=== PATIENT | male | born 1950 | race Two or more races ===

== ENCOUNTER 2017-08-16 20:11 | Inpatient (IN) | payer MEDICARE, MEDICAID ==
[~2017-08-16] VITALS: Ht 177.8 cm; Wt 77.1 kg
[~2017-08-16 20:11] MED LIST: ASPIRIN325 MG ORAL; ATORVASTATIN CA20 MG ORAL; DEPAKOTE SPRIN125 MG PO; DOCUSATE SODIU250 MG ORAL; KEPPRA LIQ100 MG/1 M ORAL; KEPPRA500 MG ORAL; LACTULOSE20 GM/301 ORAL; MULTI-VITAMIN1 EACH PO; POLYVINYL ALCOH15 ML OP
[2017-08-16] MEDS ORDERED: Lidocaine 1% Plain 30 ml INJ ONE ×2 (21:14→23:45)
[2017-08-16 21:50] VITALS: BP 207/87
[2017-08-16 21:53] LABS: BASOPHILS % (AUTO) 0.6 % (0.0-2.0); EOSINOPHILS % (AUTO) 0.7 % (0.0-3.0); HEMATOCRIT 49.2 % (42.0-52.0); LYMPHOCYTES % (AUTO) 17.9 % (20.0-45.0); MEAN CORPUSCULAR VOLUME 91 FL (80-99); MONOCYTES % (AUTO) 7.8 % (1.0-10.0); PLATELET COUNT 129 K/UL (150-450); RED CELL DISTRIBUTION WIDTH 14.2 % (11.6-14.8); WHITE BLOOD COUNT 7.3 K/UL (4.8-10.8)
[2017-08-16 21:55] LABS: ANION GAP 5 mmol/L (5-15); BLOOD UREA NITROGEN 11 mg/dL (7-18); CALCIUM 8.8 MG/DL (8.5-10.1); CARBON DIOXIDE 34 MMOL/L (21-32); CHLORIDE 108 MMOL/L (98-107); CREATININE 0.7 MG/DL (0.55-1.30); POTASSIUM 3.2 MMOL/L (3.5-5.1); SODIUM 147 MMOL/L (136-145)
[2017-08-16 22:01] LABS: ALANINE AMINOTRANSFERASE 9 U/L (12-78); ALBUMIN 3.2 G/DL (3.4-5.0); ALBUMIN/GLOBULIN RATIO 0.7 (1.0-2.7); ALKALINE PHOSPHATASE 115 U/L (46-116); ASPARTATE AMINO TRANSFERASE 18 U/L (15-37); BILIRUBIN,TOTAL 0.4 MG/DL (0.2-1.0)
[2017-08-16] MEDS ORDERED: Lidocaine 2% MPF 5ml Vial INJ ONE ×2 (22:03→23:45)
--- NOTE | 2017-08-16 22:22 | Emergency Room Report ---
History of Present Illness General Chief Complaint: Seizure Source: Patient, Medical Record Present Illness HPI Patient was a 66-year-old male who presented after witnessed seizure. [facility]. Patient prior history of seizure disorder. He was noted to have been taking the Depakote as well as other seizure medications. He was given Versed by EMS. Patient was noted to have prior baseline mental status changes due to prior CVA Allergies: Coded Allergies: No Known Allergies (Unverified , 01/11/16) Patient History Past Medical History: see triage record Reviewed Nursing Documentation: PMH: Agreed; PSxH: Agreed Nursing Documentation-PMH Past Medical History: No History, Except For Hx Cardiac Problems: Yes - athscl heart disease, anemia, hyperlipdemia Hx Hypertension: Yes Hx Asthma: Yes Hx Cancer: No Hx Gastrointestinal Problems: No History Of Psychiatric Problem: Yes - paranoid schizophrenia, depression Hx Seizures: Yes Review of Systems All Other Systems: limited - by mental status Physical Exam Vital Signs Date Time Temp Pulse Resp B/P (MAP) Pulse Ox O2 Delivery O2 Flow Rate FiO2 08/16/17 20:05 98.3 112 20 164/95 96 Non-Rebreather 15.0 98.2 General Appearance: moderate distress, Chronically Ill Neck: limited range of motion Respiratory: chest non-tender, lungs clear, normal breath sounds, no rhonchi Cardiovascular #1: normal peripheral pulses, no edema Gastrointestinal: normal inspection, soft Musculoskeletal: calf tenderness Neurologic: aphasia, motor weakness Psychiatric: depressed affect Skin: normal inspection Procedures Additional Procedure Procedure Narrative Right tibial interosseous line was placed after attempting right IJ and right subclavian central venous catheter emergently due to lack of IV access.patient was sterilely prepped with Betadine. Medical Decision Making Diagnostic Impression: Primary Impression: Uncontrolled seizures Additional Impression: Acute encephalopathy ER Course Patient presented for seizure. Differential diagnosis included cysticercosis, electrolyte abnormality, mass lesion, or cranial hemorrhage.Because of complexity of patient's case laboratory testing and imaging studies were ordered. Laboratory studies were unremarkable. The patient was noted to be somewhat somnolent after getting Versed by EMS. The patient appears to be protecting his airway.Dr. Banuelos was contacted for inpatient management due to complexity of medical condition. Labs Test 08/16/17 20:50 White Blood Count 7.3 K/UL (4.8-10.8) Red Blood Count 5.40 M/UL (4.70-6.10) Hemoglobin 16.0 G/DL (14.2-18.0) Hematocrit 49.2 % (42.0-52.0) Mean Corpuscular Volume 91 FL (80-99) Mean Corpuscular Hemoglobin 29.7 PG (27.0-31.0) Mean Corpuscular Hemoglobin Concent 32.6 G/DL (32.0-36.0) Red Cell Distribution Width 14.2 % (11.6-14.8) Platelet Count 129 K/UL (150-450) Mean Platelet Volume 8.7 FL (6.5-10.1) Neutrophils (%) (Auto) 73.0 % (45.0-75.0) Lymphocytes (%) (Auto) 17.9 % (20.0-45.0) Monocytes (%) (Auto) 7.8 % (1.0-10.0) Eosinophils (%) (Auto) 0.7 % (0.0-3.0) Basophils (%) (Auto) 0.6 % (0.0-2.0) Sodium Level 147 MMOL/L (136-145) Potassium Level 3.2 MMOL/L (3.5-5.1) Chloride Level 108 MMOL/L (98-107) Carbon Dioxide Level 34 MMOL/L (21-32) Anion Gap 5 mmol/L (5-15) Blood Urea Nitrogen 11 mg/dL (7-18) Creatinine 0.7 MG/DL (0.55-1.30) Estimat Glomerular Filtration Rate > 60 mL/min (>60) Glucose Level 131 MG/DL (74-106) Calcium Level 8.8 MG/DL (8.5-10.1) Total Bilirubin 0.4 MG/DL (0.2-1.0) Aspartate Amino Transf (AST/SGOT) 18 U/L (15-37) Alanine Aminotransferase (ALT/SGPT) 9 U/L (12-78) Alkaline Phosphatase 115 U/L (46-116) Total Protein 7.5 G/DL (6.4-8.2) Albumin 3.2 G/DL (3.4-5.0) Globulin 4.3 g/dL Albumin/Globulin Ratio 0.7 (1.0-2.7) Valproic Acid (Depakene) Level 100 MCG/ML (50-100) EKG Diagnostic Results Rate: normal Rhythm: NSR ST Segments: no acute changes Rhythm Strip Diag. Results EP Interpretation: yes Rhythm: NSR, no PVC's, no ectopy Last Vital Signs Date Time Temp Pulse Resp B/P (MAP) Pulse Ox O2 Delivery O2 Flow Rate FiO2 08/16/17 21:50 98.2 112 18 207/87 93 Nasal Cannula 6.0 98.2 Status: unchanged Disposition: ADMITTED INPATIENT Condition: Serious Moris Dowell Aug 16, 2017 22:22
[2017-08-16] MEDS ORDERED: POTASSIUM CHLO20 ME2 ORAL (23:04)
[2017-08-16] MEDS ORDERED: VITAMIN B-12100 MC1 PO (23:04)
[2017-08-16] MEDS ORDERED: KEPPRA LIQ100 MG/1 M ORAL (23:04)
[2017-08-16] MEDS ORDERED: LIPITOR20 MG ORAL (23:04)
[2017-08-16] MEDS ORDERED: LORazepam Inj 2mg/ml 1ml IV PRN (23:30)
[2017-08-16] MEDS ORDERED: Morphine Sulfate 2mg/ml Inj IVP PRN (23:30)
[2017-08-16] MEDS ORDERED: Mylanta II UD 30ml ORAL PRN (23:30)
[2017-08-16] MEDS ORDERED: Zolpidem 5mg tab ORAL PRN (23:30)
[2017-08-16] MEDS ORDERED: Miralax 17gm pkt ORAL PRN (23:30)
[2017-08-16 23:47] VITALS: BP 168/80
[2017-08-17] VITALS (7 sets, daily range): BP systolic 109–167; BP diastolic 59–71
[2017-08-17] MEDS: Depakote 125mg Sprinkles ORAL SCH ×2 (09:12→17:34)
[2017-08-17] MEDS: Heparin 5000 units/ml inj SUBQ SCH ×2 (09:13→21:00)
[2017-08-17] MEDS: levETIRAcetam 500mg/5ml Liquid ORAL SCH (09:13)
[2017-08-17] MEDS ORDERED: Lidocaine 1% Plain 30 ml INJ PRN (10:45)
[2017-08-17] MEDS ORDERED: Heparin 2000 units/Ns 1000ml INJ PRN (10:45)
--- NOTE | 2017-08-17 11:16 | History and Physical ---
History of Present Illness General Date patient seen: Aug 17, 2017 Reason for Hospitalization: Seizure Present Illness HPI 66-year-old male with hx of CVA, seizures, DNR, [facility] resident presented to ER by paramedics with CC of witnessed seizure. He was noted to have been taking the Depakote as well as other seizure medications. He was given Versed by EMS. Pt was at [facility] in 2016 for the same reason. He looks somnolent now. In no acute distress. Allergies: Coded Allergies: No Known Allergies (Unverified , 01/11/16) Medication History Scheduled Aspirin* (Aspirin*), 325 MG ORAL DAILY, (Reported) Atorvastatin Calcium* (Atorvastatin Calcium*), 20 MG ORAL BEDTIME, (Reported) Atorvastatin Calcium* (Lipitor*), 20 MG ORAL BEDTIME, (Reported) Divalproex Sodium (Depakote Sprinkle), 500 MG PO BID, (Reported) Docusate Sodium* (Docusate Sodium*), 250 MG ORAL DAILY, (Reported) Levetiracetam (Keppra), 10 ML ORAL DAILY, (Reported) Levetiracetam (Keppra), 15 ML ORAL QHS, (Reported) Levetiracetam (Keppra), 1,500 MG ORAL EVERY 12 HOURS Levetiracetam (Keppra), 10 ML ORAL DAILY, (Reported) Polyvinyl Alcohol (Polyvinyl Alcohol), 15 ML OP QID, (Reported) Potassium Chloride (Potassium Chloride), 20 MEQ ORAL DAILY, (Reported) Scheduled PRN Lactulose (Lactulose*), 30 ML ORAL DAILY PRN for Constipation, (Reported) Miscellaneous Medications Cyanocobalamin (Vitamin B-12) (Vitamin B-12), 100 MCG PO, (Reported) Multivitamin (Multi-Vitamin Daily), 1 EACH PO, (Reported) Patient History Healthcare decision maker Resuscitation status Full Code Advanced Directive on File No Past Medical/Surgical History Past Medical/Surgical History: (1) longterm resident (2) Limited mobility (3) DNR (do not resuscitate) (4) Comfort measures only status (5) Status post CVA (6) old R [employer] stroke Review of Systems All Other Systems: negative except mentioned in HPI Physical Exam General Appearance: WD/WN Lines, tubes and drains: peripheral HEENT: normocephalic, atraumatic Neck: non-tender, normal alignment Respiratory/Chest: chest wall non-tender, lungs clear, normal breath sounds Cardiovascular/Chest: normal peripheral pulses, normal rate Abdomen: normal bowel sounds Genitourinary/Rectal: normal genital exam Extremities: normal range of motion Skin Exam: normal pigmentation Neurologic: unresponsiveness, aphasia Last 24 Hour Vital Signs Date Time Temp Pulse Resp B/P (MAP) Pulse Ox O2 Delivery O2 Flow Rate FiO2 08/17/17 08:00 105 08/17/17 08:00 99.2 107 17 167/60 95 Venturi Mask 10.0 45 99.2 08/17/17 04:00 98.7 111 16 151/71 94 Venturi Mask 10.0 98.7 08/17/17 01:00 158/68 08/17/17 00:58 108 08/17/17 00:44 99.7 113 16 166/68 99 Non-Rebreather 15.0 99.7 08/17/17 00:30 99.7 114 16 168/80 100 Non-Rebreather 15.0 99.7 08/16/17 23:47 99.7 114 16 168/80 100 Non-Rebreather 15.0 99.7 08/16/17 21:50 98.2 112 18 207/87 93 Nasal Cannula 6.0 98.2 08/16/17 20:11 112 20 Non-Rebreather 15.0 08/16/17 20:05 98.3 112 20 164/95 96 Non-Rebreather 15.0 98.2 Laboratory Tests Test 08/16/17 20:50 White Blood Count 7.3 K/UL (4.8-10.8) Red Blood Count 5.40 M/UL (4.70-6.10) Hemoglobin 16.0 G/DL (14.2-18.0) Hematocrit 49.2 % (42.0-52.0) Mean Corpuscular Volume 91 FL (80-99) Mean Corpuscular Hemoglobin 29.7 PG (27.0-31.0) Mean Corpuscular Hemoglobin Concent 32.6 G/DL (32.0-36.0) Red Cell Distribution Width 14.2 % (11.6-14.8) Platelet Count 129 K/UL (150-450) L Mean Platelet Volume 8.7 FL (6.5-10.1) Neutrophils (%) (Auto) 73.0 % (45.0-75.0) Lymphocytes (%) (Auto) 17.9 % (20.0-45.0) L Monocytes (%) (Auto) 7.8 % (1.0-10.0) Eosinophils (%) (Auto) 0.7 % (0.0-3.0) Basophils (%) (Auto) 0.6 % (0.0-2.0) Sodium Level 147 MMOL/L (136-145) H Potassium Level 3.2 MMOL/L (3.5-5.1) L Chloride Level 108 MMOL/L (98-107) H Carbon Dioxide Level 34 MMOL/L (21-32) H Anion Gap 5 mmol/L (5-15) Blood Urea Nitrogen 11 mg/dL (7-18) Creatinine 0.7 MG/DL (0.55-1.30) Estimat Glomerular Filtration Rate > 60 mL/min (>60) Glucose Level 131 MG/DL (74-106) H Calcium Level 8.8 MG/DL (8.5-10.1) Total Bilirubin 0.4 MG/DL (0.2-1.0) Aspartate Amino Transf (AST/SGOT) 18 U/L (15-37) Alanine Aminotransferase (ALT/SGPT) 9 U/L (12-78) L Alkaline Phosphatase 115 U/L (46-116) Total Protein 7.5 G/DL (6.4-8.2) Albumin 3.2 G/DL (3.4-5.0) L Globulin 4.3 g/dL Albumin/Globulin Ratio 0.7 (1.0-2.7) L Valproic Acid (Depakene) Level 100 MCG/ML (50-100) Height (Feet): 5 Height (Inches): 10.00 Weight (Pounds): 170 Medications Current Medications Medications (Trade) Dose Ordered Sig/Andra Route PRN Reason Start Time Stop Time Status Last Admin Dose Admin Acetaminophen (Tylenol) 650 mg Q4H PRN ORAL fever 08/16/17 23:30 09/15/17 23:29 Al Hydroxide/Mg Hydroxide (Mylanta II) 30 ml Q6H PRN ORAL dyspepsia 08/16/17 23:30 09/15/17 23:29 Aspirin (ASA) 325 mg DAILY ORAL 08/17/17 09:00 09/16/17 08:59 08/17/17 09:12 Atorvastatin Calcium (Lipitor) 20 mg BEDTIME ORAL 08/17/17 21:00 09/16/17 20:59 Chlorhexidine Gluconate ([place]ia-Hex 2%) 1 applic DAILY@2000 TOPIC 08/17/17 20:00 09/16/17 19:59 UNV Clonidine HCl (Catapres Tab) 0.1 mg EVERY 6 HOURS PRN ORAL For High Blood Pressure 08/17/17 07:15 09/16/17 07:14 Dextrose (Dextrose 50%) STAT PRN IV Hypoglycemia 08/16/17 23:30 09/15/17 23:29 Divalproex Sodium (Depakote Sprinkles) 500 mg BID ORAL 08/17/17 09:00 09/16/17 08:59 08/17/17 09:12 Heparin Sodium (Porcine) (Heparin 5000 units/ml) 5,000 units EVERY 12 HOURS SUBQ 08/17/17 09:00 09/16/17 08:59 08/17/17 09:13 Heparin Sodium/ Sodium Chloride (Heparin 2000 units/Ns 1000ml premix) 2,000 unit ONCE ONCE INJ 08/17/17 10:45 08/17/17 10:46 UNV Levetiracetam (Keppra) 1,000 mg DAILY ORAL 08/17/17 09:00 09/16/17 08:59 08/17/17 09:13 Lidocaine HCl (Xylocaine 1% 30ml) 30 ml ONCE ONCE INJ 08/17/17 10:45 08/17/17 10:46 UNV Lorazepam (Ativan 2mg/ml 1ml) 2 mg EVERY HOUR PRN IV seizures 08/16/17 23:30 08/23/17 23:29 Morphine Sulfate (Morphine Sulfate) 1 mg EVERY 4 HOURS PRN IVP For Pain 08/16/17 23:30 08/23/17 23:29 Ondansetron HCl (Zofran) 4 mg Q6H PRN IVP Nausea & Vomiting 08/16/17 23:30 09/15/17 23:29 Polyethylene Glycol (Miralax) 17 gm HSPRN PRN ORAL Constipation 08/16/17 23:30 09/15/17 23:29 Zolpidem Tartrate (Ambien) 5 mg HSPRN PRN ORAL Insomnia 08/16/17 23:30 08/23/17 23:29 Assessment/Plan Problem List: (1) Acute encephalopathy ICD Codes: G93.40 - Encephalopathy, unspecified SNOMED: 2295848 (2) chronic seizure disorder, exacerbation (3) DNR (do not resuscitate) ICD Codes: Z66 - Do not resuscitate SNOMED: 215707690 (4) Status post CVA ICD Codes: Z86.73 - Personal history of transient ischemic attack (TIA), and cerebral infarction without residual deficits SNOMED: 469637767 Assessment/Plan npo iv fluids aspiration precaution neuro evaluation continue seizure meds Milly Banuelos MD Aug 17, 2017 11:16
--- NOTE | 2017-08-17 11:39 | Diagnostic Imaging Report ---
Indication: Altered mental status Technique: One view of the chest Comparison: 01/11/2016 Findings: Patient is rotated to the right. Lungs pleural spaces are clear. The heart size is normal. There is evidence of prior CABG. Previously demonstrated basilar parenchymal opacities are no longer evident. Old healed right rib fracture deformities and slight underlying pleural thickening again noted Impression: No acute process
[2017-08-17 11:55] LABS: BASOPHILS % (AUTO) 0.5 % (0.0-2.0); HEMATOCRIT 52.6 % (42.0-52.0); HEMOGLOBIN 17.3 G/DL (14.2-18.0); LYMPHOCYTES % (AUTO) 10.2 % (20.0-45.0); MEAN CORPUSCULAR VOLUME 92 FL (80-99); MONOCYTES % (AUTO) 9.1 % (1.0-10.0); NEUTROPHILS % (AUTO) 80.2 % (45.0-75.0); PLATELET COUNT 136 K/UL (150-450); RED BLOOD COUNT 5.73 M/UL (4.70-6.10); RED CELL DISTRIBUTION WIDTH 14.2 % (11.6-14.8); WHITE BLOOD COUNT 15.7 K/UL (4.8-10.8)
[2017-08-17 12:11] LABS: ALANINE AMINOTRANSFERASE 20 U/L (12-78); ALBUMIN 3.3 G/DL (3.4-5.0); ALBUMIN/GLOBULIN RATIO 0.7 (1.0-2.7); ALKALINE PHOSPHATASE 103 U/L (46-116); ANION GAP 9 mmol/L (5-15); ASPARTATE AMINO TRANSFERASE 25 U/L (15-37); BILIRUBIN,TOTAL 0.9 MG/DL (0.2-1.0); BLOOD UREA NITROGEN 12 mg/dL (7-18); CALCIUM 9.4 MG/DL (8.5-10.1); CARBON DIOXIDE 34 MMOL/L (21-32); CHLORIDE 103 MMOL/L (98-107); CREATININE 0.7 MG/DL (0.55-1.30); SODIUM 145 MMOL/L (136-145)
[2017-08-17] MEDS: D5W w/KCl 20mEq 1,000 ML IV SCH (13:15)
--- NOTE | 2017-08-17 14:53 | Consultation ---
Consult Note Consult Note NEUROLOGY CONSULTATION: Full note dictated #[id number] 66 y/o, ?H, HM who has a PH of a large right MCA stroke and seizure disorder. He had a recurrent seizure at his NH and was thus brought to the [facility] ER by paramedics. He has since been seizure-free. ON EXAM: Only responds to deep pain on right but not left with minimal withdrawal. Left >Right decline in corneal reflex. Globally absent DTRs with mute plantars. IMPRESSION: Breakthrough seizure in patient with prior H/O seizures. 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 REC: Continue present Rx. Continue Keppra 1 G q 12 H Continue Depakene sprinkles 500 mg q 12 H Observe. Siomara Black M.D., M.S.P.H. SIOMARA BLACK Aug 17, 2017 14:53
[2017-08-17] MEDS: Dyna-Hex 2% Top Sol 2oz TOPIC SCH (21:35)
[2017-08-17] MEDS: Atorvastatin 20mg tab ORAL SCH (21:35)
--- NOTE | 2017-08-17 22:15 | Consultation ---
DATE OF CONSULTATION: 08/17/2017 NEUROLOGY CONSULTATION CONSULTING PHYSICIAN: Kendell Black M.D. REQUESTING PHYSICIAN: Milly Banuelos M.D. HISTORY: Mr. William Garay is a 66-year-old, gentleman, of unknown handedness, who does have a past history of a large right middle cerebral artery territory stroke and a seizure disorder. He was functioning relatively well at his senior living until 08/16/2017 when he had a seizure in his senior living. He apparently had a generalized tonic-clonic seizure. When the paramedics got to him they gave him Versed for reasons unknown. He was then brought into the [facility] emergency room and has been poorly responsive since then. He however has not had any further seizures. At this point in time, he continues to be poorly responsive, but seizure free. This consultation was requested to evaluate and manage the patient's seizure disorder. At this point in time, the patient cannot give me any history. PAST MEDICAL HISTORY: Significant for cerebrovascular disease with a large right-sided stroke and poststroke seizure disorder. FAMILY HISTORY: Unavailable PERSONAL HISTORY: Home: He lives in a senior living. Work: He is unemployed. Habits: Unknown. PRESENT MEDICATIONS: Include atorvastatin, heparin for DVT prophylaxis, aspirin, Depakote sprinkles 500 mg twice a day, Keppra 1000 mg twice a day, clonidine p.r.n., Ambien p.r.n., Ativan p.r.n., Zofran p.r.n., morphine p.r.n., Tylenol p.r.n., and MiraLAX. PHYSICAL EXAMINATION: GENERAL: This is a well-developed, well-nourished gentleman, lying in bed, in no acute distress. VITAL SIGNS: Pulse 93 per minute, blood pressure 109/62 mmHg, respirations 16 per minute, and temperature 98.6 degrees Fahrenheit. HEAD: Normocephalic and atraumatic. EENT: Examination benign. NECK: No neck rigidity was observed. NEUROLOGICAL EXAMINATION: MENTAL STATUS EXAMINATION: He was only responsive to deep pain with minimal eye opening and right-sided withdrawal, but no left-sided withdrawal. Further mental status testing was impossible. SPEECH: Could not be tested. LANGUAGE: Could not be tested. CRANIAL NERVE EXAMINATION: II: He did not blink to threat. III, IV & : The external ocular movements were present on oculocephalic maneuvers. The pupils were 3 mm in diameter, equal, round, regular, and reactive sluggishly to light. V & VII: The corneal reflex was diminished on the left side compared to the right side. VIII: He did not respond to sounds and had no nystagmus. IX & X: The gag reflex was diminished. XI: The sternocleidomastoids and trapezii did not function. XII: Could not be tested adequately. MOTOR SYSTEM: The tone was normal in all four extremities. Examination of muscle mass revealed generalized muscle wasting involving the lower extremities more than the upper extremities. Examination of power was impossible to perform on individual muscle groups. When deep painful stimuli were applied, there was minimal withdrawal of the right upper and lower extremities, but not in the left upper and lower extremities. SENSORY EXAMINATION: He responded only to deep pain on the right side, but not the left. REFLEXES: 0 at the biceps, triceps, brachioradialis, knees, and ankles. The plantar responses were mute bilaterally. COORDINATION, STANCE & GAIT: Could not be tested. DIAGNOSTIC IMPRESSION: 1. Mr. 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 He was hospitalized for a single breakthrough seizure in his senior living. He however was given Versed following the event and has since been poorly responsive. 2. On neurological examination, at this time, he only responds to deep pain on right-sided stimuli, but not left-sided stimuli. He has a diminished corneal reflex on the left side, globally absent deep tendon reflexes with mute plantar responses. 3. Laboratory data thus far have revealed that he has a significant leukocytosis with a WBC count of 15,700. He is dehydrated with a hemoglobin of 17.3 and sodium elevated to 147 with a chloride of 108. His glucose is minimally elevated and his albumin is low. 4. The patient's history and neurological examination are most compatible with a breakthrough seizure most probably related to an acute infectious process in this patient who does have prior intracranial pathology and a seizure disorder. RECOMMENDATIONS: 1. Agree with management thus far. 2. Would try to determine location of the patient's infectious process and treat it appropriately. 3. Would try to hydrate the patient better. 4. Would continue the patient on the present therapeutic regimen of Keppra 1 G q 12 hours and Depakote 500 mg q12 hours. 5. Depending on how the patient fares over the next day or so further recommendations will be made. Thank you for entrusting me with the care of Mr. Garay. I shall follow him with you. Kendell Black M.D., M.S.P.H. DR: BIJAN JOB#: [id number] [email or web address]
[2017-08-18] VITALS: BP 148/68
[2017-08-18] MEDS: LORazepam Inj 2mg/ml 1ml IV PRN ×2 (02:31→14:12)
[2017-08-18 04:00] VITALS: BP 110/56
--- NOTE | 2017-08-18 07:37 | Pulmonology Progress Note ---
Assessment/Plan Assessment/Plan ASSESSMENT Acute toxic metabolic encephalopathy 2 to seizure Breakthrough seizure with hx of chronic seizure disorder hx of large R MCA CVA hypokalemia hematuria dementia with behavioral disturbances PLAN OF CARE HARI initially NPO gentle IVF Seizure precautions Keppra and Depakote Ativan prn for breakthrough seizures Neuro eval appreciated DVT prophylaxis when more awake started on diet swallow eval Home meds resumed, including ASA and statin K replacement, check K and Mg in am stop heparin venous Duplex BLE and if negative SCD check UA monitor HH, stable for now get UA monitor urinary output psych eval DNR/DNI status case discussed and evaluated by supervising physician Subjective Allergies: Coded Allergies: No Known Allergies (Unverified , 01/11/16) Subjective in HARI on VM hematuria K-3.3 agitated Objective Last 24 Hour Vital Signs Date Time Temp Pulse Resp B/P (MAP) Pulse Ox O2 Delivery O2 Flow Rate FiO2 08/18/17 04:00 97.7 70 20 110/56 96 Venturi Mask 10.0 45 97.7 08/18/17 03:50 75 08/18/17 00:00 98.1 90 20 148/68 100 Venturi Mask 10.0 45 98.1 08/17/17 23:51 82 08/17/17 20:00 98.1 85 20 150/66 100 Venturi Mask 10.0 45 98.1 08/17/17 19:32 76 08/17/17 19:12 Venturi Mask 10.0 45 08/17/17 19:12 99 Venturi Mask 10.0 45 08/17/17 16:00 98.5 87 21 118/59 99 Venturi Mask 10.0 45 98.5 08/17/17 16:00 85 08/17/17 12:00 98.6 93 16 109/62 91 Venturi Mask 10.0 45 98.6 08/17/17 12:00 93 08/17/17 08:00 105 08/17/17 08:00 99.2 107 17 167/60 95 Venturi Mask 10.0 45 99.2 Intake and Output 08/17/17 08/18/17 19:00 07:00 Intake Total 287.5 ml 600 ml Output Total 200 ml Balance 287.5 ml 400 ml Intake IV Total 287.5 ml 600 ml Output Urine Total 200 ml # Voids 3 1 # Bowel Movements 1 Objective General Appearance: no acute distress HEENT: normocephalic, atraumatic, anicteric, other - VM 45% Respiratory/Chest: no respiratory distress, no accessory muscle use Cardiovascular: normal rate - SR on tele , regular rhythm Abdomen: normal bowel sounds, soft, non tender, non distended Neurologic/Psychiatric: abnormal gait, alert, restless Laboratory Tests 08/17/17 11:15: White Blood Count 15.7#H, Red Blood Count 5.73, Hemoglobin 17.3, Hematocrit 52.6H, Mean Corpuscular Volume 92, Mean Corpuscular Hemoglobin 30.2, Mean Corpuscular Hemoglobin Concent 32.9, Red Cell Distribution Width 14.2, Platelet Count 136L, Mean Platelet Volume 8.4, Neutrophils (%) (Auto) 80.2H, Lymphocytes (%) (Auto) 10.2L, Monocytes (%) (Auto) 9.1, Eosinophils (%) (Auto) 0.0, Basophils (%) (Auto) 0.5, Sodium Level 145, Potassium Level 3.0L, Chloride Level 103, Carbon Dioxide Level 34H, Anion Gap 9, Blood Urea Nitrogen 12, Creatinine 0.7, Estimat Glomerular Filtration Rate > 60, Glucose Level 132H, Calcium Level 9.4, Total Bilirubin 0.9, Aspartate Amino Transf (AST/SGOT) 25, Alanine Aminotransferase (ALT/SGPT) 20, Alkaline Phosphatase 103, Total Protein 7.9, Albumin 3.3L, Globulin 4.6, Albumin/Globulin Ratio 0.7L Current Medications Medications (Trade) Dose Ordered Sig/Andra Route PRN Reason Start Time Stop Time Status Last Admin Dose Admin Acetaminophen (Tylenol) 650 mg Q4H PRN ORAL fever 08/16/17 23:30 09/15/17 23:29 Al Hydroxide/Mg Hydroxide (Mylanta II) 30 ml Q6H PRN ORAL dyspepsia 08/16/17 23:30 09/15/17 23:29 Aspirin (ASA) 325 mg DAILY ORAL 08/17/17 09:00 09/16/17 08:59 08/17/17 09:12 Atorvastatin Calcium (Lipitor) 20 mg BEDTIME ORAL 08/17/17 21:00 09/16/17 20:59 08/17/17 21:35 Chlorhexidine Gluconate ([place]-Hex 2%) 1 applic DAILY@2000 TOPIC 08/17/17 20:00 09/16/17 19:59 08/17/17 21:35 Clonidine HCl (Catapres Tab) 0.1 mg EVERY 6 HOURS PRN ORAL For High Blood Pressure 08/17/17 07:15 09/16/17 07:14 Dextrose (Dextrose 50%) STAT PRN IV Hypoglycemia 08/16/17 23:30 09/15/17 23:29 Dextrose/ Electrolytes 1,000 ml @ 50 mls/hr Q20H IV 08/17/17 12:00 09/16/17 11:59 08/17/17 13:15 Divalproex Sodium (Depakote Sprinkles) 500 mg BID ORAL 08/17/17 09:00 09/16/17 08:59 08/17/17 09:12 Heparin Sodium (Porcine) (Heparin 5000 units/ml) 5,000 units EVERY 12 HOURS SUBQ 08/17/17 09:00 09/16/17 08:59 08/17/17 09:13 Heparin Sodium/ Sodium Chloride (Heparin 2000 units/Ns 1000ml premix) 2,000 unit ONCE PRN INJ PICC LINE PLACEMENT 08/17/17 10:45 08/18/17 23:59 Levetiracetam (Keppra) 1,000 mg DAILY ORAL 08/17/17 09:00 09/16/17 08:59 08/17/17 09:13 Lidocaine HCl (Xylocaine 1% 30ml) 30 ml ONCE PRN INJ PICC LINE PLACEMENT 08/17/17 10:45 08/18/17 23:59 Lorazepam (Ativan 2mg/ml 1ml) 1 mg Q4H PRN IV For agitation 08/18/17 02:15 08/25/17 02:14 08/18/17 02:31 Lorazepam (Ativan 2mg/ml 1ml) 2 mg EVERY HOUR PRN IV seizures 08/16/17 23:30 08/23/17 23:29 Morphine Sulfate (Morphine Sulfate) 1 mg EVERY 4 HOURS PRN IVP For Pain 08/16/17 23:30 08/23/17 23:29 08/17/17 23:51 Ondansetron HCl (Zofran) 4 mg Q6H PRN IVP Nausea & Vomiting 08/16/17 23:30 09/15/17 23:29 Polyethylene Glycol (Miralax) 17 gm HSPRN PRN ORAL Constipation 08/16/17 23:30 09/15/17 23:29 Zolpidem Tartrate (Ambien) 5 mg HSPRN PRN ORAL Insomnia 08/16/17 23:30 08/23/17 23:29 08/17/17 23:50 Shiva ([facility])Liliana NP Aug 18, 2017 07:37
[2017-08-18 08:00] VITALS: BP 134/71
[2017-08-18] MEDS: Heparin 5000 units/ml inj SUBQ SCH (09:00)
[2017-08-18 09:02] LABS: ANION GAP 2 mmol/L (5-15); BLOOD UREA NITROGEN 17 mg/dL (7-18); CALCIUM 9.3 MG/DL (8.5-10.1); CARBON DIOXIDE 38 MMOL/L (21-32); CHLORIDE 105 MMOL/L (98-107); CREATININE 0.8 MG/DL (0.55-1.30); POTASSIUM 3.3 MMOL/L (3.5-5.1); SODIUM 145 MMOL/L (136-145)
[2017-08-18 09:12] LABS: HEMATOCRIT 46.9 % (42.0-52.0); HEMOGLOBIN 15.5 G/DL (14.2-18.0); MEAN CORPUSCULAR VOLUME 92 FL (80-99); PLATELET COUNT 97 K/UL (150-450); RED BLOOD COUNT 5.12 M/UL (4.70-6.10); RED CELL DISTRIBUTION WIDTH 14.3 % (11.6-14.8); WHITE BLOOD COUNT 8.4 K/UL (4.8-10.8)
[2017-08-18] MEDS: D5W w/KCl 20mEq 1,000 ML IV SCH (09:20)
[2017-08-18] MEDS: levETIRAcetam 500mg/5ml Liquid ORAL SCH (09:21)
[2017-08-18] MEDS: Depakote 125mg Sprinkles ORAL SCH ×2 (09:22→18:41)
[2017-08-18 12:00] VITALS: BP 114/100
--- NOTE | 2017-08-18 15:23 | Neurology Progress Note ---
Interim History Interim History Interim History Mr. Garay has woken up. He was apparently agitated and combative and was given IV Ativan. He at this time is sedated and only responds to deep pain with eye opening and minimal arousal. He has been seizure-free. Review of Systems Neuro Review of Systems Unable to obtain. Objective Physical Exam Last Vital Signs Date Time Temp Pulse Resp B/P (MAP) Pulse Ox O2 Delivery O2 Flow Rate FiO2 08/18/17 12:00 97.9 83 18 114/100 92 Venturi Mask 10.0 45 97.9 Laboratory Tests Test 08/18/17 08:30 White Blood Count 8.4 K/UL (4.8-10.8) Red Blood Count 5.12 M/UL (4.70-6.10) Hemoglobin 15.5 G/DL (14.2-18.0) Hematocrit 46.9 % (42.0-52.0) Mean Corpuscular Volume 92 FL (80-99) Mean Corpuscular Hemoglobin 30.3 PG (27.0-31.0) Mean Corpuscular Hemoglobin Concent 33.1 G/DL (32.0-36.0) Red Cell Distribution Width 14.3 % (11.6-14.8) Platelet Count 97 K/UL (150-450) L Mean Platelet Volume 8.5 FL (6.5-10.1) Neutrophils (%) (Auto) % (45.0-75.0) Lymphocytes (%) (Auto) % (20.0-45.0) Monocytes (%) (Auto) % (1.0-10.0) Eosinophils (%) (Auto) % (0.0-3.0) Basophils (%) (Auto) % (0.0-2.0) Differential Total Cells Counted 100 Neutrophils % (Manual) 67 % (45-75) Lymphocytes % (Manual) 23 % (20-45) Monocytes % (Manual) 10 % (1-10) Eosinophils % (Manual) 0 % (0-3) Basophils % (Manual) 0 % (0-2) Band Neutrophils 0 % (0-8) Platelet Estimate Decreased L Platelet Morphology Normal Red Blood Cell Morphology Normal Sodium Level 145 MMOL/L (136-145) Potassium Level 3.3 MMOL/L (3.5-5.1) L Chloride Level 105 MMOL/L (98-107) Carbon Dioxide Level 38 MMOL/L (21-32) H Anion Gap 2 mmol/L (5-15) L Blood Urea Nitrogen 17 mg/dL (7-18) Creatinine 0.8 MG/DL (0.55-1.30) Estimat Glomerular Filtration Rate > 60 mL/min (>60) Glucose Level 95 MG/DL (74-106) Calcium Level 9.3 MG/DL (8.5-10.1) Neurologic Exam Objective PHYSICAL EXAMINATION: GENERAL: This is a well-developed, well-nourished gentleman, lying in bed, in no acute distress. HEAD: Normocephalic and atraumatic. EENT: Examination benign. NECK: No neck rigidity was observed. NEUROLOGICAL EXAMINATION: MENTAL STATUS EXAMINATION: He was only responsive to deep pain with minimal eye opening and right-sided withdrawal, but no left-sided withdrawal. Further mental status testing was impossible. SPEECH: Could not be tested. LANGUAGE: Could not be tested. CRANIAL NERVE EXAMINATION: II: He did blink to threat when aroused. III, IV & : The external ocular movements were present on oculocephalic maneuvers. The pupils were 3 mm in diameter, equal, round, regular, and reactive sluggishly to light. V & VII: The corneal reflex was diminished on the left side compared to the right side. VIII: He did respond to sounds and had no nystagmus. IX & X: The gag reflex was diminished. XI: The sternocleidomastoids and trapezii did function. XII: The tongue was in the midline. MOTOR SYSTEM: The tone was normal in all four extremities. Examination of muscle mass revealed generalized muscle wasting involving the lower extremities more than the upper extremities. Examination of power was impossible to perform on individual muscle groups. When deep painful stimuli were applied, there was robust withdrawal of the right upper and lower extremities, and minimal withdrawal of the left upper and lower extremities. SENSORY EXAMINATION: He responded only to deep pain on the right side more than the left. REFLEXES: 0 at the biceps, triceps, brachioradialis, knees, and ankles. The plantar responses were mute bilaterally. COORDINATION, STANCE & GAIT: Could not be tested. Impression/Recommendations Diagnostic Impression 1. Mr. 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 He was hospitalized for a single breakthrough seizure in his senior care. He however was given Versed following the event and following that was poorly responsive. 2. He has woken up. He was apparently agitated and combative and was given IV Ativan. He at this time is sedated and only responds to deep pain with eye opening and minimal arousal. He has been seizure-free. 3. On neurological examination, at this time, he only responds to deep pain with eye opening, exhibits nonsensical verbalization, has a diminished corneal reflex on the left side, robust withdrawal of the right upper and lower extremities, and minimal withdrawal of the left upper and lower extremities to deep pain. Globally absent deep tendon reflexes with mute plantar responses. 4. Laboratory data thus far have revealed that he has a significant leukocytosis with a WBC count of 15,700. He is dehydrated with a hemoglobin of 17.3 and sodium elevated to 147 with a chloride of 108. His glucose is minimally elevated and his albumin is low. 5. The patient's history and neurological examination are most compatible with a breakthrough seizure most probably related to an acute infectious process in this patient who does have prior intracranial pathology and a seizure disorder. Recommendations 1. Continue present management. 2. Treatment of patient's infectious process. 3. Correction of fluid and electrolyte status. 4. Continue Keppra 1 G q 12 hours and Depakote 500 mg q12 hours. 5. Refrain from use of mind altering drugs. 6. Preferable to use physical rather than chemical restraints. Siomara Black M.D., M.S.P.SIOMARA CONNELL Aug 18, 2017 15:23
[2017-08-18 16:00] VITALS: BP 138/103
[2017-08-18 20:00] VITALS: BP 186/139
[2017-08-18] MEDS: Dyna-Hex 2% Top Sol 2oz TOPIC SCH (20:00)
[2017-08-18] MEDS: Atorvastatin 20mg tab ORAL SCH (20:29)
[2017-08-19] VITALS: BP 125/66
[2017-08-19] MEDS: D5W w/KCl 20mEq 1,000 ML IV SCH (03:59)
[2017-08-19 04:00] VITALS: BP 140/71
[2017-08-19 08:00] VITALS: BP 175/78
--- NOTE | 2017-08-19 08:08 | Pulmonology Progress Note ---
Assessment/Plan Assessment/Plan ASSESSMENT Acute toxic metabolic encephalopathy 2 to seizure Breakthrough seizure with hx of chronic seizure disorder hx of large R MCA CVA hypokalemia hematuria dementia with behavioral disturbances PLAN OF CARE tele initially NPO gentle IVF Seizure precautions Keppra and Depakote Ativan prn for breakthrough seizures Neuro eval appreciated DVT prophylaxis when more awake started on diet swallow eval Home meds resumed, including ASA and statin s/p K replacement, check K and Mg stop heparin venous Duplex BLE and if negative SCD check UA monitor HH, stable for now get UA monitor urinary output psych eval DNR/DNI status case discussed and evaluated by supervising physician Subjective Allergies: Coded Allergies: No Known Allergies (Unverified , 01/11/16) Subjective transferred to tele still on labs pending for this am Objective Last 24 Hour Vital Signs Date Time Temp Pulse Resp B/P (MAP) Pulse Ox O2 Delivery O2 Flow Rate FiO2 08/19/17 04:00 97.0 76 18 140/71 96 Venturi Mask 10.0 45 97.0 08/19/17 04:00 75 08/19/17 00:00 98.9 76 18 125/66 98 Venturi Mask 10.0 45 98.9 08/19/17 00:00 76 08/18/17 20:29 186/139 08/18/17 20:00 115 08/18/17 20:00 97.7 114 18 186/139 94 Venturi Mask 10.0 45 97.7 08/18/17 19:30 97 Venturi Mask 10.0 45 08/18/17 19:30 Venturi Mask 10.0 45 08/18/17 16:00 87 08/18/17 16:00 98.2 104 18 138/103 96 Venturi Mask 10.0 45 98.2 08/18/17 12:00 97.9 83 18 114/100 92 Venturi Mask 10.0 45 97.9 08/18/17 11:47 84 08/18/17 09:31 Venturi Mask 10.0 45 08/18/17 09:31 97 Venturi Mask 10.0 45 Intake and Output 08/18/17 08/19/17 19:00 07:00 Output Total 200 ml 200 ml Balance -200 ml -200 ml Output Urine Total 200 ml 200 ml Microbiology Date/Time Source Procedure Growth Status 08/17/17 00:00 Nasal Nares MRSA Culture - Final NO METHICILLIN RESISTANT STAPH AUREUS... Complete Laboratory Tests 08/18/17 08:30: White Blood Count 8.4, Red Blood Count 5.12, Hemoglobin 15.5, Hematocrit 46.9, Mean Corpuscular Volume 92, Mean Corpuscular Hemoglobin 30.3, Mean Corpuscular Hemoglobin Concent 33.1, Red Cell Distribution Width 14.3, Platelet Count 97L, Mean Platelet Volume 8.5, Neutrophils (%) (Auto) , Lymphocytes (%) (Auto) , Monocytes (%) (Auto) , Eosinophils (%) (Auto) , Basophils (%) (Auto) , Differential Total Cells Counted 100, Neutrophils % (Manual) 67, Lymphocytes % ( Manual) 23, Monocytes % (Manual) 10, Eosinophils % (Manual) 0, Basophils % ( Manual) 0, Band Neutrophils 0, Platelet Estimate DecreasedL, Platelet Morphology Normal, Red Blood Cell Morphology Normal, Sodium Level 145, Potassium Level 3.3L, Chloride Level 105, Carbon Dioxide Level 38H, Anion Gap 2L , Blood Urea Nitrogen 17, Creatinine 0.8, Estimat Glomerular Filtration Rate > 60, Glucose Level 95, Calcium Level 9.3 Current Medications Medications (Trade) Dose Ordered Sig/Andra Route PRN Reason Start Time Stop Time Status Last Admin Dose Admin Acetaminophen (Tylenol) 650 mg Q4H PRN ORAL fever 08/16/17 23:30 09/15/17 23:29 Al Hydroxide/Mg Hydroxide (Mylanta II) 30 ml Q6H PRN ORAL dyspepsia 08/16/17 23:30 09/15/17 23:29 Aspirin (ASA) 325 mg DAILY ORAL 08/17/17 09:00 09/16/17 08:59 08/18/17 09:21 Atorvastatin Calcium (Lipitor) 20 mg BEDTIME ORAL 08/17/17 21:00 09/16/17 20:59 08/18/17 20:29 Chlorhexidine Gluconate ([place]-Hex 2%) 1 applic DAILY@1999 TOPIC 08/17/17 20:00 09/16/17 19:59 08/17/17 21:35 Clonidine HCl (Catapres Tab) 0.1 mg EVERY 6 HOURS PRN ORAL For High Blood Pressure 08/17/17 07:15 09/16/17 07:14 08/18/17 20:29 Dextrose (Dextrose 50%) STAT PRN IV Hypoglycemia 08/16/17 23:30 09/15/17 23:29 Dextrose/ Electrolytes 1,000 ml @ 50 mls/hr Q20H IV 08/17/17 12:00 09/16/17 11:59 08/19/17 03:59 Divalproex Sodium (Depakote Sprinkles) 500 mg BID ORAL 08/17/17 09:00 09/16/17 08:59 08/18/17 18:41 Levetiracetam (Keppra) 1,000 mg DAILY ORAL 08/17/17 09:00 09/16/17 08:59 08/18/17 09:21 Lorazepam (Ativan 2mg/ml 1ml) 1 mg Q4H PRN IV For agitation 08/18/17 02:15 08/25/17 02:14 08/18/17 14:12 Lorazepam (Ativan 2mg/ml 1ml) 2 mg EVERY HOUR PRN IV seizures 08/16/17 23:30 08/23/17 23:29 Morphine Sulfate (Morphine Sulfate) 1 mg EVERY 4 HOURS PRN IVP For Pain 08/16/17 23:30 08/23/17 23:29 08/17/17 23:51 Ondansetron HCl (Zofran) 4 mg Q6H PRN IVP Nausea & Vomiting 08/16/17 23:30 09/15/17 23:29 Polyethylene Glycol (Miralax) 17 gm HSPRN PRN ORAL Constipation 08/16/17 23:30 09/15/17 23:29 Zolpidem Tartrate (Ambien) 5 mg HSPRN PRN ORAL Insomnia 08/16/17 23:30 08/23/17 23:29 08/17/17 23:50 Liliana Shannon NP ([facility]anchte[facility]) Aug 19, 2017 08:08
[2017-08-19 08:24] LABS: BASOPHILS % (AUTO) 0.8 % (0.0-2.0); EOSINOPHILS % (AUTO) 1.4 % (0.0-3.0); HEMATOCRIT 42.3 % (42.0-52.0); HEMOGLOBIN 14.5 G/DL (14.2-18.0); LYMPHOCYTES % (AUTO) 22.4 % (20.0-45.0); MEAN CORPUSCULAR VOLUME 90 FL (80-99); MONOCYTES % (AUTO) 11.7 % (1.0-10.0); NEUTROPHILS % (AUTO) 63.7 % (45.0-75.0); PLATELET COUNT 108 K/UL (150-450); RED BLOOD COUNT 4.68 M/UL (4.70-6.10); WHITE BLOOD COUNT 7.3 K/UL (4.8-10.8)
[2017-08-19 08:58] LABS: ANION GAP 7 mmol/L (5-15); BLOOD UREA NITROGEN 13 mg/dL (7-18); CALCIUM 8.6 MG/DL (8.5-10.1); CARBON DIOXIDE 33 MMOL/L (21-32); CHLORIDE 104 MMOL/L (98-107); CREATININE 0.6 MG/DL (0.55-1.30); SODIUM 144 MMOL/L (136-145)
[2017-08-19] MEDS: Depakote 125mg Sprinkles ORAL SCH ×2 (09:48→17:47)
[2017-08-19] MEDS: levETIRAcetam 500mg/5ml Liquid ORAL SCH (09:48)
[2017-08-19] MEDS ORDERED: Tubing IV Secondary IV ONE (10:52)
[2017-08-19] MEDS ORDERED: NS 275ml ONE (10:52)
--- NOTE | 2017-08-19 11:05 | Pulmonology Progress Note ---
Assessment/Plan Assessment/Plan ASSESSMENT Acute toxic metabolic encephalopathy 2 to seizure Breakthrough seizure with hx of chronic seizure disorder hx of large R MCA CVA hypokalemia hematuria dementia with behavioral disturbances HTN PLAN OF CARE tele initially NPO gentle IVF Seizure precautions Keppra and Depakote Ativan prn for breakthrough seizures Neuro eval appreciated DVT prophylaxis when more awake started on diet swallow eval Home meds resumed, including ASA and statin replace K, Mg-stable off heparin venous Duplex BLE and if negative SCD check UA HH renal parameters stable IVF monitor urinary output psych eval monitor BP, add low dose Norvasc, Clonidine prn , titrate further as needed DNR/DNI status case discussed and evaluated by supervising physician Subjective Allergies: Coded Allergies: No Known Allergies (Unverified , 01/11/16) Subjective transferred to tele still on VM no further seizures K-3.0 urine still dark, BP elevated Objective Last 24 Hour Vital Signs Date Time Temp Pulse Resp B/P (MAP) Pulse Ox O2 Delivery O2 Flow Rate FiO2 08/19/17 08:00 98.2 72 18 175/78 99 Venturi Mask 10.0 45 98.2 08/19/17 04:00 97.0 76 18 140/71 96 Venturi Mask 10.0 45 97.0 08/19/17 04:00 75 08/19/17 00:00 98.9 76 18 125/66 98 Venturi Mask 10.0 45 98.9 08/19/17 00:00 76 08/18/17 20:29 186/139 08/18/17 20:00 115 08/18/17 20:00 97.7 114 18 186/139 94 Venturi Mask 10.0 45 97.7 08/18/17 19:30 97 Venturi Mask 10.0 45 08/18/17 19:30 Venturi Mask 10.0 45 08/18/17 16:00 87 08/18/17 16:00 98.2 104 18 138/103 96 Venturi Mask 10.0 45 98.2 08/18/17 12:00 97.9 83 18 114/100 92 Venturi Mask 10.0 45 97.9 08/18/17 11:47 84 Intake and Output 08/18/17 08/19/17 19:00 07:00 Output Total 200 ml 200 ml Balance -200 ml -200 ml Output Urine Total 200 ml 200 ml General Appearance: no acute distress HEENT: normocephalic, atraumatic, anicteric, other - VM 45% Respiratory/Chest: no respiratory distress, no accessory muscle use Cardiovascular: normal rate - SR on tele , regular rhythm Abdomen: normal bowel sounds, soft, non tender, non distended Neurologic/Psychiatric: abnormal gait, alert - restless Microbiology Date/Time Source Procedure Growth Status 08/17/17 00:00 Nasal Nares MRSA Culture - Final NO METHICILLIN RESISTANT STAPH AUREUS... Complete Laboratory Tests 08/19/17 07:43: White Blood Count 7.3, Red Blood Count 4.68L, Hemoglobin 14.5, Hematocrit 42.3, Mean Corpuscular Volume 90, Mean Corpuscular Hemoglobin 30.9, Mean Corpuscular Hemoglobin Concent 34.2, Red Cell Distribution Width 14.0, Platelet Count 108L, Mean Platelet Volume 8.4, Neutrophils (%) (Auto) 63.7, Lymphocytes (%) (Auto) 22.4, Monocytes (%) (Auto) 11.7H, Eosinophils (%) (Auto) 1.4, Basophils (%) ( Auto) 0.8, Sodium Level 144, Potassium Level 3.0L, Chloride Level 104, Carbon Dioxide Level 33H, Anion Gap 7, Blood Urea Nitrogen 13, Creatinine 0.6, Estimat Glomerular Filtration Rate > 60, Glucose Level 88, Calcium Level 8.6, Magnesium Level 1.8 Current Medications Medications (Trade) Dose Ordered Sig/Andra Route PRN Reason Start Time Stop Time Status Last Admin Dose Admin Acetaminophen (Tylenol) 650 mg Q4H PRN ORAL fever 08/16/17 23:30 09/15/17 23:29 Al Hydroxide/Mg Hydroxide (Mylanta II) 30 ml Q6H PRN ORAL dyspepsia 08/16/17 23:30 09/15/17 23:29 Aspirin (ASA) 325 mg DAILY ORAL 08/17/17 09:00 09/16/17 08:59 08/19/17 09:48 Atorvastatin Calcium (Lipitor) 20 mg BEDTIME ORAL 08/17/17 21:00 09/16/17 20:59 08/18/17 20:29 Chlorhexidine Gluconate ([place]-Hex 2%) 1 applic DAILY@1999 TOPIC 08/17/17 20:00 09/16/17 19:59 08/17/17 21:35 Clonidine HCl (Catapres Tab) 0.1 mg EVERY 6 HOURS PRN ORAL For High Blood Pressure 08/17/17 07:15 09/16/17 07:14 08/18/17 20:29 Dextrose (Dextrose 50%) STAT PRN IV Hypoglycemia 08/16/17 23:30 09/15/17 23:29 Dextrose/ Electrolytes 1,000 ml @ 50 mls/hr Q20H IV 08/17/17 12:00 09/16/17 11:59 08/19/17 03:59 Divalproex Sodium (Depakote Sprinkles) 500 mg BID ORAL 08/17/17 09:00 09/16/17 08:59 08/19/17 09:48 Levetiracetam (Keppra) 1,000 mg DAILY ORAL 08/17/17 09:00 09/16/17 08:59 08/19/17 09:48 Lorazepam (Ativan 2mg/ml 1ml) 1 mg Q4H PRN IV For agitation 08/18/17 02:15 08/25/17 02:14 08/18/17 14:12 Lorazepam (Ativan 2mg/ml 1ml) 2 mg EVERY HOUR PRN IV seizures 08/16/17 23:30 08/23/17 23:29 Morphine Sulfate (Morphine Sulfate) 1 mg EVERY 4 HOURS PRN IVP For Pain 08/16/17 23:30 08/23/17 23:29 08/17/17 23:51 Ondansetron HCl (Zofran) 4 mg Q6H PRN IVP Nausea & Vomiting 08/16/17 23:30 09/15/17 23:29 Polyethylene Glycol (Miralax) 17 gm HSPRN PRN ORAL Constipation 08/16/17 23:30 09/15/17 23:29 Zolpidem Tartrate (Ambien) 5 mg HSPRN PRN ORAL Insomnia 08/16/17 23:30 08/23/17 23:29 08/17/17 23:50 Liliana Shannon NP ([facility]) Aug 19, 2017 11:05
[2017-08-19 12:00] VITALS: BP 162/80
[2017-08-19 13:41] LABS: APPEARANCE,URINE SLIGHTLY CLOUDY; BILIRUBIN, URINE NEGATIVE (NEGATIVE); COLOR,URINE BROWN; GLUCOSE, URINE (UA) NEGATIVE (NEGATIVE); KETONES,URINE NEGATIVE (NEGATIVE); LEUKOCYTE ESTERASE ,URINE 2+ (NEGATIVE); NITRITE,URINE POSITIVE (NEGATIVE); PH,URINE 8 (4.5-8.0); PROTEIN,URINE 3+ (NEGATIVE); UROBILINOGEN,URINE 8 MG/DL (0.0-1.0)
--- NOTE | 2017-08-19 14:14 | Neurology Progress Note ---
Interim History Interim History Interim History Mr. Garay continues to be arousable. As per his nurse he has been less agitated. He continues to be sleepy and only responds to deep pain with eye opening and minimal arousal. He has been seizure-free. Review of Systems Neuro Review of Systems Unable to obtain. Objective Physical Exam Last Vital Signs Date Time Temp Pulse Resp B/P (MAP) Pulse Ox O2 Delivery O2 Flow Rate FiO2 08/19/17 12:14 71 175/78 08/19/17 12:00 97.7 20 95 Venturi Mask 10.0 45 97.7 Laboratory Tests Test 08/19/17 07:43 08/19/17 12:45 White Blood Count 7.3 K/UL (4.8-10.8) Red Blood Count 4.68 M/UL (4.70-6.10) L Hemoglobin 14.5 G/DL (14.2-18.0) Hematocrit 42.3 % (42.0-52.0) Mean Corpuscular Volume 90 FL (80-99) Mean Corpuscular Hemoglobin 30.9 PG (27.0-31.0) Mean Corpuscular Hemoglobin Concent 34.2 G/DL (32.0-36.0) Red Cell Distribution Width 14.0 % (11.6-14.8) Platelet Count 108 K/UL (150-450) L Mean Platelet Volume 8.4 FL (6.5-10.1) Neutrophils (%) (Auto) 63.7 % (45.0-75.0) Lymphocytes (%) (Auto) 22.4 % (20.0-45.0) Monocytes (%) (Auto) 11.7 % (1.0-10.0) H Eosinophils (%) (Auto) 1.4 % (0.0-3.0) Basophils (%) (Auto) 0.8 % (0.0-2.0) Sodium Level 144 MMOL/L (136-145) Potassium Level 3.0 MMOL/L (3.5-5.1) L Chloride Level 104 MMOL/L (98-107) Carbon Dioxide Level 33 MMOL/L (21-32) H Anion Gap 7 mmol/L (5-15) Blood Urea Nitrogen 13 mg/dL (7-18) Creatinine 0.6 MG/DL (0.55-1.30) Estimat Glomerular Filtration Rate > 60 mL/min (>60) Glucose Level 88 MG/DL (74-106) Calcium Level 8.6 MG/DL (8.5-10.1) Magnesium Level 1.8 MG/DL (1.8-2.4) Urine Color Brown Urine Appearance Slightly cloudy Urine pH 8 (4.5-8.0) Urine Specific [place] 1.010 (1.005-1.035) Urine Protein 3+ (NEGATIVE) H Urine Glucose (UA) Negative (NEGATIVE) Urine Ketones Negative (NEGATIVE) Urine Occult Blood 5+ (NEGATIVE) H Urine Nitrite Positive (NEGATIVE) H Urine Bilirubin Negative (NEGATIVE) Urine Urobilinogen 8 MG/DL (0.0-1.0) H Urine Leukocyte Esterase 2+ (NEGATIVE) H Urine RBC 15-20 /HPF (0 - 0) H Urine WBC 5-10 /HPF (0 - 0) H Urine Squamous Epithelial Cells Occasional /LPF Urine Triple Phosphate Crystals Few /LPF (NONE) H Urine Bacteria Many /HPF (NONE) H Neurologic Exam Objective PHYSICAL EXAMINATION: GENERAL: This is a well-developed, well-nourished gentleman, lying in bed, in no acute distress. HEAD: Normocephalic and atraumatic. EENT: Examination benign. NECK: No neck rigidity was observed. NEUROLOGICAL EXAMINATION: MENTAL STATUS EXAMINATION: He was only responsive to deep pain with minimal eye opening and right-sided withdrawal, but no left-sided withdrawal. When aroused he said he felt "OK." Further mental status testing was impossible. SPEECH: He only said a single word - "OK". LANGUAGE: Could not be tested. CRANIAL NERVE EXAMINATION: II: He did blink to threat when aroused. III, IV & : The external ocular movements were present on oculocephalic maneuvers. The pupils were 3 mm in diameter, equal, round, regular, and reactive sluggishly to light. V & VII: The corneal reflex was diminished on the left side compared to the right side. VIII: He did respond to sounds and had no nystagmus. IX & X: The gag reflex was diminished. XI: The sternocleidomastoids and trapezii did function. XII: The tongue was in the midline. MOTOR SYSTEM: The tone was increased with spasticity and gegenhalten in all four extremities. Examination of muscle mass revealed generalized muscle wasting involving the lower extremities more than the upper extremities. Examination of power was impossible to perform on individual muscle groups. When deep painful stimuli were applied, there was robust withdrawal of the right upper and lower extremities, and minimal withdrawal of the left upper and lower extremities. SENSORY EXAMINATION: He responded only to deep pain on the right side more than the left. REFLEXES: 0 at the biceps, triceps, brachioradialis, knees, and ankles. The plantar responses were extensor bilaterally. COORDINATION, STANCE & GAIT: Could not be tested. Impression/Recommendations Diagnostic Impression 1. Mr. 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 He was hospitalized for a single breakthrough seizure [facility]. He however was given Versed following the event and following that was poorly responsive. 2. He has woken up. He has been less agitated as per his nurse. He has been seizure-free. 3. On neurological examination, at this time, he only responds to deep pain with eye opening, he only said a single word "OK" when asked how he felt, he has a diminished corneal reflex on the left side, robust withdrawal of the right upper and lower extremities, and minimal withdrawal of the left upper and lower extremities to deep pain. Globally absent deep tendon reflexes with extensor plantar responses. 4. Laboratory data thus far have revealed that he has a significant leukocytosis with a WBC count of 15,700. He is dehydrated with a hemoglobin of 17.3 and sodium elevated to 147 with a chloride of 108. His glucose is minimally elevated and his albumin is low. 5. The patient's history and neurological examination are most compatible with a breakthrough seizure most probably related to an acute infectious process in this patient who does have prior intracranial pathology and a seizure disorder. Recommendations 1. Continue present management. 2. Treatment of patient's infectious process. 3. Correction of fluid and electrolyte status. 4. Continue Keppra 1 G q 12 hours and Depakote 500 mg q12 hours. 5. Refrain from use of mind altering drugs. 6. Preferable to use physical rather than chemical restraints. Siomara Black M.D., M.S.P.H. SIOMARA BLACK Aug 19, 2017 14:14
[2017-08-19 16:00] VITALS: BP 96/55
[2017-08-19 20:00] VITALS: BP 123/72
[2017-08-19] MEDS: Atorvastatin 20mg tab ORAL SCH (22:37)
[2017-08-19] MEDS: Dyna-Hex 2% Top Sol 2oz TOPIC SCH (22:38)
--- NOTE | 2017-08-19 23:41 | Consultation ---
History of Present Illness General Chief Complaint: Seizure Present Illness Allergies: Coded Allergies: No Known Allergies (Unverified , 01/11/16) Medication History Scheduled Aspirin* (Aspirin*), 325 MG ORAL DAILY, (Reported) Atorvastatin Calcium* (Atorvastatin Calcium*), 20 MG ORAL BEDTIME, (Reported) Atorvastatin Calcium* (Lipitor*), 20 MG ORAL BEDTIME, (Reported) Divalproex Sodium (Depakote Sprinkle), 500 MG PO BID, (Reported) Docusate Sodium* (Docusate Sodium*), 250 MG ORAL DAILY, (Reported) Levetiracetam (Keppra), 10 ML ORAL DAILY, (Reported) Levetiracetam (Keppra), 15 ML ORAL QHS, (Reported) Levetiracetam (Keppra), 1,500 MG ORAL EVERY 12 HOURS Levetiracetam (Keppra), 10 ML ORAL DAILY, (Reported) Polyvinyl Alcohol (Polyvinyl Alcohol), 15 ML OP QID, (Reported) Potassium Chloride (Potassium Chloride), 20 MEQ ORAL DAILY, (Reported) Scheduled PRN Lactulose (Lactulose*), 30 ML ORAL DAILY PRN for Constipation, (Reported) Miscellaneous Medications Cyanocobalamin (Vitamin B-12) (Vitamin B-12), 100 MCG PO, (Reported) Multivitamin (Multi-Vitamin Daily), 1 EACH PO, (Reported) Patient History Healthcare decision maker Resuscitation status Full Code Advanced Directive on File No Physical Exam Last 24 Hour Vital Signs Date Time Temp Pulse Resp B/P (MAP) Pulse Ox O2 Delivery O2 Flow Rate FiO2 08/19/17 20:00 Venturi Mask 10.0 45 08/19/17 20:00 97 Venturi Mask 10.0 45 08/19/17 16:00 76 08/19/17 16:00 98.0 74 18 96/55 100 Venturi Mask 10.0 45 98.0 08/19/17 12:14 71 175/78 08/19/17 12:00 97.7 76 20 162/80 95 Venturi Mask 10.0 45 97.7 08/19/17 12:00 74 08/19/17 08:57 Venturi Mask 10.0 45 08/19/17 08:55 96 Venturi Mask 10.0 45 08/19/17 08:00 98.2 72 18 175/78 99 Venturi Mask 10.0 45 98.2 08/19/17 08:00 71 08/19/17 04:00 97.0 76 18 140/71 96 Venturi Mask 10.0 45 97.0 08/19/17 04:00 75 08/19/17 00:00 98.9 76 18 125/66 98 Venturi Mask 10.0 45 98.9 08/19/17 00:00 76 Intake and Output 08/18/17 08/19/17 19:00 07:00 Output Total 200 ml 200 ml Balance -200 ml -200 ml Output Urine Total 200 ml 200 ml Laboratory Tests Test 08/19/17 07:43 08/19/17 12:45 White Blood Count 7.3 K/UL (4.8-10.8) Red Blood Count 4.68 M/UL (4.70-6.10) L Hemoglobin 14.5 G/DL (14.2-18.0) Hematocrit 42.3 % (42.0-52.0) Mean Corpuscular Volume 90 FL (80-99) Mean Corpuscular Hemoglobin 30.9 PG (27.0-31.0) Mean Corpuscular Hemoglobin Concent 34.2 G/DL (32.0-36.0) Red Cell Distribution Width 14.0 % (11.6-14.8) Platelet Count 108 K/UL (150-450) L Mean Platelet Volume 8.4 FL (6.5-10.1) Neutrophils (%) (Auto) 63.7 % (45.0-75.0) Lymphocytes (%) (Auto) 22.4 % (20.0-45.0) Monocytes (%) (Auto) 11.7 % (1.0-10.0) H Eosinophils (%) (Auto) 1.4 % (0.0-3.0) Basophils (%) (Auto) 0.8 % (0.0-2.0) Sodium Level 144 MMOL/L (136-145) Potassium Level 3.0 MMOL/L (3.5-5.1) L Chloride Level 104 MMOL/L (98-107) Carbon Dioxide Level 33 MMOL/L (21-32) H Anion Gap 7 mmol/L (5-15) Blood Urea Nitrogen 13 mg/dL (7-18) Creatinine 0.6 MG/DL (0.55-1.30) Estimat Glomerular Filtration Rate > 60 mL/min (>60) Glucose Level 88 MG/DL (74-106) Calcium Level 8.6 MG/DL (8.5-10.1) Magnesium Level 1.8 MG/DL (1.8-2.4) Urine Color Brown Urine Appearance Slightly cloudy Urine pH 8 (4.5-8.0) Urine Specific [place] 1.010 (1.005-1.035) Urine Protein 3+ (NEGATIVE) H Urine Glucose (UA) Negative (NEGATIVE) Urine Ketones Negative (NEGATIVE) Urine Occult Blood 5+ (NEGATIVE) H Urine Nitrite Positive (NEGATIVE) H Urine Bilirubin Negative (NEGATIVE) Urine Urobilinogen 8 MG/DL (0.0-1.0) H Urine Leukocyte Esterase 2+ (NEGATIVE) H Urine RBC 15-20 /HPF (0 - 0) H Urine WBC 5-10 /HPF (0 - 0) H Urine Squamous Epithelial Cells Occasional /LPF Urine Triple Phosphate Crystals Few /LPF (NONE) H Urine Bacteria Many /HPF (NONE) H Height (Feet): 5 Height (Inches): 10.00 Weight (Pounds): 170 Medications Current Medications Medications (Trade) Dose Ordered Sig/Andra Route PRN Reason Start Time Stop Time Status Last Admin Dose Admin Acetaminophen (Tylenol) 650 mg Q4H PRN ORAL fever 08/16/17 23:30 09/15/17 23:29 Al Hydroxide/Mg Hydroxide (Mylanta II) 30 ml Q6H PRN ORAL dyspepsia 08/16/17 23:30 09/15/17 23:29 Amlodipine Besylate (Norvasc) 2.5 mg DAILY ORAL 08/19/17 11:15 09/18/17 11:14 08/19/17 12:14 Aspirin (ASA) 325 mg DAILY ORAL 08/17/17 09:00 09/16/17 08:59 08/19/17 09:48 Atorvastatin Calcium (Lipitor) 20 mg BEDTIME ORAL 08/17/17 21:00 09/16/17 20:59 08/19/17 22:37 Chlorhexidine Gluconate ([place]-Hex 2%) 1 applic DAILY@1999 TOPIC 08/17/17 20:00 09/16/17 19:59 08/19/17 22:38 Clonidine HCl (Catapres Tab) 0.1 mg EVERY 6 HOURS PRN ORAL For High Blood Pressure 08/17/17 07:15 09/16/17 07:14 08/18/17 20:29 Dextrose (Dextrose 50%) STAT PRN IV Hypoglycemia 08/16/17 23:30 09/15/17 23:29 Dextrose/ Electrolytes 1,000 ml @ 50 mls/hr Q20H IV 08/17/17 12:00 09/16/17 11:59 08/19/17 03:59 Divalproex Sodium (Depakote Sprinkles) 500 mg BID ORAL 08/17/17 09:00 09/16/17 08:59 08/19/17 17:47 Levetiracetam (Keppra) 1,000 mg DAILY ORAL 08/17/17 09:00 09/16/17 08:59 08/19/17 09:48 Lorazepam (Ativan 2mg/ml 1ml) 1 mg Q4H PRN IV For agitation 08/18/17 02:15 08/25/17 02:14 08/18/17 14:12 Lorazepam (Ativan 2mg/ml 1ml) 2 mg EVERY HOUR PRN IV seizures 08/16/17 23:30 08/23/17 23:29 Morphine Sulfate (Morphine Sulfate) 1 mg EVERY 4 HOURS PRN IVP For Pain 08/16/17 23:30 08/23/17 23:29 08/17/17 23:51 Ondansetron HCl (Zofran) 4 mg Q6H PRN IVP Nausea & Vomiting 08/16/17 23:30 09/15/17 23:29 Polyethylene Glycol (Miralax) 17 gm HSPRN PRN ORAL Constipation 08/16/17 23:30 09/15/17 23:29 Zolpidem Tartrate (Ambien) 5 mg HSPRN PRN ORAL Insomnia 08/16/17 23:30 08/23/17 23:29 08/17/17 23:50 Josefina Spencer M.D. Aug 19, 2017 23:41
[2017-08-20] VITALS: BP 144/76
[2017-08-20 04:00] VITALS: BP 126/85
[2017-08-20 08:00] VITALS: BP 157/75
--- NOTE | 2017-08-20 08:15 | Pulmonology Progress Note ---
Assessment/Plan Assessment/Plan ASSESSMENT Acute toxic metabolic encephalopathy 2 to seizure Breakthrough seizure with hx of chronic seizure disorder hx of large R MCA CVA hypokalemia hematuria probable UTI dementia with behavioral disturbances HTN PLAN OF CARE transferred to [facility] pham IVF empiric abx, fup with urine cx Seizure precautions Keppra and Depakote Ativan prn for breakthrough seizures Neuro eval appreciated DVT prophylaxis when more awake was started on diet swallow eval O2 titrate to keep pulse ox above 92% pulm toilet Home meds resumed, including ASA and statin replace lytes as needed renal parameters stable off heparin due to hematuria, but possibly due to UTI venous Duplex BLE and if negative SCD HH stable renal parameters stable psych eval monitor BP, added low dose Norvasc and Clonidine prn , stable for now DNR/DNI status case discussed and evaluated by supervising physician Subjective Allergies: Coded Allergies: No Known Allergies (Unverified , 01/11/16) Subjective still on VM no further seizures urine dark, ' UA + UTI, urine cx pending BP stable pulled out IV last night PICC opending for this am, very difficult stick Objective Last 24 Hour Vital Signs Date Time Temp Pulse Resp B/P (MAP) Pulse Ox O2 Delivery O2 Flow Rate FiO2 08/20/17 04:00 97.5 74 21 126/85 93 Venturi Mask 10.0 45 97.5 08/20/17 04:00 83 08/20/17 00:00 97.1 80 20 144/76 99 Venturi Mask 10.0 45 97.1 08/20/17 00:00 79 08/19/17 20:00 98.0 69 24 123/72 100 Venturi Mask 10.0 45 98.0 08/19/17 20:00 Venturi Mask 10.0 45 08/19/17 20:00 76 08/19/17 20:00 97 Venturi Mask 10.0 45 08/19/17 16:00 76 08/19/17 16:00 98.0 74 18 96/55 100 Venturi Mask 10.0 45 98.0 08/19/17 12:14 71 175/78 08/19/17 12:00 97.7 76 20 162/80 95 Venturi Mask 10.0 45 97.7 08/19/17 12:00 74 08/19/17 08:57 Venturi Mask 10.0 45 08/19/17 08:55 96 Venturi Mask 10.0 45 Intake and Output 08/19/17 08/20/17 19:00 07:00 Intake Total 360 ml 150 ml Output Total 250 ml 500 ml Balance 110 ml -350 ml Intake Oral 360 ml IV Total 150 ml Output Urine Total 250 ml 500 ml Objective General Appearance: no acute distress HEENT: normocephalic, atraumatic, anicteric, VM 45% Respiratory/Chest: no respiratory distress, no accessory muscle use Cardiovascular: normal rate , Abdomen: normal bowel sounds, soft, non tender, non distended Neurologic/Psychiatric: abnormal gait, alert, restless Laboratory Tests 08/19/17 12:45: Urine Color Brown, Urine Appearance Slightly cloudy, Urine pH 8, Urine Specific [place] 1.010, Urine Protein 3+H, Urine Glucose (UA) Negative, Urine Ketones Negative, Urine Occult Blood 5+H, Urine Nitrite PositiveH, Urine Bilirubin Negative, Urine Urobilinogen 8H, Urine Leukocyte Esterase 2+H, Urine RBC 15-20H , Urine WBC 5-10H, Urine Squamous Epithelial Cells Occasional, Urine Triple Phosphate Crystals FewH, Urine Bacteria ManyH Current Medications Medications (Trade) Dose Ordered Sig/Andra Route PRN Reason Start Time Stop Time Status Last Admin Dose Admin Acetaminophen (Tylenol) 650 mg Q4H PRN ORAL fever 08/16/17 23:30 09/15/17 23:29 Al Hydroxide/Mg Hydroxide (Mylanta II) 30 ml Q6H PRN ORAL dyspepsia 08/16/17 23:30 09/15/17 23:29 Amlodipine Besylate (Norvasc) 2.5 mg DAILY ORAL 08/19/17 11:15 09/18/17 11:14 08/19/17 12:14 Aspirin (ASA) 325 mg DAILY ORAL 08/17/17 09:00 09/16/17 08:59 08/19/17 09:48 Atorvastatin Calcium (Lipitor) 20 mg BEDTIME ORAL 08/17/17 21:00 09/16/17 20:59 08/19/17 22:37 Chlorhexidine Gluconate ([place]-Hex 2%) 1 applic DAILY@1999 TOPIC 08/17/17 20:00 09/16/17 19:59 08/19/17 22:38 Clonidine HCl (Catapres Tab) 0.1 mg EVERY 6 HOURS PRN ORAL For High Blood Pressure 08/17/17 07:15 09/16/17 07:14 08/18/17 20:29 Dextrose (Dextrose 50%) STAT PRN IV Hypoglycemia 08/16/17 23:30 09/15/17 23:29 Dextrose/ Electrolytes 1,000 ml @ 50 mls/hr Q20H IV 08/17/17 12:00 09/16/17 11:59 08/19/17 03:59 Divalproex Sodium (Depakote Sprinkles) 500 mg BID ORAL 08/17/17 09:00 09/16/17 08:59 08/19/17 17:47 Levetiracetam (Keppra) 1,000 mg DAILY ORAL 08/17/17 09:00 09/16/17 08:59 08/19/17 09:48 Lorazepam (Ativan 2mg/ml 1ml) 1 mg Q4H PRN IV For agitation 08/18/17 02:15 08/25/17 02:14 08/18/17 14:12 Lorazepam (Ativan 2mg/ml 1ml) 2 mg EVERY HOUR PRN IV seizures 08/16/17 23:30 08/23/17 23:29 Morphine Sulfate (Morphine Sulfate) 1 mg EVERY 4 HOURS PRN IVP For Pain 08/16/17 23:30 08/23/17 23:29 08/17/17 23:51 Ondansetron HCl (Zofran) 4 mg Q6H PRN IVP Nausea & Vomiting 08/16/17 23:30 09/15/17 23:29 Polyethylene Glycol (Miralax) 17 gm HSPRN PRN ORAL Constipation 08/16/17 23:30 09/15/17 23:29 Zolpidem Tartrate (Ambien) 5 mg HSPRN PRN ORAL Insomnia 08/16/17 23:30 08/23/17 23:29 08/17/17 23:50 Liliana Shannon NP ([facility]) Aug 20, 2017 08:15
[2017-08-20] MEDS: levETIRAcetam 500mg/5ml Liquid ORAL SCH (08:19)
[2017-08-20] MEDS: Depakote 125mg Sprinkles ORAL SCH ×2 (08:19→18:20)
[2017-08-20 09:15] LABS: BASOPHILS % (AUTO) 0.6 % (0.0-2.0); EOSINOPHILS % (AUTO) 2.2 % (0.0-3.0); HEMATOCRIT 45.3 % (42.0-52.0); HEMOGLOBIN 15.3 G/DL (14.2-18.0); LYMPHOCYTES % (AUTO) 20.8 % (20.0-45.0); MEAN CORPUSCULAR VOLUME 91 FL (80-99); MONOCYTES % (AUTO) 9.5 % (1.0-10.0); NEUTROPHILS % (AUTO) 66.8 % (45.0-75.0); PLATELET COUNT 117 K/UL (150-450); RED CELL DISTRIBUTION WIDTH 13.8 % (11.6-14.8); WHITE BLOOD COUNT 6.5 K/UL (4.8-10.8)
[2017-08-20] MEDS ORDERED: cefTRIAXone 1 GM in D5W 55 ML IVPB SCH (09:30)
[2017-08-20 09:36] LABS: ANION GAP 6 mmol/L (5-15); BLOOD UREA NITROGEN 13 mg/dL (7-18); CALCIUM 9.2 MG/DL (8.5-10.1); CARBON DIOXIDE 34 MMOL/L (21-32); CHLORIDE 105 MMOL/L (98-107); CREATININE 0.6 MG/DL (0.55-1.30); POTASSIUM 3.2 MMOL/L (3.5-5.1); SODIUM 145 MMOL/L (136-145)
[2017-08-20 12:00] VITALS: BP 149/70
--- NOTE | 2017-08-20 12:23 | Diagnostic Imaging Report ---
Indications: Needs long-term IV access Technique: Ultrasound confirms patent compressible right basilic vein. Total sterile technique, including sterile probe cover and sterile gel, hat, mask,, sterile gown, large sterile drape, and preparation with 2% chlorhexidine utilized. Local anesthesia with 1% lidocaine. Under real-time ultrasound guidance, puncture basilic vein using 21-gauge needle, documented and archived, passage 0.018 guidewire under direct fluoroscopy, which was used to determine appropriate catheter length, exchange for 5 Martiniquais peel-away sheath. 5 [place] Bard dual-lumen power PICC cut to 40 cm. It was inserted through the peel-away sheath. Peel-away sheath and guidewire removed. Catheter fixed to the skin. Both catheter ports aspirated and flushed. Patient tolerated procedure well, without immediate complication. Digital radiograph documents satisfactory catheter tip position, at the cavoatrial junction. Total fluoroscopy time 0.2 minutes. Total dose area product 4.3 dGycm2 Impression: Successful placement of right arm PICC under sonographic and fluoroscopic guidance, as described above.
--- NOTE | 2017-08-20 14:47 | Consultation ---
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 the pt was confused and has been inappropriate with staff and making sexual remarks Allergies: Coded Allergies: No Known Allergies (Unverified , 01/11/16) Medication History Scheduled Aspirin* (Aspirin*), 325 MG ORAL DAILY, (Reported) Atorvastatin Calcium* (Atorvastatin Calcium*), 20 MG ORAL BEDTIME, (Reported) Atorvastatin Calcium* (Lipitor*), 20 MG ORAL BEDTIME, (Reported) Divalproex Sodium (Depakote Sprinkle), 500 MG PO BID, (Reported) Docusate Sodium* (Docusate Sodium*), 250 MG ORAL DAILY, (Reported) Levetiracetam (Keppra), 10 ML ORAL DAILY, (Reported) Levetiracetam (Keppra), 15 ML ORAL QHS, (Reported) Levetiracetam (Keppra), 1,500 MG ORAL EVERY 12 HOURS Levetiracetam (Keppra), 10 ML ORAL DAILY, (Reported) Polyvinyl Alcohol (Polyvinyl Alcohol), 15 ML OP QID, (Reported) Potassium Chloride (Potassium Chloride), 20 MEQ ORAL DAILY, (Reported) Scheduled PRN Lactulose (Lactulose*), 30 ML ORAL DAILY PRN for Constipation, (Reported) Miscellaneous Medications Cyanocobalamin (Vitamin B-12) (Vitamin B-12), 100 MCG PO, (Reported) Multivitamin (Multi-Vitamin Daily), 1 EACH PO, (Reported) Patient History History Provided By: Patient, Medical Record, PMD Healthcare decision maker Resuscitation status Full Code Advanced Directive on File No Review of Systems Psychiatric: Reports: prior hx, anxiety, depressed feelings, emotional problems Physical Exam General Appearance: no apparent distress, alert, confused Last 24 Hour Vital Signs Date Time Temp Pulse Resp B/P (MAP) Pulse Ox O2 Delivery O2 Flow Rate FiO2 08/20/17 12:00 97.9 79 19 149/70 97 97.9 08/20/17 08:18 76 151/58 08/20/17 08:00 97.7 80 18 157/75 100 97.7 08/20/17 04:00 97.5 74 21 126/85 93 Venturi Mask 10.0 45 97.5 08/20/17 04:00 83 08/20/17 00:00 97.1 80 20 144/76 99 Venturi Mask 10.0 45 97.1 08/20/17 00:00 79 08/19/17 20:00 98.0 69 24 123/72 100 Venturi Mask 10.0 45 98.0 08/19/17 20:00 Venturi Mask 10.0 45 08/19/17 20:00 76 08/19/17 20:00 97 Venturi Mask 10.0 45 08/19/17 16:00 76 08/19/17 16:00 98.0 74 18 96/55 100 Venturi Mask 10.0 45 98.0 Intake and Output 08/19/17 08/20/17 19:00 07:00 Intake Total 360 ml 150 ml Output Total 250 ml 500 ml Balance 110 ml -350 ml Intake Oral 360 ml IV Total 150 ml Output Urine Total 250 ml 500 ml Laboratory Tests Test 08/20/17 09:05 White Blood Count 6.5 K/UL (4.8-10.8) Red Blood Count 5.00 M/UL (4.70-6.10) Hemoglobin 15.3 G/DL (14.2-18.0) Hematocrit 45.3 % (42.0-52.0) Mean Corpuscular Volume 91 FL (80-99) Mean Corpuscular Hemoglobin 30.6 PG (27.0-31.0) Mean Corpuscular Hemoglobin Concent 33.8 G/DL (32.0-36.0) Red Cell Distribution Width 13.8 % (11.6-14.8) Platelet Count 117 K/UL (150-450) L Mean Platelet Volume 7.9 FL (6.5-10.1) Neutrophils (%) (Auto) 66.8 % (45.0-75.0) Lymphocytes (%) (Auto) 20.8 % (20.0-45.0) Monocytes (%) (Auto) 9.5 % (1.0-10.0) Eosinophils (%) (Auto) 2.2 % (0.0-3.0) Basophils (%) (Auto) 0.6 % (0.0-2.0) Sodium Level 145 MMOL/L (136-145) Potassium Level 3.2 MMOL/L (3.5-5.1) L Chloride Level 105 MMOL/L (98-107) Carbon Dioxide Level 34 MMOL/L (21-32) H Anion Gap 6 mmol/L (5-15) Blood Urea Nitrogen 13 mg/dL (7-18) Creatinine 0.6 MG/DL (0.55-1.30) Estimat Glomerular Filtration Rate > 60 mL/min (>60) Glucose Level 85 MG/DL (74-106) Calcium Level 9.2 MG/DL (8.5-10.1) Height (Feet): 5 Height (Inches): 10.00 Weight (Pounds): 170 Medications Current Medications Medications (Trade) Dose Ordered Sig/Andra Route PRN Reason Start Time Stop Time Status Last Admin Dose Admin Acetaminophen (Tylenol) 650 mg Q4H PRN ORAL fever 08/16/17 23:30 09/15/17 23:29 Al Hydroxide/Mg Hydroxide (Mylanta II) 30 ml Q6H PRN ORAL dyspepsia 08/16/17 23:30 09/15/17 23:29 Amlodipine Besylate (Norvasc) 2.5 mg DAILY ORAL 08/19/17 11:15 09/18/17 11:14 08/20/17 08:18 Aspirin (ASA) 325 mg DAILY ORAL 08/17/17 09:00 09/16/17 08:59 08/20/17 08:18 Atorvastatin Calcium (Lipitor) 20 mg BEDTIME ORAL 08/17/17 21:00 09/16/17 20:59 08/19/17 22:37 Ceftriaxone Sodium 1 gm/ Dextrose 55 ml @ 110 mls/hr Q24H IVPB 08/20/17 09:30 08/27/17 09:29 08/20/17 12:21 Chlorhexidine Gluconate ([place]-Hex 2%) 1 applic DAILY@2000 TOPIC 08/17/17 20:00 09/16/17 19:59 08/19/17 22:38 Clonidine HCl (Catapres Tab) 0.1 mg EVERY 6 HOURS PRN ORAL For High Blood Pressure 08/17/17 07:15 09/16/17 07:14 08/18/17 20:29 Dextrose (Dextrose 50%) STAT PRN IV Hypoglycemia 08/16/17 23:30 09/15/17 23:29 Dextrose/ Electrolytes 1,000 ml @ 50 mls/hr Q20H IV 08/17/17 12:00 09/16/17 11:59 08/19/17 03:59 Divalproex Sodium (Depakote Sprinkles) 500 mg BID ORAL 08/17/17 09:00 09/16/17 08:59 08/20/17 08:19 Levetiracetam (Keppra) 1,000 mg DAILY ORAL 08/17/17 09:00 09/16/17 08:59 08/20/17 08:19 Lorazepam (Ativan 2mg/ml 1ml) 1 mg Q4H PRN IV For agitation 08/18/17 02:15 08/25/17 02:14 08/18/17 14:12 Lorazepam (Ativan 2mg/ml 1ml) 2 mg EVERY HOUR PRN IV seizures 08/16/17 23:30 08/23/17 23:29 Morphine Sulfate (Morphine Sulfate) 1 mg EVERY 4 HOURS PRN IVP For Pain 08/16/17 23:30 08/23/17 23:29 08/17/17 23:51 Ondansetron HCl (Zofran) 4 mg Q6H PRN IVP Nausea & Vomiting 08/16/17 23:30 09/15/17 23:29 Polyethylene Glycol (Miralax) 17 gm HSPRN PRN ORAL Constipation 08/16/17 23:30 09/15/17 23:29 Zolpidem Tartrate (Ambien) 5 mg HSPRN PRN ORAL Insomnia 08/16/17 23:30 08/23/17 23:29 08/17/17 23:50 Assessment/Plan Assessment/Plan encephalopathy behavioral issues -cont to monitor Josefina Spencer M.D. Aug 20, 2017 14:47
--- NOTE | 2017-08-20 14:48 | General Progress Note ---
Assessment/Plan Assessment/Plan encephalopathy behavioral issues -cont to monitor -depakote Subjective Date patient seen: Aug 19, 2017 Neurologic/Psychiatric: Reports: anxiety, depressed, emotional problems Allergies: Coded Allergies: No Known Allergies (Unverified , 01/11/16) Subjective the pt touched the staff rare today and was observed masturbating several times / more alert Objective Last 24 Hour Vital Signs Date Time Temp Pulse Resp B/P (MAP) Pulse Ox O2 Delivery O2 Flow Rate FiO2 08/20/17 12:00 97.9 79 19 149/70 97 97.9 08/20/17 08:18 76 151/58 08/20/17 08:00 97.7 80 18 157/75 100 97.7 08/20/17 04:00 97.5 74 21 126/85 93 Venturi Mask 10.0 45 97.5 08/20/17 04:00 83 08/20/17 00:00 97.1 80 20 144/76 99 Venturi Mask 10.0 45 97.1 08/20/17 00:00 79 08/19/17 20:00 98.0 69 24 123/72 100 Venturi Mask 10.0 45 98.0 08/19/17 20:00 Venturi Mask 10.0 45 08/19/17 20:00 76 08/19/17 20:00 97 Venturi Mask 10.0 45 08/19/17 16:00 76 08/19/17 16:00 98.0 74 18 96/55 100 Venturi Mask 10.0 45 98.0 Intake and Output 08/19/17 08/20/17 19:00 07:00 Intake Total 360 ml 150 ml Output Total 250 ml 500 ml Balance 110 ml -350 ml Intake Oral 360 ml IV Total 150 ml Output Urine Total 250 ml 500 ml Laboratory Tests 08/20/17 09:05: White Blood Count 6.5, Red Blood Count 5.00, Hemoglobin 15.3, Hematocrit 45.3, Mean Corpuscular Volume 91, Mean Corpuscular Hemoglobin 30.6, Mean Corpuscular Hemoglobin Concent 33.8, Red Cell Distribution Width 13.8, Platelet Count 117L, Mean Platelet Volume 7.9, Neutrophils (%) (Auto) 66.8, Lymphocytes (%) (Auto) 20.8, Monocytes (%) (Auto) 9.5, Eosinophils (%) (Auto) 2.2, Basophils (%) (Auto ) 0.6, Sodium Level 145, Potassium Level 3.2L, Chloride Level 105, Carbon Dioxide Level 34H, Anion Gap 6, Blood Urea Nitrogen 13, Creatinine 0.6, Estimat Glomerular Filtration Rate > 60, Glucose Level 85, Calcium Level 9.2 Height (Feet): 5 Height (Inches): 10.00 Weight (Pounds): 170 General Appearance: no apparent distress, alert, confused Josefina Spencer M.D. Aug 20, 2017 14:48
--- NOTE | 2017-08-20 14:50 | General Progress Note ---
Assessment/Plan Assessment/Plan encephalopathy behavioral issues bipolar d/o? -cont to monitor -Depakote Subjective Date patient seen: Aug 20, 2017 Neurologic/Psychiatric: Reports: anxiety, depressed, emotional problems Allergies: Coded Allergies: No Known Allergies (Unverified , 01/11/16) Subjective the pt observed masturbating several times/ more alert Objective Last 24 Hour Vital Signs Date Time Temp Pulse Resp B/P (MAP) Pulse Ox O2 Delivery O2 Flow Rate FiO2 08/20/17 12:00 97.9 79 19 149/70 97 97.9 08/20/17 08:18 76 151/58 08/20/17 08:00 97.7 80 18 157/75 100 97.7 08/20/17 04:00 97.5 74 21 126/85 93 Venturi Mask 10.0 45 97.5 08/20/17 04:00 83 08/20/17 00:00 97.1 80 20 144/76 99 Venturi Mask 10.0 45 97.1 08/20/17 00:00 79 08/19/17 20:00 98.0 69 24 123/72 100 Venturi Mask 10.0 45 98.0 08/19/17 20:00 Venturi Mask 10.0 45 08/19/17 20:00 76 08/19/17 20:00 97 Venturi Mask 10.0 45 08/19/17 16:00 76 08/19/17 16:00 98.0 74 18 96/55 100 Venturi Mask 10.0 45 98.0 Intake and Output 08/19/17 08/20/17 19:00 07:00 Intake Total 360 ml 150 ml Output Total 250 ml 500 ml Balance 110 ml -350 ml Intake Oral 360 ml IV Total 150 ml Output Urine Total 250 ml 500 ml Laboratory Tests 08/20/17 09:05: White Blood Count 6.5, Red Blood Count 5.00, Hemoglobin 15.3, Hematocrit 45.3, Mean Corpuscular Volume 91, Mean Corpuscular Hemoglobin 30.6, Mean Corpuscular Hemoglobin Concent 33.8, Red Cell Distribution Width 13.8, Platelet Count 117L, Mean Platelet Volume 7.9, Neutrophils (%) (Auto) 66.8, Lymphocytes (%) (Auto) 20.8, Monocytes (%) (Auto) 9.5, Eosinophils (%) (Auto) 2.2, Basophils (%) (Auto ) 0.6, Sodium Level 145, Potassium Level 3.2L, Chloride Level 105, Carbon Dioxide Level 34H, Anion Gap 6, Blood Urea Nitrogen 13, Creatinine 0.6, Estimat Glomerular Filtration Rate > 60, Glucose Level 85, Calcium Level 9.2 Height (Feet): 5 Height (Inches): 10.00 Weight (Pounds): 170 General Appearance: no apparent distress, alert, agitated Josefina Spencer M.D. Aug 20, 2017 14:50
[2017-08-20] MEDS ORDERED: KEPPRA LIQ100 MG/1 M ORAL (14:51)
[2017-08-20 16:00] VITALS: BP 147/80
[2017-08-20] MEDS: D5W w/KCl 20mEq 1,000 ML IV SCH ×3 (18:54→20:18)
--- NOTE | 2017-08-20 19:30 | Cardiology Report ---
APPROVED REPORT EKG Measurement Heart [id number] ID [id number] Sinus tachycardia with frequent premature ventricular complexes Left ventricular hypertrophy with repolarization abnormality Abnormal ECG
[2017-08-20] MEDS ORDERED: Mylanta II UD 30ml ORAL PRN (19:31)
[2017-08-20] MEDS ORDERED: Zolpidem 5mg tab ORAL PRN (19:33)
[2017-08-20] MEDS ORDERED: Morphine Sulfate 2mg/ml Inj IVP PRN (19:33)
[2017-08-20] MEDS ORDERED: Miralax 17gm pkt ORAL PRN (19:33)
[2017-08-20] MEDS ORDERED: LORazepam Inj 2mg/ml 1ml IV PRN ×2 (19:34→20:00)
[2017-08-20 20:00] VITALS: BP 165/91
[2017-08-20] MEDS: Atorvastatin 20mg tab ORAL SCH (20:14)
[2017-08-20] MEDS: Dyna-Hex 2% Top Sol 2oz TOPIC SCH (20:14)
[2017-08-21] VITALS (7 sets, daily range): BP systolic 126–184; BP diastolic 63–100
--- NOTE | 2017-08-21 07:42 | Pulmonology Progress Note ---
Assessment/Plan Assessment/Plan ASSESSMENT Acute toxic metabolic encephalopathy 2 to seizure Breakthrough seizure with hx of chronic seizure disorder hx of large R MCA CVA hypokalemia hematuria UTI with Proteus dementia with behavioral disturbances HTN PLAN OF CARE [place] floor gentle IVF empiric abx, fup with urine cx Seizure precautions Keppra and Depakote Ativan prn for breakthrough seizures Neuro eval appreciated DVT prophylaxis when more awake was started on diet swallow eval noted diet as per ST recs with asp precautions O2 titrate to keep pulse ox above 92% pulm toilet Home meds resumed, including ASA and statin replace lytes as needed ( today replace K, check Mg) renal parameters stable off heparin due to hematuria, but possibly due to UTI venous Duplex BLE and if negative SCD HH stable renal parameters stable urine cx + Proteus, abx fup with urine cx psych eval monitor BP, increase dose of Norvasc , continue Clonidine prn , DNR/DNI status dc to SNF today addendum: at 1240 got a call from nurse-[id number], coughing urine cx + Proteus , on Ceftriaxone will order blood cx, antipyretic CXR , pulm toielt , ID consult labs for am case discussed and evaluated by supervising physician Subjective Allergies: Coded Allergies: No Known Allergies (Unverified , 01/11/16) Subjective on O2 via NC, pulse ox stable, no resp distress no further seizures urine dark, UA + UTI, urine cx + GNB, on abx BP elevated K-2.7 Objective Last 24 Hour Vital Signs Date Time Temp Pulse Resp B/P (MAP) Pulse Ox O2 Delivery O2 Flow Rate FiO2 08/21/17 06:00 132/73 08/21/17 05:07 184/98 08/21/17 04:00 97.9 111 21 184/98 93 97.9 08/21/17 04:00 184/98 08/21/17 00:00 98.1 114 18 176/100 95 98.1 08/20/17 20:00 99.1 108 20 165/91 93 99.1 08/20/17 20:00 87 08/20/17 16:00 87 08/20/17 16:00 97.5 85 18 147/80 94 Room Air 97.5 08/20/17 12:00 97.9 79 19 149/70 97 97.9 08/20/17 12:00 84 08/20/17 08:18 76 151/58 08/20/17 08:00 97.7 80 18 157/75 100 97.7 08/20/17 08:00 77 Intake and Output 08/20/17 08/21/17 19:00 07:00 Intake Total 295 ml Output Total 700 ml 500 ml Balance -405 ml -500 ml Intake Oral 240 ml IV Total 55 ml Output Urine Total 700 ml 500 ml Objective General Appearance: no acute distress; O2 via NC Respiratory/Chest: no respiratory distress, no accessory muscle use Cardiovascular: normal rate , RUE PICC intact Abdomen: normal bowel sounds, soft, non tender, non distended Neurologic/Psychiatric: abnormal gait, alert, restless Microbiology Date/Time Source Procedure Growth Status 08/19/17 12:45 Urine,Clean Catch Urine Culture - Preliminary Gram Negative Bacillus 1 Resulted Laboratory Tests 08/20/17 09:05: White Blood Count 6.5, Red Blood Count 5.00, Hemoglobin 15.3, Hematocrit 45.3, Mean Corpuscular Volume 91, Mean Corpuscular Hemoglobin 30.6, Mean Corpuscular Hemoglobin Concent 33.8, Red Cell Distribution Width 13.8, Platelet Count 117L, Mean Platelet Volume 7.9, Neutrophils (%) (Auto) 66.8, Lymphocytes (%) (Auto) 20.8, Monocytes (%) (Auto) 9.5, Eosinophils (%) (Auto) 2.2, Basophils (%) (Auto ) 0.6, Sodium Level 145, Potassium Level 3.2L, Chloride Level 105, Carbon Dioxide Level 34H, Anion Gap 6, Blood Urea Nitrogen 13, Creatinine 0.6, Estimat Glomerular Filtration Rate > 60, Glucose Level 85, Calcium Level 9.2 Current Medications Medications (Trade) Dose Ordered Sig/Andra Route PRN Reason Start Time Stop Time Status Last Admin Dose Admin Acetaminophen (Tylenol) 650 mg Q4H PRN ORAL fever 08/20/17 19:30 09/15/17 23:29 Al Hydroxide/Mg Hydroxide (Mylanta II) 30 ml Q6H PRN ORAL dyspepsia 08/20/17 19:31 09/15/17 19:30 Amlodipine Besylate (Norvasc) 2.5 mg DAILY ORAL 08/21/17 09:00 09/18/17 11:14 Aspirin (ASA) 325 mg DAILY ORAL 08/21/17 09:00 09/16/17 08:59 Atorvastatin Calcium (Lipitor) 20 mg BEDTIME ORAL 08/20/17 21:00 09/16/17 20:59 08/20/17 20:14 Ceftriaxone Sodium 1 gm/ Dextrose 55 ml @ 110 mls/hr Q24H IVPB 08/21/17 09:30 08/27/17 09:29 Chlorhexidine Gluconate (Ivania-Hex 2%) 1 applic DAILY@2000 TOPIC 08/20/17 20:00 09/16/17 19:59 08/20/17 20:14 Clonidine HCl (Catapres Tab) 0.1 mg EVERY 6 HOURS PRN ORAL For High Blood Pressure 08/20/17 19:32 09/19/17 19:31 08/21/17 05:07 Dextrose (Dextrose 50%) STAT PRN IV Hypoglycemia 08/20/17 19:32 09/15/17 19:31 Dextrose/ Electrolytes 1,000 ml @ 50 mls/hr Q20H IV 08/20/17 19:15 09/16/17 11:59 08/20/17 20:18 Divalproex Sodium (Depakote Sprinkles) 500 mg Q12HR ORAL 08/21/17 09:00 09/20/17 08:59 Levetiracetam (Keppra) 1,000 mg DAILY ORAL 08/21/17 09:00 09/16/17 08:59 Lorazepam (Ativan 2mg/ml 1ml) 1 mg Q4H PRN IV For agitation 08/20/17 19:34 08/25/17 19:33 Lorazepam (Ativan 2mg/ml 1ml) 2 mg EVERY HOUR PRN IV seizures 08/20/17 20:00 08/23/17 23:29 Morphine Sulfate (Morphine Sulfate) 1 mg EVERY 4 HOURS PRN IVP For Pain 08/20/17 19:33 08/23/17 19:32 Ondansetron HCl (Zofran) 4 mg Q6H PRN IVP Nausea & Vomiting 08/20/17 19:33 09/15/17 19:32 Polyethylene Glycol (Miralax) 17 gm HSPRN PRN ORAL Constipation 08/20/17 19:33 09/15/17 19:32 Zolpidem Tartrate (Ambien) 5 mg HSPRN PRN ORAL Insomnia 08/20/17 19:33 08/23/17 19:32 Shiva ([facility])Liliana NP Aug 21, 2017 07:42
[2017-08-21 08:44] LABS: BASOPHILS % (AUTO) 0.4 % (0.0-2.0); EOSINOPHILS % (AUTO) 1.4 % (0.0-3.0); HEMOGLOBIN 14.5 G/DL (14.2-18.0); LYMPHOCYTES % (AUTO) 16.9 % (20.0-45.0); MEAN CORPUSCULAR VOLUME 91 FL (80-99); MONOCYTES % (AUTO) 11.2 % (1.0-10.0); NEUTROPHILS % (AUTO) 70.2 % (45.0-75.0); PLATELET COUNT 122 K/UL (150-450); RED BLOOD COUNT 4.74 M/UL (4.70-6.10); RED CELL DISTRIBUTION WIDTH 13.7 % (11.6-14.8); WHITE BLOOD COUNT 6.4 K/UL (4.8-10.8)
[2017-08-21 08:58] LABS: ANION GAP 6 mmol/L (5-15); BLOOD UREA NITROGEN 10 mg/dL (7-18); CALCIUM 8.8 MG/DL (8.5-10.1); CARBON DIOXIDE 34 MMOL/L (21-32); CHLORIDE 105 MMOL/L (98-107); CREATININE 0.5 MG/DL (0.55-1.30); SODIUM 145 MMOL/L (136-145)
[2017-08-21 09:00] LABS: POTASSIUM 2.7 MMOL/L (3.5-5.1)
[2017-08-21] MEDS ORDERED: Depakote 125mg Sprinkles ORAL SCH (09:00)
[2017-08-21] MEDS ORDERED: LORazepam Inj 2mg/ml 1ml IV PRN (09:15)
[2017-08-21] MEDS ORDERED: NORVASC5 MG ORAL (09:22)
[2017-08-21] MEDS ORDERED: cefTRIAXone 1 GM in D5W 55 ML IVPB SCH (09:30)
[2017-08-21] MEDS: Depakote 125mg Sprinkles ORAL SCH ×2 (09:41→21:14)
[2017-08-21] MEDS: levETIRAcetam 500mg/5ml Liquid ORAL SCH (09:42)
--- NOTE | 2017-08-21 12:34 | General Progress Note ---
Assessment/Plan Status: stable, progressing Assessment/Plan encephalopathy behavioral issues bipolar d/o? -cont to monitor -Depakote Subjective Date patient seen: Aug 21, 2017 Neurologic/Psychiatric: Reports: anxiety, emotional problems Allergies: Coded Allergies: No Known Allergies (Unverified , 01/11/16) Subjective the pt was agitated and became combative yesterday Objective Last 24 Hour Vital Signs Date Time Temp Pulse Resp B/P (MAP) Pulse Ox O2 Delivery O2 Flow Rate FiO2 08/21/17 12:08 102.1 08/21/17 09:00 96 142/86 08/21/17 08:00 99.6 96 16 142/86 95 99.6 08/21/17 07:20 97 Venturi Mask 10.0 45 08/21/17 07:20 Venturi Mask 10.0 45 08/21/17 06:00 132/73 08/21/17 05:07 184/98 08/21/17 04:00 97.9 111 21 184/98 93 97.9 08/21/17 04:00 184/98 08/21/17 00:00 98.1 114 18 176/100 95 98.1 08/20/17 20:00 99.1 108 20 165/91 93 99.1 08/20/17 20:00 87 08/20/17 16:00 87 08/20/17 16:00 97.5 85 18 147/80 94 Room Air 97.5 Intake and Output 08/20/17 08/21/17 19:00 07:00 Intake Total 295 ml 50 ml Output Total 700 ml 500 ml Balance -405 ml -450 ml Intake Oral 240 ml IV Total 55 ml 50 ml Output Urine Total 700 ml 500 ml Laboratory Tests 08/21/17 06:50: White Blood Count 6.4, Red Blood Count 4.74, Hemoglobin 14.5, Hematocrit 43.0, Mean Corpuscular Volume 91, Mean Corpuscular Hemoglobin 30.5, Mean Corpuscular Hemoglobin Concent 33.6, Red Cell Distribution Width 13.7, Platelet Count 122L, Mean Platelet Volume 8.0, Neutrophils (%) (Auto) 70.2, Lymphocytes (%) (Auto) 16.9L, Monocytes (%) (Auto) 11.2H, Eosinophils (%) (Auto) 1.4, Basophils (%) ( Auto) 0.4, Sodium Level 145, Potassium Level 2.7*L, Chloride Level 105, Carbon Dioxide Level 34H, Anion Gap 6, Blood Urea Nitrogen 10, Creatinine 0.5L, Estimat Glomerular Filtration Rate > 60, Glucose Level 101, Calcium Level 8.8, Magnesium Level 1.8 Height (Feet): 5 Height (Inches): 10.00 Weight (Pounds): 170 General Appearance: no apparent distress, alert, confused Josefina Spencer M.D. Aug 21, 2017 12:34
[2017-08-21] MEDS ORDERED: ROCEPHIN 11 GM/50 ML IVPB (12:47)
[2017-08-21] MEDS ORDERED: Fleet's Enema 133ml RECTAL ONE (13:30)
[2017-08-21] MEDS ORDERED: Albuterol/Ipratropium 3ml neb HHN PRN (13:30)
--- NOTE | 2017-08-21 13:33 | Consultation ---
History of Present Illness General Date patient seen: Aug 21, 2017 Time patient seen: 13:20 Chief Complaint: Seizure Present Illness HPI 66 y/o M with hx of Large R MCA stroke, seizure disorder, CAD, HLD, HTN, schizoaffective disorder, [place] resident presents to ED on 08/16 after witnessed generalized tonic-clonic seizure. Given Versed by EMS. Seen by neuro. no further seizure episodes in the hospital. Was about to be discharged but had fever episode today up to 102.1. Ucx with ESBl Proteus. No leukocytosis. CXR neg. Allergies: Coded Allergies: No Known Allergies (Unverified , 01/11/16) Medication History Scheduled Aspirin* (Aspirin*), 325 MG ORAL DAILY, (Reported) Atorvastatin Calcium* (Atorvastatin Calcium*), 20 MG ORAL BEDTIME, (Reported) Atorvastatin Calcium* (Lipitor*), 20 MG ORAL BEDTIME, (Reported) Divalproex Sodium (Depakote Sprinkle), 500 MG PO BID, (Reported) Docusate Sodium* (Docusate Sodium*), 250 MG ORAL DAILY, (Reported) Levetiracetam (Keppra), 10 ML ORAL DAILY, (Reported) Levetiracetam (Keppra), 15 ML ORAL QHS, (Reported) Levetiracetam (Keppra), 1,500 MG ORAL EVERY 12 HOURS Levetiracetam (Keppra), 10 ML ORAL DAILY, (Reported) Polyvinyl Alcohol (Polyvinyl Alcohol), 15 ML OP QID, (Reported) Potassium Chloride (Potassium Chloride), 20 MEQ ORAL DAILY, (Reported) Scheduled PRN Lactulose (Lactulose*), 30 ML ORAL DAILY PRN for Constipation, (Reported) Miscellaneous Medications Cyanocobalamin (Vitamin B-12) (Vitamin B-12), 100 MCG PO, (Reported) Multivitamin (Multi-Vitamin Daily), 1 EACH PO, (Reported) Patient History Healthcare decision maker Resuscitation status Full Code Advanced Directive on File No Patient History Narrative Pmx: as above Shx: He lives in a fdc. He is unemployed. Fhx: non contributory Review of Systems ROS Narrative unable to obtain Physical Exam Physical Exam Narrative General Appearance: no acute distress; O2 via NC Respiratory/Chest: no respiratory distress, no accessory muscle use Cardiovascular: normal rate - SR on tele , regular rhythm, RUE PICC intact Abdomen: normal bowel sounds, soft, non tender, non distended Neurologic/Psychiatric: abnormal gait, alert, restless Last 24 Hour Vital Signs Date Time Temp Pulse Resp B/P (MAP) Pulse Ox O2 Delivery O2 Flow Rate FiO2 08/21/17 13:07 99.9 08/21/17 12:08 102.1 08/21/17 12:00 102.1 102 18 149/91 98 102.1 08/21/17 09:00 96 142/86 08/21/17 08:00 99.6 96 16 142/86 95 99.6 08/21/17 07:20 97 Venturi Mask 10.0 45 08/21/17 07:20 Venturi Mask 10.0 45 08/21/17 06:00 132/73 08/21/17 05:07 184/98 08/21/17 04:00 97.9 111 21 184/98 93 97.9 08/21/17 04:00 184/98 08/21/17 00:00 98.1 114 18 176/100 95 98.1 08/20/17 20:00 99.1 108 20 165/91 93 99.1 08/20/17 20:00 87 08/20/17 16:00 87 08/20/17 16:00 97.5 85 18 147/80 94 Room Air 97.5 Intake and Output 08/20/17 08/21/17 19:00 07:00 Intake Total 295 ml 50 ml Output Total 700 ml 500 ml Balance -405 ml -450 ml Intake Oral 240 ml IV Total 55 ml 50 ml Output Urine Total 700 ml 500 ml Laboratory Tests Test 08/21/17 06:50 White Blood Count 6.4 K/UL (4.8-10.8) Red Blood Count 4.74 M/UL (4.70-6.10) Hemoglobin 14.5 G/DL (14.2-18.0) Hematocrit 43.0 % (42.0-52.0) Mean Corpuscular Volume 91 FL (80-99) Mean Corpuscular Hemoglobin 30.5 PG (27.0-31.0) Mean Corpuscular Hemoglobin Concent 33.6 G/DL (32.0-36.0) Red Cell Distribution Width 13.7 % (11.6-14.8) Platelet Count 122 K/UL (150-450) L Mean Platelet Volume 8.0 FL (6.5-10.1) Neutrophils (%) (Auto) 70.2 % (45.0-75.0) Lymphocytes (%) (Auto) 16.9 % (20.0-45.0) L Monocytes (%) (Auto) 11.2 % (1.0-10.0) H Eosinophils (%) (Auto) 1.4 % (0.0-3.0) Basophils (%) (Auto) 0.4 % (0.0-2.0) Sodium Level 145 MMOL/L (136-145) Potassium Level 2.7 MMOL/L (3.5-5.1) *L Chloride Level 105 MMOL/L (98-107) Carbon Dioxide Level 34 MMOL/L (21-32) H Anion Gap 6 mmol/L (5-15) Blood Urea Nitrogen 10 mg/dL (7-18) Creatinine 0.5 MG/DL (0.55-1.30) L Estimat Glomerular Filtration Rate > 60 mL/min (>60) Glucose Level 101 MG/DL (74-106) Calcium Level 8.8 MG/DL (8.5-10.1) Magnesium Level 1.8 MG/DL (1.8-2.4) Height (Feet): 5 Height (Inches): 10.00 Weight (Pounds): 170 Medications Current Medications Medications (Trade) Dose Ordered Sig/Andra Route PRN Reason Start Time Stop Time Status Last Admin Dose Admin Acetaminophen (Tylenol) 650 mg Q4H PRN ORAL fever 08/20/17 19:30 09/15/17 23:29 08/21/17 12:08 Al Hydroxide/Mg Hydroxide (Mylanta II) 30 ml Q6H PRN ORAL dyspepsia 08/20/17 19:31 09/15/17 19:30 Albuterol/ Ipratropium (Albuterol/ Ipratropium) 3 ml Q4H PRN HHN sob 08/21/17 13:30 08/26/17 13:29 Amlodipine Besylate (Norvasc) 5 mg DAILY ORAL 08/22/17 09:00 09/18/17 11:14 Aspirin (ASA) 325 mg DAILY ORAL 08/21/17 09:00 09/16/17 08:59 08/21/17 09:41 Atorvastatin Calcium (Lipitor) 20 mg BEDTIME ORAL 08/20/17 21:00 09/16/17 20:59 08/20/17 20:14 Chlorhexidine Gluconate (Ivania-Hex 2%) 1 applic DAILY@2000 TOPIC 08/20/17 20:00 09/16/17 19:59 08/20/17 20:14 Clonidine HCl (Catapres Tab) 0.1 mg EVERY 6 HOURS PRN ORAL For High Blood Pressure 08/20/17 19:32 09/19/17 19:31 08/21/17 05:07 Dextrose (Dextrose 50%) STAT PRN IV Hypoglycemia 08/20/17 19:32 09/15/17 19:31 Dextrose/ Electrolytes 1,000 ml @ 50 mls/hr Q20H IV 08/20/17 19:15 09/16/17 11:59 08/20/17 20:18 Divalproex Sodium (Depakote Sprinkles) 500 mg Q12HR ORAL 08/21/17 09:00 09/20/17 08:59 08/21/17 09:41 Docusate Sodium (Colace) 100 mg TWICE A DAY NG 08/21/17 18:00 09/20/17 17:59 Levetiracetam (Keppra) 1,000 mg DAILY ORAL 08/21/17 09:00 09/16/17 08:59 08/21/17 09:42 Lorazepam (Ativan 2mg/ml 1ml) 1 mg Q4H PRN IV For agitation 08/20/17 19:34 08/25/17 19:33 Lorazepam (Ativan 2mg/ml 1ml) 2 mg Q1H PRN IV seizures 08/21/17 09:15 08/28/17 09:14 Morphine Sulfate (Morphine Sulfate) 1 mg EVERY 4 HOURS PRN IVP For Pain 08/20/17 19:33 08/23/17 19:32 Ondansetron HCl (Zofran) 4 mg Q6H PRN IVP Nausea & Vomiting 08/20/17 19:33 09/15/17 19:32 Piperacillin Sod/ Tazobactam Sod 2.25 gm/Dextrose 55 ml @ 110 mls/hr EVERY 8 HOURS IV 08/21/17 14:00 08/26/17 13:59 UNV Polyethylene Glycol (Miralax) 17 gm HSPRN PRN ORAL Constipation 08/20/17 19:33 09/15/17 19:32 08/21/17 12:18 Sodium Phosphate (Fleet's Sodium Phosl Enema) 133 ml ONCE ONCE RECTAL 08/21/17 13:30 08/21/17 13:31 UNV Zolpidem Tartrate (Ambien) 5 mg HSPRN PRN ORAL Insomnia 08/21/17 21:00 08/24/17 20:59 Assessment/Plan Assessment/Plan Abx: Ceftriaxone x1 08/20 Zosyn 08/21- Assessment: Fever- likely 2ry to ESBL UTI- r/o bacteremia -08/19 u/a wbc 5-10, nit +, leuk +2; ucx >100K P. mirabilis, ESBL (S Genta, Zosyn, Bactrim, Ertapenem) -Bcx 08/21 -CXr 08/16 no acute disease -no leukocytosis Seizure disorder with seizure episode upon admission Large R MCA stroke CAD HLD HTN schizoaffective disorder [place] resident NKDA DNR Plan: -Continue Zosyn #1/7 for ESBL UTI (specimen sensitive) -monitor closely, if decompensation, switch to Ertapenem -2 sets Bcx, CXR, u/a w/ , influenza sc -f/u cx -Monitor CBC/BMP, temperatures -aspiration precautions Thank you for this consultation. Will continue to follow along with you. Discussed with Rhona Vegas M.D. Aug 21, 2017 13:33
[2017-08-21] MEDS ORDERED: Piperacillin/Tazobactam 2.25 GM in D5W 55 ML IV SCH (14:00)
[2017-08-21] MEDS ORDERED: Zosyn 3.375gm q8h **Extended infusion IVPB SCH ×2 (14:30)
[2017-08-21] MEDS: D5W w/KCl 20mEq 1,000 ML IV SCH (15:41)
[2017-08-21] MEDS: Piperacillin/Tazobactam 3.375 GM in D5W 110 ML IVPB SCH ×2 (15:42→21:14)
--- NOTE | 2017-08-21 16:31 | Diagnostic Imaging Report ---
Indication: Shortness of breath Technique: One view of the chest Comparison: 08/16/2017 Findings: Patient is rotated to the left. Interim placement of right arm PICC. Inspiration is suboptimal, with basilar atelectatic changes, particularly on the right. The lungs and pleural spaces are otherwise clear. The heart is upper limits of normal in size. Evidence of prior CABG. Right basilar atelectasis is new since prior study, findings are otherwise unchanged Impression: Right basilar atelectasis No acute process otherwise PICC
[2017-08-21] MEDS: Docusate 100mg/10ml Liq NG SCH (18:36)
[2017-08-21] MEDS ORDERED: Zolpidem 5mg tab ORAL PRN (21:00)
[2017-08-21] MEDS: Atorvastatin 20mg tab ORAL SCH (21:15)
[2017-08-21] MEDS: Dyna-Hex 2% Top Sol 2oz TOPIC SCH (21:15)
[2017-08-22 02:02] LABS: BILIRUBIN, URINE 1+ (NEGATIVE); GLUCOSE, URINE (UA) NEGATIVE (NEGATIVE); KETONES,URINE NEGATIVE (NEGATIVE); LEUKOCYTE ESTERASE ,URINE 1+ (NEGATIVE); NITRITE,URINE NEGATIVE (NEGATIVE); PH,URINE 6.5 (4.5-8.0); PROTEIN,URINE 2+ (NEGATIVE); UROBILINOGEN,URINE 12 MG/DL (0.0-1.0)
[2017-08-22 02:17] LABS: APPEARANCE,URINE SLIGHTLY CLOUDY; COLOR,URINE AMBER
[2017-08-22 04:00] VITALS: BP 171/89
[2017-08-22 07:02] LABS: ANION GAP 4 mmol/L (5-15); BLOOD UREA NITROGEN 6 mg/dL (7-18); CALCIUM 8.4 MG/DL (8.5-10.1); CARBON DIOXIDE 35 MMOL/L (21-32); CHLORIDE 101 MMOL/L (98-107); CREATININE 0.6 MG/DL (0.55-1.30); SODIUM 139 MMOL/L (136-145)
[2017-08-22 07:05] LABS: POTASSIUM 2.7 MMOL/L (3.5-5.1)
[2017-08-22] MEDS: Piperacillin/Tazobactam 3.375 GM in D5W 110 ML IVPB SCH ×3 (07:10→21:36)
[2017-08-22 07:16] LABS: BASOPHILS % (AUTO) 0.8 % (0.0-2.0); EOSINOPHILS % (AUTO) 2.1 % (0.0-3.0); HEMATOCRIT 40.9 % (42.0-52.0); HEMOGLOBIN 13.8 G/DL (14.2-18.0); LYMPHOCYTES % (AUTO) 18.3 % (20.0-45.0); MEAN CORPUSCULAR VOLUME 90 FL (80-99); MONOCYTES % (AUTO) 12.2 % (1.0-10.0); NEUTROPHILS % (AUTO) 66.6 % (45.0-75.0); PLATELET COUNT 103 K/UL (150-450); RED BLOOD COUNT 4.56 M/UL (4.70-6.10); WHITE BLOOD COUNT 6.7 K/UL (4.8-10.8)
[2017-08-22 08:00] VITALS: BP 154/74
[2017-08-22] MEDS: Depakote 125mg Sprinkles ORAL SCH ×2 (09:12→21:35)
[2017-08-22] MEDS: Docusate 100mg/10ml Liq NG SCH ×2 (09:12→18:00)
[2017-08-22] MEDS: levETIRAcetam 500mg/5ml Liquid ORAL SCH (09:13)
[2017-08-22] MEDS ORDERED: Potassium Chloride 40 MEQ in Sodium Chloride 500ML 550 ML IVPB ONE (09:30)
--- NOTE | 2017-08-22 10:22 | Pulmonology Progress Note ---
Assessment/Plan Assessment/Plan ASSESSMENT Acute toxic metabolic encephalopathy 2 to seizure Breakthrough seizure with hx of chronic seizure disorder hx of large R MCA CVA hypokalemia hematuria UTI with Proteus fevers dementia with behavioral disturbances HTN encephalopathy possible bipolar disorder PLAN OF CARE MS gentle IVF urine cx + Proteus, abx ID follows blood cx, influenza screen -pending CXR 08/21 - R base atelectasis, no acute process Seizure precautions Keppra and Depakote Ativan prn for breakthrough seizures Neuro eval appreciated DVT prophylaxis when more awake was started on diet swallow eval noted diet as per ST recs with asp precautions O2 titrate to keep pulse ox above 92% pulm toilet Home meds resumed, including ASA and statin replace lytes as needed ( today replace K, stable Mg) renal parameters stable off heparin due to hematuria, but possibly due to UTI venous Duplex BLE and if negative SCD HH stable renal parameters stable psych eval appreciated monitor BP, increase dose of Norvasc , continue Clonidine prn , DNR/DNI status case discussed and evaluated by supervising physician Subjective Allergies: Coded Allergies: No Known Allergies (Unverified , 01/11/16) Subjective discharge canceled 08/21 due to fever low grade fever at night, currently afebrile, no leukocytosis ID seen and evaluated on O2 via NC, pulse ox stable, no resp distress no further seizures K-2.7 Objective Last 24 Hour Vital Signs Date Time Temp Pulse Resp B/P (MAP) Pulse Ox O2 Delivery O2 Flow Rate FiO2 08/22/17 09:12 102 154/74 08/22/17 08:00 98.2 102 20 154/74 95 98.2 08/22/17 07:24 95 Room Air 21 08/22/17 07:24 Room Air 08/22/17 04:00 100.0 113 20 171/89 95 100.0 08/22/17 03:47 171/89 08/21/17 20:31 Room Air 21 08/21/17 20:06 96 Room Air 21 08/21/17 20:00 98.3 108 20 150/94 94 98.3 08/21/17 15:52 98.0 95 20 126/63 95 Room Air 98.0 08/21/17 13:07 99.9 08/21/17 12:08 102.1 08/21/17 12:00 102.1 102 18 149/91 98 102.1 Intake and Output 08/21/17 08/22/17 19:00 07:00 Intake Total 967.5 ml 27.5 ml Output Total 600 ml 600 ml Balance 367.5 ml -572.5 ml Intake Oral 480 ml IV Total 487.5 ml 27.5 ml Output Urine Total 600 ml 600 ml Objective General Appearance: no acute distress; O2 via NC Respiratory/Chest: no respiratory distress, no accessory muscle use Cardiovascular: normal rate , regular , RUE PICC intact Abdomen: normal bowel sounds, soft, non tender, non distended Neurologic/Psychiatric: abnormal gait, alert, restless Microbiology Date/Time Source Procedure Growth Status 08/19/17 12:45 Urine,Clean Catch Urine Culture - Final Proteus Mirabilis Complete Laboratory Tests 08/21/17 22:30: Urine Color Tammi, Urine Appearance Slightly cloudy, Urine pH 6.5, Urine Specific Bayard 1.015, Urine Protein 2+H, Urine Glucose (UA) Negative, Urine Ketones Negative, Urine Occult Blood 5+H, Urine Nitrite Negative, Urine Bilirubin 1+H, Urine Ictotest Negative, Urine Urobilinogen 12H, Urine Leukocyte Esterase 1+H, Urine RBC TntcH, Urine WBC 2-4, Urine Squamous Epithelial Cells Few, Urine Bacteria Few, Urine Mucus ModerateH 08/22/17 06:20: White Blood Count 6.7, Red Blood Count 4.56L, Hemoglobin 13.8L, Hematocrit 40.9L , Mean Corpuscular Volume 90, Mean Corpuscular Hemoglobin 30.2, Mean Corpuscular Hemoglobin Concent 33.7, Red Cell Distribution Width 14.0, Platelet Count 103L, Mean Platelet Volume 7.6, Neutrophils (%) (Auto) 66.6, Lymphocytes ( %) (Auto) 18.3L, Monocytes (%) (Auto) 12.2H, Eosinophils (%) (Auto) 2.1, Basophils (%) (Auto) 0.8, Sodium Level 139, Potassium Level 2.7*L, Chloride Level 101, Carbon Dioxide Level 35H, Anion Gap 4L, Blood Urea Nitrogen 6L, Creatinine 0.6, Estimat Glomerular Filtration Rate > 60, Glucose Level 110H, Calcium Level 8.4L Current Medications Medications (Trade) Dose Ordered Sig/Andra Route PRN Reason Start Time Stop Time Status Last Admin Dose Admin Acetaminophen (Tylenol) 650 mg Q4H PRN ORAL fever 08/20/17 19:30 09/15/17 23:29 08/21/17 12:08 Al Hydroxide/Mg Hydroxide (Mylanta II) 30 ml Q6H PRN ORAL dyspepsia 08/20/17 19:31 09/15/17 19:30 Albuterol/ Ipratropium (Albuterol/ Ipratropium) 3 ml Q4H PRN HHN sob 08/21/17 13:30 08/26/17 13:29 Amlodipine Besylate (Norvasc) 5 mg DAILY ORAL 08/22/17 09:00 09/18/17 11:14 08/22/17 09:12 Aspirin (ASA) 325 mg DAILY ORAL 08/21/17 09:00 09/16/17 08:59 08/22/17 09:12 Atorvastatin Calcium (Lipitor) 20 mg BEDTIME ORAL 08/20/17 21:00 09/16/17 20:59 08/21/17 21:15 Chlorhexidine Gluconate ([place]-Hex 2%) 1 applic DAILY@2000 TOPIC 08/20/17 20:00 09/16/17 19:59 08/21/17 21:15 Clonidine HCl (Catapres Tab) 0.1 mg EVERY 6 HOURS PRN ORAL For High Blood Pressure 08/20/17 19:32 09/19/17 19:31 08/22/17 03:47 Dextrose (Dextrose 50%) STAT PRN IV Hypoglycemia 08/20/17 19:32 09/15/17 19:31 Dextrose/ Electrolytes 1,000 ml @ 50 mls/hr Q20H IV 08/20/17 19:15 09/16/17 11:59 08/21/17 15:41 Divalproex Sodium (Depakote Sprinkles) 500 mg Q12HR ORAL 08/21/17 09:00 09/20/17 08:59 08/22/17 09:12 Docusate Sodium (Colace) 100 mg TWICE A DAY NG 08/21/17 18:00 09/20/17 17:59 08/22/17 09:12 Levetiracetam (Keppra) 1,000 mg DAILY ORAL 08/21/17 09:00 09/16/17 08:59 08/22/17 09:13 Lorazepam (Ativan 2mg/ml 1ml) 1 mg Q4H PRN IV For agitation 08/20/17 19:34 08/25/17 19:33 Lorazepam (Ativan 2mg/ml 1ml) 2 mg Q1H PRN IV seizures 08/21/17 09:15 08/28/17 09:14 Morphine Sulfate (Morphine Sulfate) 1 mg EVERY 4 HOURS PRN IVP For Pain 08/20/17 19:33 08/23/17 19:32 Ondansetron HCl (Zofran) 4 mg Q6H PRN IVP Nausea & Vomiting 08/20/17 19:33 09/15/17 19:32 Piperacillin Sod/ Tazobactam Sod 3.375 gm/Dextrose 110 ml @ 27.5 mls/hr EVERY 8 HOURS IVPB 08/21/17 14:00 08/28/17 13:59 08/22/17 07:10 Polyethylene Glycol (Miralax) 17 gm HSPRN PRN ORAL Constipation 08/20/17 19:33 09/15/17 19:32 08/21/17 12:18 Potassium Chloride 40 meq/ Sodium Chloride 570 ml @ 142.5 mls/ hr ONCE ONCE IVPB 08/22/17 09:30 08/22/17 13:29 08/22/17 10:07 Zolpidem Tartrate (Ambien) 5 mg HSPRN PRN ORAL Insomnia 08/21/17 21:00 08/24/17 20:59 Shiva NanceLiliana viveros NP Aug 22, 2017 10:22
[2017-08-22] MEDS: D5W w/KCl 20mEq 1,000 ML IV SCH (11:15)
[2017-08-22 12:00] VITALS: BP 135/81
--- NOTE | 2017-08-22 13:16 | Infectious Diseases Prog Note ---
Assessment/Plan Assessment/Plan Abx: Ceftriaxone x1 08/20 Zosyn 08/21- Assessment: Fever, improving- likely 2ry to ESBL UTI- r/o bacteremia -08/19 u/a wbc 5-10, nit +, leuk +2; ucx >100K P. mirabilis, ESBL (S Genta, Zosyn, Bactrim, Ertapenem); repeat u/a 08/21 wbc tntc, nit-, leuk +1; ucx p -Bcx 08/21 p -CXr 08/21: Right basilar atelectasis. No acute process otherwise. PICC -CXr 08/16 no acute disease -no leukocytosis Seizure disorder with seizure episode upon admission Large R MCA stroke CAD HLD HTN schizoaffective disorder [place] resident NKDA DNR Plan: -Continue Zosyn #2/7 to Ertapenem for ESBL UTI (regimen to continue upon discharge as once a day dosing) -08/20 SP Ceftriaxone x1 -f/u repeat 2 sets Bcx, ucx, influenza sc -f/u cx -Monitor CBC/BMP, temperatures -aspiration precautions Thank you for this consultation. Will continue to follow along with you. Discussed with RN. Subjective Allergies: Coded Allergies: No Known Allergies (Unverified , 01/11/16) Subjective Tm 100 no leukocytosis Bcx p Objective Vital Signs Last 24 Hour Vital Signs Date Time Temp Pulse Resp B/P (MAP) Pulse Ox O2 Delivery O2 Flow Rate FiO2 08/22/17 12:00 98.6 104 20 135/81 91 98.6 08/22/17 09:12 102 154/74 08/22/17 08:00 98.2 102 20 154/74 95 98.2 08/22/17 07:24 95 Room Air 21 08/22/17 07:24 Room Air 08/22/17 04:00 100.0 113 20 171/89 95 100.0 08/22/17 03:47 171/89 08/21/17 20:31 Room Air 21 08/21/17 20:06 96 Room Air 21 08/21/17 20:00 98.3 108 20 150/94 94 98.3 08/21/17 15:52 98.0 95 20 126/63 95 Room Air 98.0 Height (Feet): 5 Height (Inches): 10.00 Weight (Pounds): 170 Objective General Appearance: no acute distress; O2 via NC Respiratory/Chest: no respiratory distress, no accessory muscle use Cardiovascular: normal rate - SR on tele , regular rhythm, RUE PICC intact Abdomen: normal bowel sounds, soft, non tender, non distended Neurologic/Psychiatric: abnormal gait, alert, restless Laboratory Tests Test 08/21/17 22:30 08/22/17 06:20 Urine Color Tammi Urine Appearance Slightly cloudy Urine pH 6.5 (4.5-8.0) Urine Specific [place] 1.015 (1.005-1.035) Urine Protein 2+ (NEGATIVE) H Urine Glucose (UA) Negative (NEGATIVE) Urine Ketones Negative (NEGATIVE) Urine Occult Blood 5+ (NEGATIVE) H Urine Nitrite Negative (NEGATIVE) Urine Bilirubin 1+ (NEGATIVE) H Urine Ictotest Negative Urine Urobilinogen 12 MG/DL (0.0-1.0) H Urine Leukocyte Esterase 1+ (NEGATIVE) H Urine RBC Tntc /HPF (0 - 0) H Urine WBC 2-4 /HPF (0 - 0) Urine Squamous Epithelial Cells Few /LPF (NONE/OCC) Urine Bacteria Few /HPF (NONE) Urine Mucus Moderate /LPF (NONE/OCC) H White Blood Count 6.7 K/UL (4.8-10.8) Red Blood Count 4.56 M/UL (4.70-6.10) L Hemoglobin 13.8 G/DL (14.2-18.0) L Hematocrit 40.9 % (42.0-52.0) L Mean Corpuscular Volume 90 FL (80-99) Mean Corpuscular Hemoglobin 30.2 PG (27.0-31.0) Mean Corpuscular Hemoglobin Concent 33.7 G/DL (32.0-36.0) Red Cell Distribution Width 14.0 % (11.6-14.8) Platelet Count 103 K/UL (150-450) L Mean Platelet Volume 7.6 FL (6.5-10.1) Neutrophils (%) (Auto) 66.6 % (45.0-75.0) Lymphocytes (%) (Auto) 18.3 % (20.0-45.0) L Monocytes (%) (Auto) 12.2 % (1.0-10.0) H Eosinophils (%) (Auto) 2.1 % (0.0-3.0) Basophils (%) (Auto) 0.8 % (0.0-2.0) Sodium Level 139 MMOL/L (136-145) Potassium Level 2.7 MMOL/L (3.5-5.1) *L Chloride Level 101 MMOL/L (98-107) Carbon Dioxide Level 35 MMOL/L (21-32) H Anion Gap 4 mmol/L (5-15) L Blood Urea Nitrogen 6 mg/dL (7-18) L Creatinine 0.6 MG/DL (0.55-1.30) Estimat Glomerular Filtration Rate > 60 mL/min (>60) Glucose Level 110 MG/DL (74-106) H Calcium Level 8.4 MG/DL (8.5-10.1) L Current Medications Medications (Trade) Dose Ordered Sig/Andra Route PRN Reason Start Time Stop Time Status Last Admin Dose Admin Acetaminophen (Tylenol) 650 mg Q4H PRN ORAL fever 08/20/17 19:30 09/15/17 23:29 08/21/17 12:08 Al Hydroxide/Mg Hydroxide (Mylanta II) 30 ml Q6H PRN ORAL dyspepsia 08/20/17 19:31 09/15/17 19:30 Albuterol/ Ipratropium (Albuterol/ Ipratropium) 3 ml Q4H PRN HHN sob 08/21/17 13:30 08/26/17 13:29 Amlodipine Besylate (Norvasc) 5 mg DAILY ORAL 08/22/17 09:00 09/18/17 11:14 08/22/17 09:12 Aspirin (ASA) 325 mg DAILY ORAL 08/21/17 09:00 09/16/17 08:59 08/22/17 09:12 Atorvastatin Calcium (Lipitor) 20 mg BEDTIME ORAL 08/20/17 21:00 09/16/17 20:59 08/21/17 21:15 Chlorhexidine Gluconate ([place]-Hex 2%) 1 applic DAILY@1999 TOPIC 08/20/17 20:00 09/16/17 19:59 08/21/17 21:15 Clonidine HCl (Catapres Tab) 0.1 mg EVERY 6 HOURS PRN ORAL For High Blood Pressure 08/20/17 19:32 09/19/17 19:31 08/22/17 03:47 Dextrose (Dextrose 50%) STAT PRN IV Hypoglycemia 08/20/17 19:32 09/15/17 19:31 Dextrose/ Electrolytes 1,000 ml @ 50 mls/hr Q20H IV 08/20/17 19:15 09/16/17 11:59 08/21/17 15:41 Divalproex Sodium (Depakote Sprinkles) 500 mg Q12HR ORAL 08/21/17 09:00 09/20/17 08:59 08/22/17 09:12 Docusate Sodium (Colace) 100 mg TWICE A DAY NG 08/21/17 18:00 09/20/17 17:59 08/22/17 09:12 Levetiracetam (Keppra) 1,000 mg DAILY ORAL 08/21/17 09:00 09/16/17 08:59 08/22/17 09:13 Lorazepam (Ativan 2mg/ml 1ml) 1 mg Q4H PRN IV For agitation 08/20/17 19:34 08/25/17 19:33 Lorazepam (Ativan 2mg/ml 1ml) 2 mg Q1H PRN IV seizures 08/21/17 09:15 08/28/17 09:14 Morphine Sulfate (Morphine Sulfate) 1 mg EVERY 4 HOURS PRN IVP For Pain 08/20/17 19:33 08/23/17 19:32 Ondansetron HCl (Zofran) 4 mg Q6H PRN IVP Nausea & Vomiting 08/20/17 19:33 09/15/17 19:32 Piperacillin Sod/ Tazobactam Sod 3.375 gm/Dextrose 110 ml @ 27.5 mls/hr EVERY 8 HOURS IVPB 08/21/17 14:00 08/28/17 13:59 08/22/17 07:10 Polyethylene Glycol (Miralax) 17 gm HSPRN PRN ORAL Constipation 08/20/17 19:33 09/15/17 19:32 08/21/17 12:18 Potassium Chloride 40 meq/ Sodium Chloride 570 ml @ 142.5 mls/ hr ONCE ONCE IVPB 08/22/17 09:30 08/22/17 13:29 08/22/17 10:07 Zolpidem Tartrate (Ambien) 5 mg HSPRN PRN ORAL Insomnia 08/21/17 21:00 08/24/17 20:59 Rhona Puri M.D. Aug 22, 2017 13:16
[2017-08-22 16:00] VITALS: BP 160/86
[2017-08-22] MEDS ORDERED: Lactulose 20gm/30ml UDC ORAL ONE (18:00)
[2017-08-22 20:00] VITALS: BP 155/79
--- NOTE | 2017-08-22 20:16 | General Progress Note ---
Assessment/Plan Assessment/Plan encephalopathy behavioral issues bipolar d/o? -cont to monitor -Depakote Subjective Date patient seen: Aug 22, 2017 Neurologic/Psychiatric: Reports: anxiety, depressed, emotional problems Allergies: Coded Allergies: No Known Allergies (Unverified , 01/11/16) Subjective the pt is less agitated Objective Last 24 Hour Vital Signs Date Time Temp Pulse Resp B/P (MAP) Pulse Ox O2 Delivery O2 Flow Rate FiO2 08/22/17 17:32 160/86 08/22/17 16:00 97.3 121 20 160/86 94 97.3 08/22/17 12:00 98.6 104 20 135/81 91 98.6 08/22/17 09:12 102 154/74 08/22/17 08:00 98.2 102 20 154/74 95 98.2 08/22/17 07:24 95 Room Air 21 08/22/17 07:24 Room Air 08/22/17 04:00 100.0 113 20 171/89 95 100.0 08/22/17 03:47 171/89 08/21/17 20:31 Room Air 21 Intake and Output 08/21/17 08/22/17 19:00 07:00 Intake Total 967.5 ml 27.5 ml Output Total 600 ml 600 ml Balance 367.5 ml -572.5 ml Intake Oral 480 ml IV Total 487.5 ml 27.5 ml Output Urine Total 600 ml 600 ml Laboratory Tests 08/21/17 22:30: Urine Color Tammi, Urine Appearance Slightly cloudy, Urine pH 6.5, Urine Specific [place] 1.015, Urine Protein 2+H, Urine Glucose (UA) Negative, Urine Ketones Negative, Urine Occult Blood 5+H, Urine Nitrite Negative, Urine Bilirubin 1+H, Urine Ictotest Negative, Urine Urobilinogen 12H, Urine Leukocyte Esterase 1+H, Urine RBC TntcH, Urine WBC 2-4, Urine Squamous Epithelial Cells Few, Urine Bacteria Few, Urine Mucus ModerateH 08/22/17 06:20: White Blood Count 6.7, Red Blood Count 4.56L, Hemoglobin 13.8L, Hematocrit 40.9L , Mean Corpuscular Volume 90, Mean Corpuscular Hemoglobin 30.2, Mean Corpuscular Hemoglobin Concent 33.7, Red Cell Distribution Width 14.0, Platelet Count 103L, Mean Platelet Volume 7.6, Neutrophils (%) (Auto) 66.6, Lymphocytes ( %) (Auto) 18.3L, Monocytes (%) (Auto) 12.2H, Eosinophils (%) (Auto) 2.1, Basophils (%) (Auto) 0.8, Sodium Level 139, Potassium Level 2.7*L, Chloride Level 101, Carbon Dioxide Level 35H, Anion Gap 4L, Blood Urea Nitrogen 6L, Creatinine 0.6, Estimat Glomerular Filtration Rate > 60, Glucose Level 110H, Calcium Level 8.4L Height (Feet): 5 Height (Inches): 10.00 Weight (Pounds): 170 General Appearance: no apparent distress, alert, confused Josefina Spencer M.D. Aug 22, 2017 20:16
[2017-08-22] MEDS: Dyna-Hex 2% Top Sol 2oz TOPIC SCH (21:35)
[2017-08-22] MEDS: Atorvastatin 20mg tab ORAL SCH (21:35)
[2017-08-23] VITALS: BP_SYST 138; BP_SYST 155; BP_DIAS 79
[2017-08-23] MEDS: D5W w/KCl 20mEq 1,000 ML IV SCH ×2 (00:01→20:43)
[2017-08-23 04:00] VITALS: BP 130/75
[2017-08-23] MEDS: Piperacillin/Tazobactam 3.375 GM in D5W 110 ML IVPB SCH ×3 (05:49→21:20)
[2017-08-23 08:00] VITALS: BP 143/83
[2017-08-23] MEDS: Depakote 125mg Sprinkles ORAL SCH ×2 (09:12→20:44)
[2017-08-23] MEDS: levETIRAcetam 500mg/5ml Liquid ORAL SCH (09:14)
[2017-08-23] MEDS: Docusate 100mg/10ml Liq NG SCH ×2 (09:14→18:00)
--- NOTE | 2017-08-23 09:59 | Pulmonology Progress Note ---
Assessment/Plan Assessment/Plan ASSESSMENT Acute toxic metabolic encephalopathy 2 to seizure Breakthrough seizure with hx of chronic seizure disorder hx of large R MCA CVA hypokalemia hematuria UTI with Proteus fevers dementia with behavioral disturbances HTN encephalopathy possible bipolar disorder PLAN OF CARE MS gentle IVF urine cx + Proteus, abx ID follows blood cx prel negative, influenza screen -negative CXR 08/21 - R base atelectasis, no acute process Seizure precautions Keppra and Depakote Ativan prn for breakthrough seizures Neuro eval appreciated DVT prophylaxis when more awake was started on diet swallow eval noted diet as per ST recs with asp precautions O2 titrate to keep pulse ox above 92% pulm toilet Home meds resumed, including ASA and statin replace lytes as needed ( today replace K, stable Mg) renal parameters stable off heparin due to hematuria, but possibly due to UTI venous Duplex BLE and if negative SCD HH stable renal parameters stable bowel regimen psych eval appreciated monitor BP, increase dose of Norvasc , continue Clonidine prn , DNR/DNI status case discussed and evaluated by supervising physician Subjective Allergies: Coded Allergies: No Known Allergies (Unverified , 01/11/16) Subjective fever 102.3 at midnight, currently afebrile, labs pending Objective Last 24 Hour Vital Signs Date Time Temp Pulse Resp B/P (MAP) Pulse Ox O2 Delivery O2 Flow Rate FiO2 08/23/17 09:14 114 143/83 08/23/17 04:00 98.5 99 20 130/75 93 Room Air 98.5 08/23/17 00:44 98.8 08/23/17 00:00 102.3 83 20 138/79 93 Room Air 102.3 08/22/17 23:45 102.3 08/22/17 20:00 99.1 98 20 155/79 92 Room Air 99.1 08/22/17 19:30 92 Room Air 21 08/22/17 19:30 Room Air 21 08/22/17 17:32 160/86 08/22/17 16:00 97.3 121 20 160/86 94 97.3 08/22/17 12:00 98.6 104 20 135/81 91 98.6 Intake and Output 08/22/17 08/23/17 19:00 07:00 Intake Total 1160.0 ml 687.5 ml Output Total 600 ml 600 ml Balance 560.0 ml 87.5 ml Intake Oral 120 ml IV Total 1040.0 ml 687.5 ml Output Urine Total 600 ml 600 ml # Voids 3 # Bowel Movements 3 Objective General Appearance: no acute distress; O2 via NC Respiratory/Chest: no respiratory distress, no accessory muscle use Cardiovascular: mild tachy , regular rhythm, RUE PICC intact Abdomen: normal bowel sounds, soft, non tender, non distended Neurologic/Psychiatric: abnormal gait, alert, restless Microbiology Date/Time Source Procedure Growth Status 08/21/17 16:15 Blood Blood Culture - Preliminary NO GROWTH AFTER 24 HOURS Resulted 08/21/17 16:00 Blood Blood Culture - Preliminary NO GROWTH AFTER 24 HOURS Resulted 08/23/17 00:01 Nasopharynx Influenza Types A,B Antigen (COOPER) - Final Complete Current Medications Medications (Trade) Dose Ordered Sig/Andra Route PRN Reason Start Time Stop Time Status Last Admin Dose Admin Acetaminophen (Tylenol) 650 mg Q4H PRN ORAL fever 08/20/17 19:30 09/15/17 23:29 08/22/17 23:45 Al Hydroxide/Mg Hydroxide (Mylanta II) 30 ml Q6H PRN ORAL dyspepsia 08/20/17 19:31 09/15/17 19:30 Albuterol/ Ipratropium (Albuterol/ Ipratropium) 3 ml Q4H PRN HHN sob 08/21/17 13:30 08/26/17 13:29 Amlodipine Besylate (Norvasc) 5 mg DAILY ORAL 08/22/17 09:00 09/18/17 11:14 08/23/17 09:14 Aspirin (ASA) 325 mg DAILY ORAL 08/21/17 09:00 09/16/17 08:59 08/23/17 09:12 Atorvastatin Calcium (Lipitor) 20 mg BEDTIME ORAL 08/20/17 21:00 09/16/17 20:59 08/22/17 21:35 Chlorhexidine Gluconate ([place]-Hex 2%) 1 applic DAILY@1999 TOPIC 08/20/17 20:00 09/16/17 19:59 08/22/17 21:35 Clonidine HCl (Catapres Tab) 0.1 mg EVERY 6 HOURS PRN ORAL For High Blood Pressure 08/20/17 19:32 09/19/17 19:31 08/22/17 17:32 Dextrose (Dextrose 50%) STAT PRN IV Hypoglycemia 08/20/17 19:32 09/15/17 19:31 Dextrose/ Electrolytes 1,000 ml @ 50 mls/hr Q20H IV 08/20/17 19:15 09/16/17 11:59 08/23/17 00:01 Divalproex Sodium (Depakote Sprinkles) 500 mg Q12HR ORAL 08/21/17 09:00 09/20/17 08:59 08/23/17 09:12 Docusate Sodium (Colace) 100 mg TWICE A DAY NG 08/21/17 18:00 09/20/17 17:59 08/23/17 09:14 Levetiracetam (Keppra) 1,000 mg DAILY ORAL 08/21/17 09:00 09/16/17 08:59 08/23/17 09:14 Lorazepam (Ativan 2mg/ml 1ml) 1 mg Q4H PRN IV For agitation 08/20/17 19:34 08/25/17 19:33 Lorazepam (Ativan 2mg/ml 1ml) 2 mg Q1H PRN IV seizures 08/21/17 09:15 08/28/17 09:14 Morphine Sulfate (Morphine Sulfate) 1 mg EVERY 4 HOURS PRN IVP For Pain 08/20/17 19:33 08/23/17 19:32 Ondansetron HCl (Zofran) 4 mg Q6H PRN IVP Nausea & Vomiting 08/20/17 19:33 09/15/17 19:32 Piperacillin Sod/ Tazobactam Sod 3.375 gm/Dextrose 110 ml @ 27.5 mls/hr EVERY 8 HOURS IVPB 08/21/17 14:00 08/28/17 13:59 08/23/17 05:49 Polyethylene Glycol (Miralax) 17 gm HSPRN PRN ORAL Constipation 08/20/17 19:33 09/15/17 19:32 08/21/17 12:18 Zolpidem Tartrate (Ambien) 5 mg HSPRN PRN ORAL Insomnia 08/21/17 21:00 08/24/17 20:59 Liliana Shannon NP ([facility]) Aug 23, 2017 09:59
[2017-08-23 12:00] VITALS: BP 166/121
--- NOTE | 2017-08-23 13:37 | General Progress Note ---
Assessment/Plan Status: stable, progressing Assessment/Plan encephalopathy behavioral issues bipolar d/o? -cont to monitor -Depakote Subjective Date patient seen: Aug 23, 2017 Neurologic/Psychiatric: Reports: anxiety, depressed Allergies: Coded Allergies: No Known Allergies (Unverified , 01/11/16) Subjective the pt is less agitated Objective Last 24 Hour Vital Signs Date Time Temp Pulse Resp B/P (MAP) Pulse Ox O2 Delivery O2 Flow Rate FiO2 08/23/17 11:42 110 18 Room Air 21 08/23/17 09:14 114 143/83 08/23/17 08:00 97.7 114 20 143/83 95 Room Air 97.7 08/23/17 07:45 93 Room Air 21 08/23/17 07:45 Room Air 21 08/23/17 04:00 98.5 99 20 130/75 93 Room Air 98.5 08/23/17 00:44 98.8 08/23/17 00:00 102.3 83 20 138/79 93 Room Air 102.3 08/22/17 23:45 102.3 08/22/17 20:00 99.1 98 20 155/79 92 Room Air 99.1 08/22/17 19:30 92 Room Air 21 08/22/17 19:30 Room Air 21 08/22/17 17:32 160/86 08/22/17 16:00 97.3 121 20 160/86 94 97.3 Intake and Output 08/22/17 08/23/17 19:00 07:00 Intake Total 1160.0 ml 687.5 ml Output Total 600 ml 600 ml Balance 560.0 ml 87.5 ml Intake Oral 120 ml IV Total 1040.0 ml 687.5 ml Output Urine Total 600 ml 600 ml # Voids 3 # Bowel Movements 3 Height (Feet): 5 Height (Inches): 10.00 Weight (Pounds): 170 General Appearance: no apparent distress, alert Neurologic: responsive, depressed affect Josefina Spencer M.D. Aug 23, 2017 13:37
--- NOTE | 2017-08-23 15:54 | Infectious Diseases Prog Note ---
Assessment/Plan Assessment/Plan Abx: Ceftriaxone x1 08/20 Zosyn 08/21- Assessment: Fever, ongoing- likely 2ry to ESBL UTI- r/o bacteremia, pancreatitis, cholecysitis, DVT, pna; r/o intracranial process -08/19 u/a wbc 5-10, nit +, leuk +2; ucx >100K P. mirabilis, ESBL (S Genta, Zosyn, Bactrim, Ertapenem); repeat u/a 08/21 wbc tntc, nit-, leuk +1; ucx p -Bcx 08/21 NTD -CXr 08/21: Right basilar atelectasis. No acute process otherwise. PICC -CXr 08/16 no acute disease -no leukocytosis -influenza sc neg Seizure disorder with seizure episode upon admission Large R MCA stroke CAD HLD HTN schizoaffective disorder [place] resident NKDA DNR Plan: -Continue Zosyn #3 ESBL UTI (Ertapnem has drug interaction with valproic acid reducing levels ~66%) -08/20 SP Ceftriaxone x1 -Repeat 2 sets Bcx, u/a w/, CXR -V duplex -amylase, lipase -Stat Head CT w/wo to r/o new intracranial pathology given fevers and seizure upon admission -f/u cx -Monitor CBC/BMP, temperatures -aspiration precautions -CBC, CMP am Thank you for this consultation. Will continue to follow along with you. Discussed with RN. Subjective Allergies: Coded Allergies: No Known Allergies (Unverified , 01/11/16) Subjective Febrile to 102.3 last night, now afebrile >12hrs Objective Vital Signs Last 24 Hour Vital Signs Date Time Temp Pulse Resp B/P (MAP) Pulse Ox O2 Delivery O2 Flow Rate FiO2 08/23/17 14:51 166/121 08/23/17 14:51 99.0 08/23/17 12:00 99.0 126 20 166/121 96 Room Air 99.0 08/23/17 11:42 110 18 Room Air 21 08/23/17 09:14 114 143/83 08/23/17 08:00 97.7 114 20 143/83 95 Room Air 97.7 08/23/17 07:45 93 Room Air 21 08/23/17 07:45 Room Air 21 08/23/17 04:00 98.5 99 20 130/75 93 Room Air 98.5 08/23/17 00:44 98.8 08/23/17 00:00 102.3 83 20 138/79 93 Room Air 102.3 08/22/17 23:45 102.3 08/22/17 20:00 99.1 98 20 155/79 92 Room Air 99.1 08/22/17 19:30 92 Room Air 21 08/22/17 19:30 Room Air 21 08/22/17 17:32 160/86 08/22/17 16:00 97.3 121 20 160/86 94 97.3 Height (Feet): 5 Height (Inches): 10.00 Weight (Pounds): 170 Objective General Appearance: no acute distress; O2 via NC Respiratory/Chest: no respiratory distress, no accessory muscle use Cardiovascular: normal rate - SR on tele , regular rhythm, RUE PICC intact Abdomen: normal bowel sounds, soft, non tender, non distended Neurologic/Psychiatric: abnormal gait, alert, restless Microbiology Date/Time Source Procedure Growth Status 08/21/17 16:15 Blood Blood Culture - Preliminary NO GROWTH AFTER 24 HOURS Resulted 08/21/17 16:00 Blood Blood Culture - Preliminary NO GROWTH AFTER 24 HOURS Resulted 08/23/17 00:01 Nasopharynx Influenza Types A,B Antigen (COOPER) - Final Complete Current Medications Medications (Trade) Dose Ordered Sig/Andra Route PRN Reason Start Time Stop Time Status Last Admin Dose Admin Acetaminophen (Tylenol) 650 mg Q4H PRN ORAL fever 08/20/17 19:30 09/15/17 23:29 08/23/17 14:51 Al Hydroxide/Mg Hydroxide (Mylanta II) 30 ml Q6H PRN ORAL dyspepsia 08/20/17 19:31 09/15/17 19:30 Albuterol/ Ipratropium (Albuterol/ Ipratropium) 3 ml Q4H PRN HHN sob 08/21/17 13:30 08/26/17 13:29 Amlodipine Besylate (Norvasc) 5 mg DAILY ORAL 08/22/17 09:00 09/18/17 11:14 08/23/17 09:14 Aspirin (ASA) 325 mg DAILY ORAL 08/21/17 09:00 09/16/17 08:59 08/23/17 09:12 Atorvastatin Calcium (Lipitor) 20 mg BEDTIME ORAL 08/20/17 21:00 09/16/17 20:59 08/22/17 21:35 Chlorhexidine Gluconate ([place]-Hex 2%) 1 applic DAILY@2000 TOPIC 08/20/17 20:00 09/16/17 19:59 08/22/17 21:35 Clonidine HCl (Catapres Tab) 0.1 mg EVERY 6 HOURS PRN ORAL For High Blood Pressure 08/20/17 19:32 09/19/17 19:31 08/23/17 14:51 Dextrose (Dextrose 50%) STAT PRN IV Hypoglycemia 08/20/17 19:32 09/15/17 19:31 Dextrose/ Electrolytes 1,000 ml @ 50 mls/hr Q20H IV 08/20/17 19:15 09/16/17 11:59 08/23/17 00:01 Divalproex Sodium (Depakote Sprinkles) 500 mg Q12HR ORAL 08/21/17 09:00 09/20/17 08:59 08/23/17 09:12 Docusate Sodium (Colace) 100 mg TWICE A DAY NG 08/21/17 18:00 09/20/17 17:59 08/23/17 09:14 Levetiracetam (Keppra) 1,000 mg DAILY ORAL 08/21/17 09:00 09/16/17 08:59 08/23/17 09:14 Lorazepam (Ativan 2mg/ml 1ml) 1 mg Q4H PRN IV For agitation 08/20/17 19:34 08/25/17 19:33 Lorazepam (Ativan 2mg/ml 1ml) 2 mg Q1H PRN IV seizures 08/21/17 09:15 08/28/17 09:14 Morphine Sulfate (Morphine Sulfate) 1 mg EVERY 4 HOURS PRN IVP For Pain 08/20/17 19:33 08/23/17 19:32 Ondansetron HCl (Zofran) 4 mg Q6H PRN IVP Nausea & Vomiting 08/20/17 19:33 09/15/17 19:32 Piperacillin Sod/ Tazobactam Sod 3.375 gm/Dextrose 110 ml @ 27.5 mls/hr EVERY 8 HOURS IVPB 08/21/17 14:00 08/28/17 13:59 08/23/17 14:51 Polyethylene Glycol (Miralax) 17 gm HSPRN PRN ORAL Constipation 08/20/17 19:33 09/15/17 19:32 08/21/17 12:18 Zolpidem Tartrate (Ambien) 5 mg HSPRN PRN ORAL Insomnia 08/21/17 21:00 08/24/17 20:59 Rhona Puri M.D. Aug 23, 2017 15:54
[2017-08-23 16:00] VITALS: BP 161/96
[2017-08-23 20:00] VITALS: BP 127/75
[2017-08-23] MEDS: Dyna-Hex 2% Top Sol 2oz TOPIC SCH (20:43)
[2017-08-23] MEDS: Atorvastatin 20mg tab ORAL SCH (20:44)
[2017-08-24] VITALS: BP 143/70
[2017-08-24 02:42] LABS: APPEARANCE,URINE CLEAR; BILIRUBIN, URINE NEGATIVE (NEGATIVE); GLUCOSE, URINE (UA) NEGATIVE (NEGATIVE); KETONES,URINE NEGATIVE (NEGATIVE); LEUKOCYTE ESTERASE ,URINE NEGATIVE (NEGATIVE); NITRITE,URINE NEGATIVE (NEGATIVE); PH,URINE 6.5 (4.5-8.0); PROTEIN,URINE 1+ (NEGATIVE); UROBILINOGEN,URINE 12 MG/DL (0.0-1.0)
[2017-08-24 02:44] LABS: COLOR,URINE YELLOW
[2017-08-24 04:00] VITALS: BP 146/85
[2017-08-24] MEDS: Piperacillin/Tazobactam 3.375 GM in D5W 110 ML IVPB SCH ×3 (05:34→21:42)
[2017-08-24 06:23] LABS: MEAN CORPUSCULAR VOLUME 88 FL (80-99); PLATELET COUNT 93 K/UL (150-450); RED BLOOD COUNT 4.77 M/UL (4.70-6.10); RED CELL DISTRIBUTION WIDTH 13.7 % (11.6-14.8); WHITE BLOOD COUNT 6.6 K/UL (4.8-10.8)
[2017-08-24 06:45] LABS: ALANINE AMINOTRANSFERASE 19 U/L (12-78); ALBUMIN 2.7 G/DL (3.4-5.0); ALBUMIN/GLOBULIN RATIO 0.7 (1.0-2.7); ALKALINE PHOSPHATASE 81 U/L (46-116); AMYLASE 57 U/L (25-115); ANION GAP 7 mmol/L (5-15); ASPARTATE AMINO TRANSFERASE 31 U/L (15-37); BLOOD UREA NITROGEN 3 mg/dL (7-18); CALCIUM 8.6 MG/DL (8.5-10.1); CARBON DIOXIDE 32 MMOL/L (21-32); CHLORIDE 97 MMOL/L (98-107); CREATININE 0.5 MG/DL (0.55-1.30); SODIUM 137 MMOL/L (136-145)
[2017-08-24 06:47] LABS: POTASSIUM 2.4 MMOL/L (3.5-5.1)
[2017-08-24 08:00] VITALS: BP 160/78
--- NOTE | 2017-08-24 08:50 | Diagnostic Imaging Report ---
APPROVED REPORT CPT Code: 75177 Present Symptoms Comments: R/O DVT RIGHT LEG: Venous imaging reveals a patent deep venous system. There is no evidence of thrombus within the femoral, popliteal or tibial segments. The greater saphenous vein is also within normal limits. Doppler indicates normal spontaneous flow within these segments. 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 Large collateral vein noted anterior to the superficial femoral artery. Imaging also reveals patency of the common femoral, popliteal and calf veins. The greater saphenous vein is also within normal limits. Doppler indicates normal spontaneous flow within these segments. There is no evidence of acute deep vein thrombosis.
[2017-08-24] MEDS: levETIRAcetam 500mg/5ml Liquid ORAL SCH (09:25)
[2017-08-24] MEDS: Docusate 100mg/10ml Liq NG SCH ×2 (09:25→17:17)
[2017-08-24] MEDS: Depakote 125mg Sprinkles ORAL SCH ×2 (09:25→20:46)
--- NOTE | 2017-08-24 10:43 | Pulmonology Progress Note ---
Assessment/Plan Assessment/Plan ASSESSMENT Acute toxic metabolic encephalopathy 2 to seizure Breakthrough seizure with hx of chronic seizure disorder hx of large R MCA CVA hypokalemia hematuria UTI with Proteus fevers dementia with behavioral disturbances HTN encephalopathy possible bipolar disorder PLAN OF CARE MS s/p gentle IVF urine cx + Proteus, abx ID follows blood cx prel negative, influenza screen -negative CXR 08/21 - R base atelectasis, no acute process Seizure precautions Keppra and Depakote Ativan prn for breakthrough seizures Neuro eval appreciated DVT prophylaxis when more awake was started on diet swallow eval noted diet as per ST recs with asp precautions O2 titrate to keep pulse ox above 92% pulm toilet Home meds resumed, including ASA and statin replace lytes as needed ( today replace K, ) renal parameters stable off heparin due to hematuria, but possibly due to UTI hematuria resolved, likely was due to UTI venous Duplex BLE with chrobnci thrombus LLE, no acute DVT SCD HH stable renal parameters stable bowel regimen psych eval appreciated monitor BP, increase dose of Norvasc , continue Clonidine prn , DNR/DNI status ID ordered CT head w/wo contrast patient with chronic seizure disorder , hx of large CVA per ID concern due to fever and seizure on admission patient had no family member to consent patient needs procedure urgently case discussed and evaluated by supervising physician Subjective Allergies: Coded Allergies: No Known Allergies (Unverified , 01/11/16) Subjective no further fevers, no leucocytosis K-2.4 Objective Last 24 Hour Vital Signs Date Time Temp Pulse Resp B/P (MAP) Pulse Ox O2 Delivery O2 Flow Rate FiO2 08/24/17 09:25 100 160/78 08/24/17 08:00 97.8 100 20 160/78 98 97.8 08/24/17 04:00 97.4 108 20 146/85 95 97.4 08/24/17 00:00 97.4 104 20 143/70 96 Room Air 97.4 08/23/17 20:43 95 Room Air 21 08/23/17 20:43 Room Air 21 08/23/17 20:43 105 18 Room Air 21 08/23/17 20:00 98.5 101 20 127/75 93 Room Air 98.5 08/23/17 16:00 97.6 62 20 161/96 98 Room Air 97.6 08/23/17 15:50 99.4 08/23/17 14:51 166/121 08/23/17 14:51 99.0 08/23/17 12:00 99.0 126 20 166/121 96 Room Air 99.0 08/23/17 11:42 110 18 Room Air 21 Intake and Output 08/23/17 08/24/17 19:00 07:00 Intake Total 150 ml 637.5 ml Output Total 550 ml 500 ml Balance -400 ml 137.5 ml Intake Oral 100 ml IV Total 50 ml 637.5 ml Output Urine Total 550 ml 500 ml # Voids 3 # Bowel Movements 1 Objective General Appearance: no acute distress; O2 via NC Respiratory/Chest: no respiratory distress, no accessory muscle use Cardiovascular: normal rate , regular , RUE PICC intact Abdomen: normal bowel sounds, soft, non tender, non distended Neurologic/Psychiatric: abnormal gait, alert, restless Microbiology Date/Time Source Procedure Growth Status 08/21/17 16:15 Blood Blood Culture - Preliminary NO GROWTH AFTER 48 HOURS Resulted 08/21/17 16:00 Blood Blood Culture - Preliminary NO GROWTH AFTER 48 HOURS Resulted 08/23/17 00:01 Nasopharynx Influenza Types A,B Antigen (COOPER) - Final Complete Laboratory Tests 08/23/17 23:50: Urine Color Yellow, Urine Appearance Clear, Urine pH 6.5, Urine Specific [place] 1.010, Urine Protein 1+H, Urine Glucose (UA) Negative, Urine Ketones Negative, Urine Occult Blood 4+H, Urine Nitrite Negative, Urine Bilirubin Negative, Urine Urobilinogen 12H, Urine Leukocyte Esterase Negative, Urine RBC TntcH, Urine WBC 2-4, Urine Squamous Epithelial Cells Few, Urine Bacteria Few 08/24/17 05:40: White Blood Count 6.6, Red Blood Count 4.77, Hemoglobin 14.0L, Hematocrit 42.0, Mean Corpuscular Volume 88, Mean Corpuscular Hemoglobin 29.4, Mean Corpuscular Hemoglobin Concent 33.4, Red Cell Distribution Width 13.7, Platelet Count 93L, Mean Platelet Volume 7.0, Neutrophils (%) (Auto) , Lymphocytes (%) (Auto) , Monocytes (%) (Auto) , Eosinophils (%) (Auto) , Basophils (%) (Auto) , Differential Total Cells Counted 100, Neutrophils % (Manual) 54, Lymphocytes % ( Manual) 32, Monocytes % (Manual) 14H, Eosinophils % (Manual) 0, Basophils % ( Manual) 0, Band Neutrophils 0, Platelet Estimate DecreasedL, Platelet Morphology Normal, Red Blood Cell Morphology Normal, Sodium Level 137, Potassium Level 2.4*L, Chloride Level 97L, Carbon Dioxide Level 32, Anion Gap 7 , Blood Urea Nitrogen 3L, Creatinine 0.5L, Estimat Glomerular Filtration Rate > 60, Glucose Level 97, Calcium Level 8.6, Total Bilirubin 1.0, Aspartate Amino Transf (AST/SGOT) 31, Alanine Aminotransferase (ALT/SGPT) 19, Alkaline Phosphatase 81, Total Protein 6.8, Albumin 2.7L, Globulin 4.1, Albumin/Globulin Ratio 0.7L, Amylase Level 57, Lipase 130 Current Medications Medications (Trade) Dose Ordered Sig/Andra Route PRN Reason Start Time Stop Time Status Last Admin Dose Admin Acetaminophen (Tylenol) 650 mg Q4H PRN ORAL fever 08/20/17 19:30 09/15/17 23:29 08/23/17 14:51 Al Hydroxide/Mg Hydroxide (Mylanta II) 30 ml Q6H PRN ORAL dyspepsia 08/20/17 19:31 09/15/17 19:30 Albuterol/ Ipratropium (Albuterol/ Ipratropium) 3 ml Q4H PRN HHN sob 08/21/17 13:30 08/26/17 13:29 Amlodipine Besylate (Norvasc) 5 mg DAILY ORAL 08/22/17 09:00 09/18/17 11:14 08/24/17 09:25 Aspirin (ASA) 325 mg DAILY ORAL 08/21/17 09:00 09/16/17 08:59 08/24/17 09:25 Atorvastatin Calcium (Lipitor) 20 mg BEDTIME ORAL 08/20/17 21:00 09/16/17 20:59 08/23/17 20:44 Chlorhexidine Gluconate ([place]-Hex 2%) 1 applic DAILY@1999 TOPIC 08/20/17 20:00 09/16/17 19:59 08/23/17 20:43 Clonidine HCl (Catapres Tab) 0.1 mg EVERY 6 HOURS PRN ORAL For High Blood Pressure 08/20/17 19:32 09/19/17 19:31 08/23/17 14:51 Dextrose (Dextrose 50%) STAT PRN IV Hypoglycemia 08/20/17 19:32 09/15/17 19:31 Dextrose/ Electrolytes 1,000 ml @ 50 mls/hr Q20H IV 08/20/17 19:15 09/16/17 11:59 08/23/17 20:43 Divalproex Sodium (Depakote Sprinkles) 500 mg Q12HR ORAL 08/21/17 09:00 09/20/17 08:59 08/24/17 09:25 Docusate Sodium (Colace) 100 mg TWICE A DAY NG 08/21/17 18:00 09/20/17 17:59 08/24/17 09:25 Levetiracetam (Keppra) 1,000 mg DAILY ORAL 08/21/17 09:00 09/16/17 08:59 08/24/17 09:25 Lorazepam (Ativan 2mg/ml 1ml) 1 mg Q4H PRN IV For agitation 08/20/17 19:34 08/25/17 19:33 Lorazepam (Ativan 2mg/ml 1ml) 2 mg Q1H PRN IV seizures 08/21/17 09:15 08/28/17 09:14 Ondansetron HCl (Zofran) 4 mg Q6H PRN IVP Nausea & Vomiting 08/20/17 19:33 09/15/17 19:32 Piperacillin Sod/ Tazobactam Sod 3.375 gm/Dextrose 110 ml @ 27.5 mls/hr EVERY 8 HOURS IVPB 08/21/17 14:00 08/28/17 13:59 08/24/17 05:34 Polyethylene Glycol (Miralax) 17 gm HSPRN PRN ORAL Constipation 08/20/17 19:33 09/15/17 19:32 08/21/17 12:18 Potassium Chloride 40 meq/ Sodium Chloride 570 ml @ 142.5 mls/ hr Q4H IVPB 08/24/17 10:00 08/24/17 17:59 Zolpidem Tartrate (Ambien) 5 mg HSPRN PRN ORAL Insomnia 08/21/17 21:00 08/24/17 20:59 Liliana Shannon NP ([place]) Aug 24, 2017 10:43
[2017-08-24] MEDS: Potassium Chloride 40 MEQ in Sodium Chloride 500ML 550 ML IVPB SCH ×2 (10:49→17:16)
[2017-08-24] MEDS ORDERED: Albuterol/Ipratropium 3ml neb HHN PRN (11:00)
[2017-08-24 11:19] VITALS: BP 138/95
--- NOTE | 2017-08-24 13:07 | Consultation ---
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
[2017-08-24] MEDS ORDERED: Spironolactone 50mg tab ORAL ONE (14:00)
--- NOTE | 2017-08-24 14:56 | Infectious Diseases Prog Note ---
Assessment/Plan Assessment/Plan Abx: Ceftriaxone x1 08/20 Zosyn 08/21- Assessment: Fever, ongoing- likely 2ry to ESBL UTI- r/o bacteremia, pancreatitis, cholecysitis, DVT, pna; r/o intracranial process -08/19 u/a wbc 5-10, nit +, leuk +2; ucx >100K P. mirabilis, ESBL (S Genta, Zosyn, Bactrim, Ertapenem); repeat u/a 08/21 wbc tntc, nit-, leuk +1; ucx p -Bcx 08/21 NTD -CXr 08/21: Right basilar atelectasis. No acute process otherwise. PICC -CXr 08/16 no acute disease -no leukocytosis -influenza sc neg -V. duplex: RIGHT LEG:No DVT; L leg: No acute DVT. recanalized chronic thrombus in the superficial femoral vein. Seizure disorder with seizure episode upon admission Large R MCA stroke CAD HLD HTN schizoaffective disorder [place] resident NKDA DNR Plan: -Continue Zosyn #4/7 ESBL UTI (Ertapenem has drug interaction with valproic acid reducing levels ~66%) -08/20 SP Ceftriaxone x1 -f/u Repeat 2 sets Bcx, Ucx,CXR -f/u Head CT w/wo to r/o new intracranial pathology given fevers and seizure upon admission -f/u cx -Monitor CBC/BMP, temperatures -aspiration precautions Thank you for this consultation. Will continue to follow along with you. Discussed with RN. Subjective Allergies: Coded Allergies: No Known Allergies (Unverified , 01/11/16) Subjective aefbrile in 36hrs repeat Bcx p CT head and CXR p Objective Vital Signs Last 24 Hour Vital Signs Date Time Temp Pulse Resp B/P (MAP) Pulse Ox O2 Delivery O2 Flow Rate FiO2 08/24/17 11:19 97.5 110 20 138/95 98 97.5 08/24/17 09:25 100 160/78 08/24/17 08:00 97.8 100 20 160/78 98 97.8 08/24/17 04:00 97.4 108 20 146/85 95 97.4 08/24/17 00:00 97.4 104 20 143/70 96 Room Air 97.4 08/23/17 20:43 95 Room Air 21 08/23/17 20:43 Room Air 21 08/23/17 20:43 105 18 Room Air 21 08/23/17 20:00 98.5 101 20 127/75 93 Room Air 98.5 08/23/17 16:00 97.6 62 20 161/96 98 Room Air 97.6 08/23/17 15:50 99.4 08/23/17 14:51 166/121 08/23/17 14:51 99.0 Height (Feet): 5 Height (Inches): 10.00 Weight (Pounds): 170 Objective General Appearance: no acute distress; O2 via NC Respiratory/Chest: no respiratory distress, no accessory muscle use Cardiovascular: normal rate - SR on tele , regular rhythm, RUE PICC intact Abdomen: normal bowel sounds, soft, non tender, non distended Neurologic/Psychiatric: abnormal gait, alert, restless Microbiology Date/Time Source Procedure Growth Status 08/21/17 16:15 Blood Blood Culture - Preliminary NO GROWTH AFTER 48 HOURS Resulted 08/21/17 16:00 Blood Blood Culture - Preliminary NO GROWTH AFTER 48 HOURS Resulted 08/23/17 00:01 Nasopharynx Influenza Types A,B Antigen (COOPER) - Final Complete Laboratory Tests Test 08/23/17 23:50 08/24/17 05:40 Urine Color Yellow Urine Appearance Clear Urine pH 6.5 (4.5-8.0) Urine Specific [place] 1.010 (1.005-1.035) Urine Protein 1+ (NEGATIVE) H Urine Glucose (UA) Negative (NEGATIVE) Urine Ketones Negative (NEGATIVE) Urine Occult Blood 4+ (NEGATIVE) H Urine Nitrite Negative (NEGATIVE) Urine Bilirubin Negative (NEGATIVE) Urine Urobilinogen 12 MG/DL (0.0-1.0) H Urine Leukocyte Esterase Negative (NEGATIVE) Urine RBC Tntc /HPF (0 - 0) H Urine WBC 2-4 /HPF (0 - 0) Urine Squamous Epithelial Cells Few /LPF (NONE/OCC) Urine Bacteria Few /HPF (NONE) White Blood Count 6.6 K/UL (4.8-10.8) Red Blood Count 4.77 M/UL (4.70-6.10) Hemoglobin 14.0 G/DL (14.2-18.0) L Hematocrit 42.0 % (42.0-52.0) Mean Corpuscular Volume 88 FL (80-99) Mean Corpuscular Hemoglobin 29.4 PG (27.0-31.0) Mean Corpuscular Hemoglobin Concent 33.4 G/DL (32.0-36.0) Red Cell Distribution Width 13.7 % (11.6-14.8) Platelet Count 93 K/UL (150-450) L Mean Platelet Volume 7.0 FL (6.5-10.1) Neutrophils (%) (Auto) % (45.0-75.0) Lymphocytes (%) (Auto) % (20.0-45.0) Monocytes (%) (Auto) % (1.0-10.0) Eosinophils (%) (Auto) % (0.0-3.0) Basophils (%) (Auto) % (0.0-2.0) Differential Total Cells Counted 100 Neutrophils % (Manual) 54 % (45-75) Lymphocytes % (Manual) 32 % (20-45) Monocytes % (Manual) 14 % (1-10) H Eosinophils % (Manual) 0 % (0-3) Basophils % (Manual) 0 % (0-2) Band Neutrophils 0 % (0-8) Platelet Estimate Decreased L Platelet Morphology Normal Red Blood Cell Morphology Normal Sodium Level 137 MMOL/L (136-145) Potassium Level 2.4 MMOL/L (3.5-5.1) *L Chloride Level 97 MMOL/L (98-107) L Carbon Dioxide Level 32 MMOL/L (21-32) Anion Gap 7 mmol/L (5-15) Blood Urea Nitrogen 3 mg/dL (7-18) L Creatinine 0.5 MG/DL (0.55-1.30) L Estimat Glomerular Filtration Rate > 60 mL/min (>60) Glucose Level 97 MG/DL (74-106) Calcium Level 8.6 MG/DL (8.5-10.1) Total Bilirubin 1.0 MG/DL (0.2-1.0) Aspartate Amino Transf (AST/SGOT) 31 U/L (15-37) Alanine Aminotransferase (ALT/SGPT) 19 U/L (12-78) Alkaline Phosphatase 81 U/L (46-116) C-Reactive Protein, Quantitative 5.2 mg/dL (0.00-0.90) H Total Protein 6.8 G/DL (6.4-8.2) Albumin 2.7 G/DL (3.4-5.0) L Globulin 4.1 g/dL Albumin/Globulin Ratio 0.7 (1.0-2.7) L Amylase Level 57 U/L (25-115) Lipase 130 U/L (73-393) Current Medications Medications (Trade) Dose Ordered Sig/Andra Route PRN Reason Start Time Stop Time Status Last Admin Dose Admin Acetaminophen (Tylenol) 650 mg Q4H PRN ORAL fever 08/20/17 19:30 09/15/17 23:29 08/23/17 14:51 Albuterol/ Ipratropium (Albuterol/ Ipratropium) 3 ml Q4H PRN HHN sob 08/24/17 11:00 08/29/17 10:59 Amlodipine Besylate (Norvasc) 5 mg BID ORAL 08/24/17 18:00 09/18/17 11:14 Aspirin (ASA) 325 mg DAILY ORAL 08/21/17 09:00 09/16/17 08:59 08/24/17 09:25 Atorvastatin Calcium (Lipitor) 20 mg BEDTIME ORAL 08/20/17 21:00 09/16/17 20:59 08/23/17 20:44 Chlorhexidine Gluconate ([place]-Hex 2%) 1 applic DAILY@1999 TOPIC 08/20/17 20:00 09/16/17 19:59 08/23/17 20:43 Clonidine HCl (Catapres Tab) 0.1 mg EVERY 6 HOURS PRN ORAL For High Blood Pressure 08/20/17 19:32 09/19/17 19:31 08/23/17 14:51 Dextrose (Dextrose 50%) STAT PRN IV Hypoglycemia 08/20/17 19:32 09/15/17 19:31 Divalproex Sodium (Depakote Sprinkles) 500 mg Q12HR ORAL 08/21/17 09:00 09/20/17 08:59 08/24/17 09:25 Docusate Sodium (Colace) 100 mg TWICE A DAY NG 08/21/17 18:00 09/20/17 17:59 08/24/17 09:25 Levetiracetam (Keppra) 1,000 mg DAILY ORAL 08/21/17 09:00 4/22/18 08:59 08/24/17 09:25 Lorazepam (Ativan 2mg/ml 1ml) 1 mg Q4H PRN IV For agitation 08/20/17 19:34 08/25/17 19:33 Lorazepam (Ativan 2mg/ml 1ml) 2 mg Q1H PRN IV seizures 08/21/17 09:15 08/28/17 09:14 Ondansetron HCl (Zofran) 4 mg Q6H PRN IVP Nausea & Vomiting 08/20/17 19:33 09/15/17 19:32 Piperacillin Sod/ Tazobactam Sod 3.375 gm/Dextrose 110 ml @ 27.5 mls/hr EVERY 8 HOURS IVPB 08/21/17 14:00 08/28/17 13:59 08/24/17 05:34 Polyethylene Glycol (Miralax) 17 gm HSPRN PRN ORAL Constipation 08/20/17 19:33 09/15/17 19:32 08/21/17 12:18 Potassium Chloride 40 meq/ Sodium Chloride 570 ml @ 142.5 mls/ hr Q4H IVPB 08/24/17 10:00 08/24/17 17:59 08/24/17 10:49 Potassium Chloride (K-Dur) 40 meq TWICE A DAY ORAL 08/24/17 14:00 09/23/17 13:59 Zolpidem Tartrate (Ambien) 5 mg HSPRN PRN ORAL Insomnia 08/24/17 21:00 08/27/17 20:59 Rhona Puri M.D. Aug 24, 2017 14:56
--- NOTE | 2017-08-24 15:20 | General Progress Note ---
Assessment/Plan Assessment/Plan encephalopathy behavioral issues bipolar d/o? -cont to monitor -Depakote Subjective Date patient seen: Aug 24, 2017 Allergies: Coded Allergies: No Known Allergies (Unverified , 01/11/16) Subjective the pt is less agitated Objective Last 24 Hour Vital Signs Date Time Temp Pulse Resp B/P (MAP) Pulse Ox O2 Delivery O2 Flow Rate FiO2 08/24/17 11:19 97.5 110 20 138/95 98 97.5 08/24/17 09:25 100 160/78 08/24/17 08:00 97.8 100 20 160/78 98 97.8 08/24/17 04:00 97.4 108 20 146/85 95 97.4 08/24/17 00:00 97.4 104 20 143/70 96 Room Air 97.4 08/23/17 20:43 95 Room Air 21 08/23/17 20:43 Room Air 21 08/23/17 20:43 105 18 Room Air 21 08/23/17 20:00 98.5 101 20 127/75 93 Room Air 98.5 08/23/17 16:00 97.6 62 20 161/96 98 Room Air 97.6 08/23/17 15:50 99.4 Intake and Output 08/23/17 08/24/17 19:00 07:00 Intake Total 150 ml 637.5 ml Output Total 550 ml 500 ml Balance -400 ml 137.5 ml Intake Oral 100 ml IV Total 50 ml 637.5 ml Output Urine Total 550 ml 500 ml # Voids 3 # Bowel Movements 1 Laboratory Tests 08/23/17 23:50: Urine Color Yellow, Urine Appearance Clear, Urine pH 6.5, Urine Specific [place] 1.010, Urine Protein 1+H, Urine Glucose (UA) Negative, Urine Ketones Negative, Urine Occult Blood 4+H, Urine Nitrite Negative, Urine Bilirubin Negative, Urine Urobilinogen 12H, Urine Leukocyte Esterase Negative, Urine RBC TntcH, Urine WBC 2-4, Urine Squamous Epithelial Cells Few, Urine Bacteria Few 08/24/17 05:40: White Blood Count 6.6, Red Blood Count 4.77, Hemoglobin 14.0L, Hematocrit 42.0, Mean Corpuscular Volume 88, Mean Corpuscular Hemoglobin 29.4, Mean Corpuscular Hemoglobin Concent 33.4, Red Cell Distribution Width 13.7, Platelet Count 93L, Mean Platelet Volume 7.0, Neutrophils (%) (Auto) , Lymphocytes (%) (Auto) , Monocytes (%) (Auto) , Eosinophils (%) (Auto) , Basophils (%) (Auto) , Differential Total Cells Counted 100, Neutrophils % (Manual) 54, Lymphocytes % ( Manual) 32, Monocytes % (Manual) 14H, Eosinophils % (Manual) 0, Basophils % ( Manual) 0, Band Neutrophils 0, Platelet Estimate DecreasedL, Platelet Morphology Normal, Red Blood Cell Morphology Normal, Sodium Level 137, Potassium Level 2.4*L, Chloride Level 97L, Carbon Dioxide Level 32, Anion Gap 7 , Blood Urea Nitrogen 3L, Creatinine 0.5L, Estimat Glomerular Filtration Rate > 60, Glucose Level 97, Calcium Level 8.6, Total Bilirubin 1.0, Aspartate Amino Transf (AST/SGOT) 31, Alanine Aminotransferase (ALT/SGPT) 19, Alkaline Phosphatase 81, C-Reactive Protein, Quantitative 5.2H, Total Protein 6.8, Albumin 2.7L, Globulin 4.1, Albumin/Globulin Ratio 0.7L, Amylase Level 57, Lipase 130 Height (Feet): 5 Height (Inches): 10.00 Weight (Pounds): 170 Josefina Spencer M.D. Aug 24, 2017 15:20
--- NOTE | 2017-08-24 15:51 | Diagnostic Imaging Report ---
Indication: Dyspnea Technique: XRAY Chest 1v Comparison: 08/21/2017 Findings: Heart size and mediastinal contours are stable. Patient again noted to be status post median sternotomy. Right arm PICC line unchanged. There is patchy atelectasis at the left base. A trace left pleural effusion is not excluded. Slight prominence of the lung markings may be exaggerated due to low lung volumes. No pneumothorax. This structure stable. IMPRESSION: Patchy atelectasis at the left base and question trace left pleural effusion. Question mild interstitial edema/fluid overload, possibly artifactually exaggerated due to low lung volumes. Clinical correlation and follow-up exam recommended.
[2017-08-24 16:00] VITALS: BP 139/94
--- NOTE | 2017-08-24 16:08 | Diagnostic Imaging Report ---
Indication: Seizures Technique: Continuous helical CT scanning of the head was performed utilizing automated exposure control without intravenous contrast material. Axial and coronal reconstructions were obtained. IV contrast was administered and subsequent axial images were obtained. Coronal and sagittal reformats were made. Comparison: Noncontrast CT head 01/11/2016 CT dose: Total DLP 3591.25 mGycm; CTDI vol 70.38,70.38,70.38 mGy Findings: There is extensive encephalomalacia involving the right temporal, parietal and posterior frontal lobes. This is unchanged compared to the prior exam and likely sequela of remote infarct. Encephalomalacia in the bilateral inferior frontal lobes also unchanged and possibly related to prior ischemia or trauma. There is unchanged ex vacuo dilatation of the ventricles. The size and configuration of the ventricular system is stable compared to the prior exam. There is parenchymal volume loss compatible with atrophy and periventricular hypoattenuation consistent with sequela of chronic microvascular ischemia. There is no acute intracranial hemorrhage. No midline shift or CT evidence of acute infarct. There is no definite focus of abnormal postcontrast enhancement. [place] appears patent. Please note that this exam is not protocols for evaluation of the vascular structures. There is unchanged hyperpneumatization of the left mastoid air cells relative to the right. No new mastoid opacification is seen. There is very mild mucosal thickening in some ethmoid air cells. Remainder the visualized paranasal sinuses are clear. There is no depressed calvarial fracture. There is unchanged bilateral parietal scalp thickening. Visualized portions of the orbits grossly unremarkable. IMPRESSION: No evidence of acute intracranial hemorrhage, midline shift or mass effect. No abnormal postcontrast enhancement. MRI may be obtained for more sensitive evaluation as clinically indicated. Extensive encephalomalacia in the right frontal, parietal and temporal lobes unchanged from the prior exam and likely related to sequela of remote ischemia. Atrophy and nonspecific periventricular hypoattenuation suggestive of chronic ischemic microvascular changes. The CT scanner at [facility] is accredited by the [employer] and the scans are performed using protocols designed to limit radiation exposure to as low as reasonably achievable to attain images of sufficient resolution adequate for diagnostic evaluation.
[2017-08-24 20:00] VITALS: BP 140/69
[2017-08-24] MEDS: Dyna-Hex 2% Top Sol 2oz TOPIC SCH (20:45)
[2017-08-24] MEDS: Atorvastatin 20mg tab ORAL SCH (20:46)
[2017-08-24] MEDS ORDERED: Zolpidem 5mg tab ORAL PRN (21:00)
--- NOTE | 2017-08-24 22:34 | Wound Care Consultation ---
Wound Assessment Wound Assessment #1: Wound Number: 1 Wound Present on Admission: No New Wound: Yes Status Change of Wound: No Wound Location Body Site Modif: mid, upper Wound Location Body Site: sacral Wound Type: pressure ulcer Fawn Test: Does not Fawn Pressure Ulcer Stage: Deep Tissue Injury Wound Thickness: Full Thickness Wound Length: 2.0 Wound Width: 2.0 Wound Depth: utd Percent of Wound Purple/Maroon: 100 Wound Drainage Amount: None Wound Drainage Odor: None/Absent Tissue Surrounding Wound: Erythemic Wound General Appearance: Reddened - maroon Wound Assessment #2: Wound Number: 2 Wound Present on Admission: No New Wound: Yes Status Change of Wound: No Wound Location Body Site Modif: left, lateral Wound Location Body Site: thigh Wound Type: traumatic injury Fawn Test: Does not Fawn Traumatic Injury Wounds: Skin Tear Wound Thickness: Partial Thickness Wound Length: 7.0 Wound Width: 3.5 Wound Depth: less than 0.1 Percent of Wound [place]/Red: 100 Wound Drainage Description: Serosanguineous Wound Drainage Amount: Scant Wound Drainage Odor: None/Absent Tissue Surrounding Wound: Intact Wound General Appearance: Reddened, Draining Wound Assessment #3: Wound Number: 3 Wound Present on Admission: No New Wound: Yes Status Change of Wound: No Wound Location Body Site Modif: right Wound Location Body Site: elbow Wound Type: traumatic injury Fawn Test: Does not Fawn Traumatic Injury Wounds: Skin Tear Wound Thickness: Partial Thickness Wound Length: 2.0 Wound Width: 3.0 Wound Depth: less than 0.1 Percent of Wound [place]/Red: 100 Wound Drainage Description: Serosanguineous Wound Drainage Amount: Scant Wound Drainage Odor: None/Absent Tissue Surrounding Wound: Intact Wound General Appearance: Reddened, Draining Wound Comment #1 Left lateral thigh skin tear #2 Upper mid sacral area DTI pressure ulcer #3 Right elbow skin tear Recommendation -Local wound care per protocol -Keep clean and dry -Turn and reposition -Offload both heels -Heel protector on both heels -Low air loss mattress -Optimize nutrition -Assess and f/u accordingly for any changes ELIDA WELCH RN Aug 24, 2017 22:34
[2017-08-25] VITALS: BP 113/92
[2017-08-25 04:00] VITALS: BP 135/76
[2017-08-25] MEDS: Piperacillin/Tazobactam 3.375 GM in D5W 110 ML IVPB SCH ×3 (05:43→21:41)
--- NOTE | 2017-08-25 07:13 | Pulmonology Progress Note ---
Assessment/Plan Assessment/Plan ASSESSMENT Acute toxic metabolic encephalopathy 2 to seizure Breakthrough seizure with hx of chronic seizure disorder hx of large R MCA CVA hypokalemia , probably due to urine loss hematuria UTI with Proteus fevers dementia with behavioral disturbances HTN encephalopathy possible bipolar disorder PLAN OF CARE MS s/p gentle IVF urine cx + Proteus, abx ID follows blood cx prel negative, influenza screen -negative CXR 08/21 - R base atelectasis, no acute process intermittent fevers Seizure precautions Keppra and Depakote Ativan prn for breakthrough seizures Neuro eval appreciated DVT prophylaxis when more awake was started on diet swallow eval noted diet as per ST recs with asp precautions CT head 08/24 no acute IC pathology, + Extensive encephalomalacia O2 titrate to keep pulse ox above 92% pulm toilet Home meds resumed, including ASA and statin replace lytes: 40 K phosphate IV and 40 KCL via GT, check lytes in am nephro eval appreciated renal parameters stable off heparin due to hematuria, but possibly due to UTI hematuria resolved, likely was due to UTI venous Duplex BLE with chronic thrombus LLE, no acute DVT SCD HH stable renal parameters stable bowel regimen psych eval appreciated monitor BP, increase dose of Norvasc , continue Clonidine prn , DNR/DNI status case discussed and evaluated by supervising physician Subjective Allergies: Coded Allergies: No Known Allergies (Unverified , 01/11/16) Subjective intermittent fevers. persistently low K and low P no seizure activity BP better Objective Last 24 Hour Vital Signs Date Time Temp Pulse Resp B/P (MAP) Pulse Ox O2 Delivery O2 Flow Rate FiO2 08/25/17 04:00 98.6 100 20 135/76 98 Room Air 98.6 08/25/17 00:00 99.5 125 20 113/92 90 99.5 08/24/17 20:00 98.9 122 20 140/69 95 98.9 08/24/17 19:07 102 20 Room Air 21 08/24/17 19:07 94 Room Air 21 08/24/17 19:07 Room Air 21 08/24/17 17:17 100 139/94 08/24/17 16:00 97.5 100 20 139/94 98 97.5 08/24/17 11:19 97.5 110 20 138/95 98 97.5 3/30/18 09:25 100 160/78 08/24/17 08:00 97.8 100 20 160/78 98 97.8 Intake and Output 08/24/17 08/25/17 19:00 07:00 Intake Total 600 ml 137.5 ml Output Total 650 ml Balance 600 ml -512.5 ml Intake Oral 600 ml IV Total 137.5 ml Output Urine Total 650 ml # Voids 2 Objective General Appearance: no acute distress; O2 via NC Respiratory/Chest: no respiratory distress, no accessory muscle use Cardiovascular: normal rate , regular , RUE PICC intact Abdomen: normal bowel sounds, soft, non tender, non distended Neurologic/Psychiatric: abnormal gait, alert, restless Microbiology Date/Time Source Procedure Growth Status 08/23/17 00:01 Nasopharynx Influenza Types A,B Antigen (COOPER) - Final Complete Laboratory Tests 08/24/17 16:00: Urine Potassium Timed 28 08/25/17 04:00: Urine Random Sodium 126H Current Medications Medications (Trade) Dose Ordered Sig/Andra Route PRN Reason Start Time Stop Time Status Last Admin Dose Admin Acetaminophen (Tylenol) 650 mg Q4H PRN ORAL fever 08/20/17 19:30 09/15/17 23:29 08/23/17 14:51 Albuterol/ Ipratropium (Albuterol/ Ipratropium) 3 ml Q4H PRN HHN sob 08/24/17 11:00 08/29/17 10:59 Amlodipine Besylate (Norvasc) 5 mg BID ORAL 08/24/17 18:00 09/18/17 11:14 08/24/17 17:17 Aspirin (ASA) 325 mg DAILY ORAL 08/21/17 09:00 09/16/17 08:59 08/24/17 09:25 Atorvastatin Calcium (Lipitor) 20 mg BEDTIME ORAL 08/20/17 21:00 09/16/17 20:59 08/24/17 20:46 Chlorhexidine Gluconate ([place]-Hex 2%) 1 applic DAILY@1999 TOPIC 08/20/17 20:00 09/16/17 19:59 08/24/17 20:45 Clonidine HCl (Catapres Tab) 0.1 mg EVERY 6 HOURS PRN ORAL For High Blood Pressure 08/20/17 19:32 09/19/17 19:31 08/23/17 14:51 Dextrose (Dextrose 50%) STAT PRN IV Hypoglycemia 08/20/17 19:32 09/15/17 19:31 Divalproex Sodium (Depakote Sprinkles) 500 mg Q12HR ORAL 08/21/17 09:00 09/20/17 08:59 08/24/17 20:46 Docusate Sodium (Colace) 100 mg TWICE A DAY NG 08/21/17 18:00 09/20/17 17:59 08/24/17 17:17 Levetiracetam (Keppra) 1,000 mg DAILY ORAL 08/21/17 09:00 09/16/17 08:59 08/24/17 09:25 Lorazepam (Ativan 2mg/ml 1ml) 1 mg Q4H PRN IV For agitation 08/20/17 19:34 08/25/17 19:33 Ondansetron HCl (Zofran) 4 mg Q6H PRN IVP Nausea & Vomiting 08/20/17 19:33 09/15/17 19:32 Piperacillin Sod/ Tazobactam Sod 3.375 gm/Dextrose 110 ml @ 27.5 mls/hr EVERY 8 HOURS IVPB 08/21/17 14:00 08/28/17 13:59 08/25/17 05:43 Polyethylene Glycol (Miralax) 17 gm HSPRN PRN ORAL Constipation 08/20/17 19:33 09/15/17 19:32 08/21/17 12:18 Potassium Chloride (K-Dur) 40 meq TWICE A DAY ORAL 08/24/17 14:00 09/23/17 13:59 08/24/17 17:17 Zolpidem Tartrate (Ambien) 5 mg HSPRN PRN ORAL Insomnia 08/24/17 21:00 08/27/17 20:59 Liliana Shannon NP ([facility]) Aug 25, 2017 07:13
[2017-08-25] MEDS ORDERED: LORazepam Inj 2mg/ml 1ml IV PRN (07:34)
[2017-08-25 07:36] LABS: BASOPHILS % (AUTO) 0.5 % (0.0-2.0); EOSINOPHILS % (AUTO) 1.7 % (0.0-3.0); HEMATOCRIT 47.4 % (42.0-52.0); HEMOGLOBIN 15.8 G/DL (14.2-18.0); LYMPHOCYTES % (AUTO) 25.6 % (20.0-45.0); MEAN CORPUSCULAR VOLUME 88 FL (80-99); MONOCYTES % (AUTO) 17.3 % (1.0-10.0); NEUTROPHILS % (AUTO) 54.9 % (45.0-75.0); PLATELET COUNT 117 K/UL (150-450); RED BLOOD COUNT 5.37 M/UL (4.70-6.10); RED CELL DISTRIBUTION WIDTH 13.3 % (11.6-14.8); WHITE BLOOD COUNT 7.4 K/UL (4.8-10.8)
[2017-08-25 08:00] VITALS: BP 134/80
[2017-08-25 08:12] LABS: ALANINE AMINOTRANSFERASE 22 U/L (12-78); ALBUMIN 2.9 G/DL (3.4-5.0); ALBUMIN/GLOBULIN RATIO 0.7 (1.0-2.7); ALKALINE PHOSPHATASE 81 U/L (46-116); ANION GAP 8 mmol/L (5-15); ASPARTATE AMINO TRANSFERASE 37 U/L (15-37); BILIRUBIN,TOTAL 0.8 MG/DL (0.2-1.0); BLOOD UREA NITROGEN 3 mg/dL (7-18); CARBON DIOXIDE 32 MMOL/L (21-32); CHLORIDE 105 MMOL/L (98-107); CHOLESTEROL 132 MG/DL (< 200); CREATININE 0.5 MG/DL (0.55-1.30); HDL CHOLESTEROL 33 MG/DL (40-60); SODIUM 144 MMOL/L (136-145); TRIGLYCERIDES 89 MG/DL (30-150)
[2017-08-25 08:14] LABS: % IRON SATURATION 14 % (15-50); IRON 39 ug/dL (50-175); TOTAL IRON BINDING CAPACITY 280 ug/dL (250-450)
[2017-08-25 08:15] LABS: CREATINE KINASE 156 U/L (26-308); FERRITIN 386 NG/ML (8-388); GAMMA GLUTAMYL TRANSPEPTIDASE 57 U/L (5-85); PHOSPHORUS 1.8 MG/DL (2.5-4.9); POTASSIUM 2.6 MMOL/L (3.5-5.1)
[2017-08-25] MEDS: Depakote 125mg Sprinkles ORAL SCH ×2 (09:40→21:40)
[2017-08-25] MEDS: Docusate 100mg/10ml Liq NG SCH ×2 (09:40→17:23)
[2017-08-25] MEDS: levETIRAcetam 500mg/5ml Liquid ORAL SCH (09:41)
[2017-08-25] MEDS ORDERED: Potassium Phosphate 30 MM in NS 275 ML IVPB ONE (10:45)
--- NOTE | 2017-08-25 10:51 | Nephrology Progress Note ---
Assessment/Plan Problem List: (1) Hypokalemia Assessment Acute toxic metabolic encephalopathy 2 to seizure Breakthrough seizure with hx of chronic seizure disorder hx of large R MCA CVA hypokalemia likely loss from urine hematuria UTI with Proteus fevers dementia with behavioral disturbances HTN encephalopathy possible bipolar disorder Plan Plan: K IV & PO PO Aldactone U K Subjective ROS Limited/Unobtainable: No Objective Objective Last 24 Hour Vital Signs Date Time Temp Pulse Resp B/P (MAP) Pulse Ox O2 Delivery O2 Flow Rate FiO2 08/25/17 09:40 89 134/80 08/25/17 08:00 98.0 89 17 134/80 98 Room Air 98.0 08/25/17 07:40 98 Room Air 21 08/25/17 07:40 Room Air 08/25/17 07:40 89 20 Room Air 21 08/25/17 04:00 98.6 100 20 135/76 98 Room Air 98.6 08/25/17 00:00 99.5 125 20 113/92 90 99.5 08/24/17 20:00 98.9 122 20 140/69 95 98.9 08/24/17 19:07 102 20 Room Air 21 08/24/17 19:07 94 Room Air 21 08/24/17 19:07 Room Air 21 08/24/17 17:17 100 139/94 08/24/17 16:00 97.5 100 20 139/94 98 97.5 08/24/17 11:19 97.5 110 20 138/95 98 97.5 Intake and Output 08/24/17 08/25/17 19:00 07:00 Intake Total 600 ml 137.5 ml Output Total 650 ml Balance 600 ml -512.5 ml Intake Oral 600 ml IV Total 137.5 ml Output Urine Total 650 ml # Voids 2 Laboratory Tests 08/24/17 16:00: Urine Potassium Timed 28 08/25/17 04:00: Urine Random Sodium 126H 08/25/17 06:40: White Blood Count 7.4, Red Blood Count 5.37, Hemoglobin 15.8, Hematocrit 47.4, Mean Corpuscular Volume 88, Mean Corpuscular Hemoglobin 29.4, Mean Corpuscular Hemoglobin Concent 33.4, Red Cell Distribution Width 13.3, Platelet Count 117L, Mean Platelet Volume 8.5, Neutrophils (%) (Auto) 54.9, Lymphocytes (%) (Auto) 25.6, Monocytes (%) (Auto) 17.3H, Eosinophils (%) (Auto) 1.7, Basophils (%) ( Auto) 0.5, Sodium Level 144, Potassium Level 2.6*L, Chloride Level 105, Carbon Dioxide Level 32, Anion Gap 8, Blood Urea Nitrogen 3L, Creatinine 0.5L, Estimat Glomerular Filtration Rate > 60, Glucose Level 99, Uric Acid 1.8L, Calcium Level 9.0, Phosphorus Level 1.8L, Magnesium Level 1.8, Iron Level 39L, Total Iron Binding Capacity 280, Percent Iron Saturation 14L, Unsaturated Iron Binding 241, Ferritin 386, Total Bilirubin 0.8, Gamma Glutamyl Transpeptidase 57 , Aspartate Amino Transf (AST/SGOT) 37, Alanine Aminotransferase (ALT/SGPT) 22, Alkaline Phosphatase 81, Total Creatine Kinase 156, Pro-B-Type Natriuretic Peptide 769H, Total Protein 7.3, Albumin 2.9L, Globulin 4.4, Albumin/Globulin Ratio 0.7L, Triglycerides Level 89, Cholesterol Level 132, LDL Cholesterol 85, HDL Cholesterol 33L, Cholesterol/HDL Ratio 4.0, Lipase 150, Vitamin B12 Level 1200H, Folate 10.6, Thyroid Stimulating Hormone (TSH) 0.947, Valproic Acid ( Depakene) Level 105H Height (Feet): 5 Height (Inches): 10.00 Weight (Pounds): 170 General Appearance: no apparent distress SHANICE GRIGSBY Aug 25, 2017 10:51
[2017-08-25] MEDS ORDERED: Spironolactone 50mg tab ORAL ONE (11:15)
[2017-08-25 12:00] VITALS: BP 130/81
[2017-08-25] MEDS ORDERED: SODIUM CHLORIDE IV ONE (12:00)
[2017-08-25] MEDS ORDERED: POTASSIUM PHOSPHATE IV ONE (12:00)
[2017-08-25] MEDS ORDERED: Potassium Chloride 40 MEQ in Sodium Chloride 500ML 550 ML IVPB ONE ×2 (15:00→19:00)
[2017-08-25 16:00] VITALS: BP 152/70
--- NOTE | 2017-08-25 19:28 | Infectious Diseases Prog Note ---
Assessment/Plan Assessment/Plan Assessment: Fever, SP ESBL UTI- r/o bacteremia, pancreatitis, cholecysitis, DVT, pna; r/o intracranial process -08/19 u/a wbc 5-10, nit +, leuk +2; ucx >100K P. mirabilis, ESBL (S Genta, Zosyn, Bactrim, Ertapenem); repeat u/a 08/21 wbc tntc, nit-, leuk +1; ucx p -Bcx 08/21 NTD -CXr 08/21: Right basilar atelectasis. No acute process otherwise. PICC -CXr 08/16 no acute disease -no leukocytosis -influenza sc neg -V. duplex: RIGHT LEG:No DVT; L leg: No acute DVT. recanalized chronic thrombus in the superficial femoral vein. Seizure disorder with seizure episode upon admission CT: -f/u Head CT w/wo No evidence of acute intracranial hemorrhage, midline shift or mass effect Large R MCA stroke CAD HLD HTN schizoaffective disorder [place] resident NKDA DNR Plan: -Continue Zosyn # 5 / ESBL UTI (Ertapenem has drug interaction with valproic acid reducing levels ~66%) -08/20 SP Ceftriaxone x1 -f/u Repeat 2 sets Bcx, Ucx,CXR -f/u cx -Monitor CBC/BMP, temperatures -aspiration precautions Subjective Constitutional: Denies: no symptoms, fever, chills, fatigue, anorexia, drenching sweats, other Allergies: Coded Allergies: No Known Allergies (Unverified , 01/11/16) Objective Vital Signs Last 24 Hour Vital Signs Date Time Temp Pulse Resp B/P (MAP) Pulse Ox O2 Delivery O2 Flow Rate FiO2 08/25/17 17:23 99 152/70 08/25/17 16:00 97.8 99 17 152/70 98 Room Air 97.8 08/25/17 12:00 98.6 82 18 130/81 97 Room Air 98.6 08/25/17 09:40 89 134/80 08/25/17 08:00 98.0 89 17 134/80 98 Room Air 98.0 08/25/17 07:40 98 Room Air 21 08/25/17 07:40 Room Air 08/25/17 07:40 89 20 Room Air 21 08/25/17 04:00 98.6 100 20 135/76 98 Room Air 98.6 08/25/17 00:00 99.5 125 20 113/92 90 99.5 08/24/17 20:00 98.9 122 20 140/69 95 98.9 Height (Feet): 5 Height (Inches): 10.00 Weight (Pounds): 170 Breasts: no masses Cardiovascular: regularly irregular Abdomen: normal bowel sounds Microbiology Date/Time Source Procedure Growth Status 08/23/17 21:30 Blood Blood Culture - Preliminary NO GROWTH AFTER 24 HOURS Resulted 08/23/17 21:15 Blood Blood Culture - Preliminary NO GROWTH AFTER 24 HOURS Resulted 08/23/17 00:01 Nasopharynx Influenza Types A,B Antigen (COOPER) - Final Complete Laboratory Tests Test 08/25/17 04:00 08/25/17 06:40 08/25/17 11:30 Urine Random Sodium 126 mmol/L (20-110) H White Blood Count 7.4 K/UL (4.8-10.8) Red Blood Count 5.37 M/UL (4.70-6.10) Hemoglobin 15.8 G/DL (14.2-18.0) Hematocrit 47.4 % (42.0-52.0) Mean Corpuscular Volume 88 FL (80-99) Mean Corpuscular Hemoglobin 29.4 PG (27.0-31.0) Mean Corpuscular Hemoglobin Concent 33.4 G/DL (32.0-36.0) Red Cell Distribution Width 13.3 % (11.6-14.8) Platelet Count 117 K/UL (150-450) L Mean Platelet Volume 8.5 FL (6.5-10.1) Neutrophils (%) (Auto) 54.9 % (45.0-75.0) Lymphocytes (%) (Auto) 25.6 % (20.0-45.0) Monocytes (%) (Auto) 17.3 % (1.0-10.0) H Eosinophils (%) (Auto) 1.7 % (0.0-3.0) Basophils (%) (Auto) 0.5 % (0.0-2.0) Sodium Level 144 MMOL/L (136-145) Potassium Level 2.6 MMOL/L (3.5-5.1) *L 2.9 MMOL/L (3.5-5.1) L Chloride Level 105 MMOL/L (98-107) Carbon Dioxide Level 32 MMOL/L (21-32) Anion Gap 8 mmol/L (5-15) Blood Urea Nitrogen 3 mg/dL (7-18) L Creatinine 0.5 MG/DL (0.55-1.30) L Estimat Glomerular Filtration Rate > 60 mL/min (>60) Glucose Level 99 MG/DL (74-106) Uric Acid 1.8 MG/DL (2.6-7.2) L Calcium Level 9.0 MG/DL (8.5-10.1) Phosphorus Level 1.8 MG/DL (2.5-4.9) L Magnesium Level 1.8 MG/DL (1.8-2.4) Iron Level 39 ug/dL (50-175) L Total Iron Binding Capacity 280 ug/dL (250-450) Percent Iron Saturation 14 % (15-50) L Unsaturated Iron Binding 241 ug/dL (112-346) Ferritin 386 NG/ML (8-388) Total Bilirubin 0.8 MG/DL (0.2-1.0) Gamma Glutamyl Transpeptidase 57 U/L (5-85) Aspartate Amino Transf (AST/SGOT) 37 U/L (15-37) Alanine Aminotransferase (ALT/SGPT) 22 U/L (12-78) Alkaline Phosphatase 81 U/L (46-116) Total Creatine Kinase 156 U/L (26-308) Pro-B-Type Natriuretic Peptide 769 pg/mL (0-125) H Total Protein 7.3 G/DL (6.4-8.2) Albumin 2.9 G/DL (3.4-5.0) L Globulin 4.4 g/dL Albumin/Globulin Ratio 0.7 (1.0-2.7) L Triglycerides Level 89 MG/DL (30-150) Cholesterol Level 132 MG/DL (< 200) LDL Cholesterol 85 mg/dL (<100) HDL Cholesterol 33 MG/DL (40-60) L Cholesterol/HDL Ratio 4.0 (3.3-4.4) Lipase 150 U/L (73-393) Vitamin B12 Level 1200 PG/ML (193-986) H Folate 10.6 NG/ML (8.6-58.9) Thyroid Stimulating Hormone (TSH) 0.947 uiU/mL (0.358-3.740) Valproic Acid (Depakene) Level 105 MCG/ML (50-100) H Current Medications Medications (Trade) Dose Ordered Sig/Andra Route PRN Reason Start Time Stop Time Status Last Admin Dose Admin Acetaminophen (Tylenol) 650 mg Q4H PRN ORAL fever 08/20/17 19:30 09/15/17 23:29 08/23/17 14:51 Albuterol/ Ipratropium (Albuterol/ Ipratropium) 3 ml Q4H PRN HHN sob 08/24/17 11:00 08/29/17 10:59 Amlodipine Besylate (Norvasc) 5 mg BID ORAL 08/24/17 18:00 09/18/17 11:14 08/25/17 17:23 Aspirin (ASA) 325 mg DAILY ORAL 08/21/17 09:00 09/16/17 08:59 08/25/17 09:40 Atorvastatin Calcium (Lipitor) 20 mg BEDTIME ORAL 08/20/17 21:00 09/16/17 20:59 08/24/17 20:46 Chlorhexidine Gluconate ([place]-Hex 2%) 1 applic DAILY@2000 TOPIC 08/20/17 20:00 09/16/17 19:59 08/24/17 20:45 Clonidine HCl (Catapres Tab) 0.1 mg EVERY 6 HOURS PRN ORAL For High Blood Pressure 08/20/17 19:32 09/19/17 19:31 08/23/17 14:51 Dextrose (Dextrose 50%) STAT PRN IV Hypoglycemia 08/20/17 19:32 09/15/17 19:31 Divalproex Sodium (Depakote Sprinkles) 500 mg Q12HR ORAL 08/21/17 09:00 09/20/17 08:59 08/25/17 09:40 Docusate Sodium (Colace) 100 mg TWICE A DAY NG 08/21/17 18:00 09/20/17 17:59 08/25/17 17:23 Levetiracetam (Keppra) 1,000 mg DAILY ORAL 08/21/17 09:00 09/16/17 08:59 08/25/17 09:41 Lorazepam (Ativan 2mg/ml 1ml) 1 mg Q4H PRN IV For agitation 08/25/17 07:34 08/30/17 07:33 Ondansetron HCl (Zofran) 4 mg Q6H PRN IVP Nausea & Vomiting 08/20/17 19:33 09/15/17 19:32 Piperacillin Sod/ Tazobactam Sod 3.375 gm/Dextrose 110 ml @ 27.5 mls/hr EVERY 8 HOURS IVPB 08/21/17 14:00 08/28/17 13:59 08/25/17 13:37 Polyethylene Glycol (Miralax) 17 gm HSPRN PRN ORAL Constipation 08/20/17 19:33 09/15/17 19:32 08/21/17 12:18 Potassium Chloride 40 meq/ Sodium Chloride 570 ml @ 142.5 mls/ hr ONCE ONCE IVPB 08/25/17 19:00 08/25/17 22:59 08/25/17 18:42 Potassium Chloride (K-Dur) 40 meq TID ORAL 08/25/17 13:00 09/24/17 17:59 08/25/17 17:23 Spironolactone (Aldactone) 25 mg EVERY 12 HOURS ORAL 08/25/17 21:00 09/24/17 20:59 Zolpidem Tartrate (Ambien) 5 mg HSPRN PRN ORAL Insomnia 08/24/17 21:00 08/27/17 20:59 Anthony Marino MD Aug 25, 2017 19:28
[2017-08-25 20:00] VITALS: BP 134/99
[2017-08-25] MEDS: Dyna-Hex 2% Top Sol 2oz TOPIC SCH (21:40)
[2017-08-25] MEDS: Spironolactone 25mg tab ORAL SCH (21:40)
[2017-08-25] MEDS: Atorvastatin 20mg tab ORAL SCH (21:41)
[2017-08-26] VITALS (7 sets, daily range): BP systolic 97–171; BP diastolic 57–96
[2017-08-26] MEDS: Piperacillin/Tazobactam 3.375 GM in D5W 110 ML IVPB SCH ×3 (05:30→21:58)
[2017-08-26 06:49] LABS: BASOPHILS % (AUTO) 0.4 % (0.0-2.0); HEMATOCRIT 44.2 % (42.0-52.0); LYMPHOCYTES % (AUTO) 22.3 % (20.0-45.0); MEAN CORPUSCULAR VOLUME 89 FL (80-99); MONOCYTES % (AUTO) 11.6 % (1.0-10.0); NEUTROPHILS % (AUTO) 64.6 % (45.0-75.0); PLATELET COUNT 134 K/UL (150-450); RED BLOOD COUNT 4.96 M/UL (4.70-6.10); RED CELL DISTRIBUTION WIDTH 13.7 % (11.6-14.8); WHITE BLOOD COUNT 9.2 K/UL (4.8-10.8)
[2017-08-26 06:57] LABS: ALANINE AMINOTRANSFERASE 21 U/L (12-78); ALBUMIN 2.7 G/DL (3.4-5.0); ALKALINE PHOSPHATASE 79 U/L (46-116); ASPARTATE AMINO TRANSFERASE 38 U/L (15-37); BILIRUBIN,DIRECT 0.3 MG/DL (0.0-0.3); BILIRUBIN,TOTAL 0.7 MG/DL (0.2-1.0)
[2017-08-26 07:42] LABS: ANION GAP 10 mmol/L (5-15); BLOOD UREA NITROGEN 4 mg/dL (7-18); CALCIUM 9.1 MG/DL (8.5-10.1); CARBON DIOXIDE 26 MMOL/L (21-32); CHLORIDE 111 MMOL/L (98-107); CREATININE 0.5 MG/DL (0.55-1.30); PHOSPHORUS 2.1 MG/DL (2.5-4.9); POTASSIUM 3.1 MMOL/L (3.5-5.1); SODIUM 147 MMOL/L (136-145)
[2017-08-26] MEDS ORDERED: Zolpidem 5mg tab ORAL PRN (08:00)
[2017-08-26] MEDS: levETIRAcetam 500mg/5ml Liquid ORAL SCH (08:28)
[2017-08-26] MEDS: Depakote 125mg Sprinkles ORAL SCH ×2 (08:28→21:16)
[2017-08-26] MEDS: Spironolactone 25mg tab ORAL SCH (08:28)
[2017-08-26] MEDS: Docusate 100mg/10ml Liq NG SCH ×3 (08:28→17:28)
--- NOTE | 2017-08-26 09:24 | Pulmonology Progress Note ---
Assessment/Plan Assessment/Plan ASSESSMENT Acute toxic metabolic encephalopathy 2 to seizure Breakthrough seizure with hx of chronic seizure disorder hx of large R MCA CVA hypokalemia , probably due to urine loss e/lyte imbalance : hypo P hypo Mg hematuria -resolved UTI with Proteus fevers dementia with behavioral disturbances HTN encephalopathy possible bipolar disorder dysphagia PLAN OF CARE MS urine cx + Proteus, abx ID follows blood cx prel negative, influenza screen -negative CXR 08/21 - R base atelectasis, no acute process intermittent fevers resoled Seizure precautions Keppra and Depakote Ativan prn for breakthrough seizures Neuro eval appreciated DVT prophylaxis when more awake was started on diet swallow eval noted diet as per ST recs with asp precautions CT head 08/24 no acute IC pathology, + Extensive encephalomalacia O2 titrate to keep pulse ox above 92% pulm toilet Home meds resumed, including ASA and statin replace lytes: 40 K phosphate IV and 40 KCL via GT, check lytes in am nephro eval appreciated renal parameters stable off heparin due to hematuria, but possibly due to UTI hematuria resolved, likely was due to UTI venous Duplex BLE with chronic thrombus LLE, no acute DVT SCD HH stable renal parameters stable bowel regimen psych eval appreciated monitor BP, max dose of Norvasc , add BB , DNR/DNI status case discussed and evaluated by supervising physician Subjective Allergies: Coded Allergies: No Known Allergies (Unverified , 01/11/16) Subjective intermittent fevers resolved tachy persistently low K and low Mg and P no seizure activity BP elevated Objective Last 24 Hour Vital Signs Date Time Temp Pulse Resp B/P (MAP) Pulse Ox O2 Delivery O2 Flow Rate FiO2 08/26/17 08:29 115 171/96 08/26/17 08:29 171/96 08/26/17 08:00 97.4 115 20 171/96 96 97.4 08/26/17 07:31 Room Air 21 08/26/17 07:31 113 20 Room Air 21 08/26/17 07:31 94 Room Air 21 08/26/17 04:00 97.3 112 22 156/93 96 97.3 08/26/17 00:00 97.9 111 20 125/82 96 97.9 08/25/17 21:38 Room Air 21 08/25/17 21:37 93 Room Air 21 08/25/17 21:37 101 22 Room Air 21 08/25/17 20:00 98.6 101 22 134/99 93 98.6 08/25/17 17:23 99 152/70 08/25/17 16:00 97.8 99 17 152/70 98 Room Air 97.8 08/25/17 12:00 98.6 82 18 130/81 97 Room Air 98.6 08/25/17 09:40 89 134/80 Intake and Output 08/25/17 08/26/17 19:00 07:00 Intake Total 1209.66 ml 240 ml Output Total 1100 ml Balance 1209.66 ml -860 ml IV Total 849.66 ml Other 360 ml 240 ml Output Urine Total 1100 ml # Voids 4 Objective General Appearance: no acute distress; O2 via NC Respiratory/Chest: no respiratory distress, no accessory muscle use Cardiovascular: tachy, , RUE PICC intact Abdomen: normal bowel sounds, soft, non tender, non distended Neurologic/Psychiatric: abnormal gait, alert, restless Microbiology Date/Time Source Procedure Growth Status 08/23/17 21:30 Blood Blood Culture - Preliminary NO GROWTH AFTER 48 HOURS Resulted 08/23/17 21:15 Blood Blood Culture - Preliminary NO GROWTH AFTER 48 HOURS Resulted Laboratory Tests 08/25/17 11:30: Potassium Level 2.9L 08/25/17 20:45: Potassium Level 3.8 08/26/17 06:20: Potassium Level 3.1L, White Blood Count 9.2, Red Blood Count 4.96, Hemoglobin 15.0, Hematocrit 44.2, Mean Corpuscular Volume 89, Mean Corpuscular Hemoglobin 30.2, Mean Corpuscular Hemoglobin Concent 33.9, Red Cell Distribution Width 13.7 , Platelet Count 134L, Mean Platelet Volume 7.2, Neutrophils (%) (Auto) 64.6, Lymphocytes (%) (Auto) 22.3, Monocytes (%) (Auto) 11.6H, Eosinophils (%) (Auto) 1.0, Basophils (%) (Auto) 0.4, Sodium Level 147H, Chloride Level 111H, Carbon Dioxide Level 26, Anion Gap 10, Blood Urea Nitrogen 4L, Creatinine 0.5L, Estimat Glomerular Filtration Rate > 60, Glucose Level 102, Uric Acid 1.7L, Calcium Level 9.1, Phosphorus Level 2.1L, Magnesium Level 1.6L, Total Bilirubin 0.7, Direct Bilirubin 0.3, Aspartate Amino Transf (AST/SGOT) 38H, Alanine Aminotransferase (ALT/SGPT) 21, Alkaline Phosphatase 79, Total Protein 7.0, Albumin 2.7L Current Medications Medications (Trade) Dose Ordered Sig/Andra Route PRN Reason Start Time Stop Time Status Last Admin Dose Admin Acetaminophen (Tylenol) 650 mg Q4H PRN ORAL fever 08/20/17 19:30 09/15/17 23:29 08/23/17 14:51 Albuterol/ Ipratropium (Albuterol/ Ipratropium) 3 ml Q4H PRN HHN sob 08/24/17 11:00 08/29/17 10:59 Amlodipine Besylate (Norvasc) 5 mg BID ORAL 08/24/17 18:00 09/18/17 11:14 08/26/17 08:29 Aspirin (ASA) 325 mg DAILY ORAL 08/21/17 09:00 09/16/17 08:59 08/26/17 08:28 Atorvastatin Calcium (Lipitor) 20 mg BEDTIME ORAL 08/20/17 21:00 09/16/17 20:59 08/25/17 21:41 Chlorhexidine Gluconate ([place]-Hex 2%) 1 applic DAILY@1999 TOPIC 08/20/17 20:00 09/16/17 19:59 08/25/17 21:40 Clonidine HCl (Catapres Tab) 0.1 mg EVERY 6 HOURS PRN ORAL For High Blood Pressure 08/20/17 19:32 09/19/17 19:31 08/26/17 08:29 Dextrose (Dextrose 50%) STAT PRN IV Hypoglycemia 08/20/17 19:32 09/15/17 19:31 Divalproex Sodium (Depakote Sprinkles) 500 mg Q12HR ORAL 08/21/17 09:00 09/20/17 08:59 08/26/17 08:28 Docusate Sodium (Colace) 100 mg TWICE A DAY NG 08/21/17 18:00 09/20/17 17:59 08/26/17 08:28 Levetiracetam (Keppra) 1,000 mg DAILY ORAL 08/21/17 09:00 09/16/17 08:59 08/26/17 08:28 Lorazepam (Ativan 2mg/ml 1ml) 1 mg Q4H PRN IV For agitation 08/25/17 07:34 08/30/17 07:33 Magnesium Sulfate 100 ml @ 100 mls/hr Q1H IVPB 08/26/17 09:00 08/26/17 10:59 08/26/17 08:27 Ondansetron HCl (Zofran) 4 mg Q6H PRN IVP Nausea & Vomiting 08/20/17 19:33 09/15/17 19:32 Piperacillin Sod/ Tazobactam Sod 3.375 gm/Dextrose 110 ml @ 27.5 mls/hr EVERY 8 HOURS IVPB 08/21/17 14:00 08/28/17 13:59 08/26/17 05:30 Polyethylene Glycol (Miralax) 17 gm HSPRN PRN ORAL Constipation 08/20/17 19:33 09/15/17 19:32 08/21/17 12:18 Potassium Phosphate 15 mm/ Sodium Chloride 280 ml @ 46.67 mls/ hr ONCE ONCE IV 08/26/17 12:00 08/26/17 17:59 Potassium Chloride (K-Dur) 40 meq TID ORAL 08/25/17 13:00 09/24/17 17:59 08/26/17 08:28 Spironolactone (Aldactone) 25 mg EVERY 12 HOURS ORAL 08/25/17 21:00 09/24/17 20:59 08/26/17 08:28 Zolpidem Tartrate (Ambien) 5 mg HSPRN PRN ORAL Insomnia 08/26/17 08:00 08/29/17 07:59 Liliana Shannon NP ([facility]) Aug 26, 2017 09:24
[2017-08-26] MEDS ORDERED: Metoprolol Succinate XL 25mg tab ORAL SCH (10:00)
[2017-08-26] MEDS ORDERED: Potassium Phosphate 15 MM in NS 275 ML IV ONE (12:00)
--- NOTE | 2017-08-26 13:47 | Nephrology Progress Note ---
Assessment/Plan Problem List: (1) Hypokalemia (2) Uncontrolled seizures Assessment Acute toxic metabolic encephalopathy 2 to seizure Breakthrough seizure with hx of chronic seizure disorder hx of large R MCA CVA hypokalemia likely loss from urine hematuria UTI with Proteus fevers dementia with behavioral disturbances HTN encephalopathy possible bipolar disorder Plan Plan: K , Phos , mag supplement PO Aldactone adjust bp meds per orders Subjective ROS Limited/Unobtainable: No Constitutional: Reports: malaise Objective Objective Last 24 Hour Vital Signs Date Time Temp Pulse Resp B/P (MAP) Pulse Ox O2 Delivery O2 Flow Rate FiO2 08/26/17 12:04 98.2 98 21 117/69 97 Room Air 98.2 08/26/17 10:30 97.6 104 20 120/72 96 97.6 08/26/17 10:00 98 117/69 08/26/17 08:29 115 171/96 08/26/17 08:29 171/96 08/26/17 08:00 97.4 115 20 171/96 96 97.4 08/26/17 07:31 Room Air 21 08/26/17 07:31 113 20 Room Air 21 08/26/17 07:31 94 Room Air 21 08/26/17 04:00 97.3 112 22 156/93 96 97.3 08/26/17 00:00 97.9 111 20 125/82 96 97.9 08/25/17 21:38 Room Air 21 08/25/17 21:37 93 Room Air 21 08/25/17 21:37 101 22 Room Air 21 08/25/17 20:00 98.6 101 22 134/99 93 98.6 08/25/17 17:23 99 152/70 08/25/17 16:00 97.8 99 17 152/70 98 Room Air 97.8 Intake and Output 08/25/17 08/26/17 19:00 07:00 Intake Total 1209.66 ml 240 ml Output Total 1100 ml Balance 1209.66 ml -860 ml IV Total 849.66 ml Other 360 ml 240 ml Output Urine Total 1100 ml # Voids 4 Laboratory Tests 08/25/17 20:45: Potassium Level 3.8 08/26/17 06:20: Potassium Level 3.1L, White Blood Count 9.2, Red Blood Count 4.96, Hemoglobin 15.0, Hematocrit 44.2, Mean Corpuscular Volume 89, Mean Corpuscular Hemoglobin 30.2, Mean Corpuscular Hemoglobin Concent 33.9, Red Cell Distribution Width 13.7 , Platelet Count 134L, Mean Platelet Volume 7.2, Neutrophils (%) (Auto) 64.6, Lymphocytes (%) (Auto) 22.3, Monocytes (%) (Auto) 11.6H, Eosinophils (%) (Auto) 1.0, Basophils (%) (Auto) 0.4, Sodium Level 147H, Chloride Level 111H, Carbon Dioxide Level 26, Anion Gap 10, Blood Urea Nitrogen 4L, Creatinine 0.5L, Estimat Glomerular Filtration Rate > 60, Glucose Level 102, Uric Acid 1.7L, Calcium Level 9.1, Phosphorus Level 2.1L, Magnesium Level 1.6L, Total Bilirubin 0.7, Direct Bilirubin 0.3, Aspartate Amino Transf (AST/SGOT) 38H, Alanine Aminotransferase (ALT/SGPT) 21, Alkaline Phosphatase 79, Total Protein 7.0, Albumin 2.7L Height (Feet): 5 Height (Inches): 10.00 Weight (Pounds): 170 General Appearance: no apparent distress Objective no change SHANICE GRIGSBY Aug 26, 2017 13:47
[2017-08-26] MEDS: dilTIAZem HCl 30mg tab ORAL SCH ×2 (15:47→21:59)
[2017-08-26] MEDS: Phospha 250 Neutral tab ORAL SCH (17:22)
[2017-08-26] MEDS: Spironolactone 50mg tab ORAL SCH (21:15)
[2017-08-26] MEDS: Atorvastatin 20mg tab ORAL SCH (21:15)
[2017-08-26] MEDS: Dyna-Hex 2% Top Sol 2oz TOPIC SCH (21:15)
[2017-08-27] VITALS (7 sets, daily range): BP systolic 93–162; BP diastolic 55–103
[2017-08-27] MEDS: Piperacillin/Tazobactam 3.375 GM in D5W 110 ML IVPB SCH ×3 (05:21→21:15)
[2017-08-27] MEDS: dilTIAZem HCl 30mg tab ORAL SCH ×3 (05:21→21:09)
[2017-08-27 06:33] LABS: BASOPHILS % (AUTO) 0.4 % (0.0-2.0); EOSINOPHILS % (AUTO) 1.9 % (0.0-3.0); HEMATOCRIT 42.8 % (42.0-52.0); LYMPHOCYTES % (AUTO) 22.4 % (20.0-45.0); MEAN CORPUSCULAR VOLUME 90 FL (80-99); MONOCYTES % (AUTO) 9.8 % (1.0-10.0); NEUTROPHILS % (AUTO) 65.5 % (45.0-75.0); PLATELET COUNT 130 K/UL (150-450); RED BLOOD COUNT 4.76 M/UL (4.70-6.10); RED CELL DISTRIBUTION WIDTH 13.8 % (11.6-14.8); WHITE BLOOD COUNT 8.5 K/UL (4.8-10.8)
[2017-08-27 07:37] LABS: ANION GAP 8 mmol/L (5-15); BLOOD UREA NITROGEN 6 mg/dL (7-18); CALCIUM 8.5 MG/DL (8.5-10.1); CARBON DIOXIDE 29 MMOL/L (21-32); CHLORIDE 110 MMOL/L (98-107); CREATININE 0.5 MG/DL (0.55-1.30); PHOSPHORUS 2.5 MG/DL (2.5-4.9); SODIUM 147 MMOL/L (136-145)
[2017-08-27 08:16] LABS: ALANINE AMINOTRANSFERASE 18 U/L (12-78); ALBUMIN 2.8 G/DL (3.4-5.0); ALKALINE PHOSPHATASE 83 U/L (46-116); ASPARTATE AMINO TRANSFERASE 35 U/L (15-37); BILIRUBIN,DIRECT 0.4 MG/DL (0.0-0.3); BILIRUBIN,TOTAL 0.7 MG/DL (0.2-1.0)
[2017-08-27] MEDS: Phospha 250 Neutral tab ORAL SCH ×3 (09:00→17:30)
[2017-08-27] MEDS: Docusate 100mg/10ml Liq NG SCH ×2 (09:52→18:04)
[2017-08-27] MEDS: Depakote 125mg Sprinkles ORAL SCH ×2 (09:52→21:15)
[2017-08-27] MEDS: Metoprolol Succinate XL 50mg tab ORAL SCH (09:53)
[2017-08-27] MEDS: Spironolactone 50mg tab ORAL SCH ×2 (09:54→21:00)
[2017-08-27] MEDS: levETIRAcetam 500mg/5ml Liquid ORAL SCH (09:54)
--- NOTE | 2017-08-27 12:45 | General Progress Note ---
Assessment/Plan Assessment/Plan encephalopathy behavioral issues bipolar d/o? -cont to monitor -Depakote Subjective Date patient seen: Aug 27, 2017 Neurologic/Psychiatric: Reports: anxiety, depressed, emotional problems Allergies: Coded Allergies: No Known Allergies (Unverified , 01/11/16) Subjective the pt is less agitated Objective Last 24 Hour Vital Signs Date Time Temp Pulse Resp B/P (MAP) Pulse Ox O2 Delivery O2 Flow Rate FiO2 08/27/17 12:00 97.6 106 19 124/85 94 Room Air 97.6 08/27/17 09:53 103 114/84 08/27/17 09:12 Room Air 08/27/17 09:11 3 Room Air 21 08/27/17 09:10 103 22 Room Air 21 08/27/17 08:00 97.8 79 20 114/84 95 Room Air 97.8 08/27/17 06:58 152/87 08/27/17 05:21 99 162/91 08/27/17 03:54 98.2 99 20 162/91 96 98.2 08/27/17 00:00 97.2 103 19 123/83 91 97.2 08/26/17 21:59 111 113/83 08/26/17 20:00 97.2 103 19 97/57 98 97.2 08/26/17 19:55 107 20 Room Air 21 08/26/17 19:55 Room Air 21 08/26/17 19:55 95 Room Air 21 08/26/17 16:05 97.1 112 20 119/80 97 Room Air 97.1 08/26/17 15:47 99 119/80 Intake and Output 08/26/17 08/27/17 19:00 07:00 Intake Total 945.85 ml Output Total 600 ml Balance 345.85 ml Intake Oral 120 ml IV Total 825.85 ml Output Urine Total 600 ml # Voids 5 5 # Bowel Movements 1 1 Laboratory Tests 08/27/17 05:50: White Blood Count 8.5, Red Blood Count 4.76, Hemoglobin 14.0L, Hematocrit 42.8, Mean Corpuscular Volume 90, Mean Corpuscular Hemoglobin 29.3, Mean Corpuscular Hemoglobin Concent 32.6, Red Cell Distribution Width 13.8, Platelet Count 130L, Mean Platelet Volume 7.7, Neutrophils (%) (Auto) 65.5, Lymphocytes (%) (Auto) 22.4, Monocytes (%) (Auto) 9.8, Eosinophils (%) (Auto) 1.9, Basophils (%) (Auto ) 0.4, Sodium Level 147H, Potassium Level 3.0L, Chloride Level 110H, Carbon Dioxide Level 29, Anion Gap 8, Blood Urea Nitrogen 6L, Creatinine 0.5L, Estimat Glomerular Filtration Rate > 60, Glucose Level 98, Uric Acid 2.0L, Calcium Level 8.5, Phosphorus Level 2.5, Magnesium Level 2.5H, Total Bilirubin 0.7, Direct Bilirubin 0.4H, Aspartate Amino Transf (AST/SGOT) 35, Alanine Aminotransferase (ALT/SGPT) 18, Alkaline Phosphatase 83, Total Protein 6.3L, Albumin 2.8L Height (Feet): 5 Height (Inches): 10.00 Weight (Pounds): 170 General Appearance: no apparent distress, alert, confused Josefina Spencer M.D. Aug 27, 2017 12:45
--- NOTE | 2017-08-27 12:47 | Geriatric Progress Note ---
Assessment/Plan Assessment/Plan encephalopathy behavioral issues bipolar d/o? -cont to monitor -Depakote Discussed with: patient Subjective Interval Events 08/25/17 the pt is the same confused and agitated at times Mood/Memory: Reports: prior hx, anxiety, depressed feelings, emotional problems Geriatric Geriatric Last 24 Hour Vital Signs Date Time Temp Pulse Resp B/P (MAP) Pulse Ox O2 Delivery O2 Flow Rate FiO2 08/27/17 12:00 97.6 106 19 124/85 94 Room Air 97.6 08/27/17 09:53 103 114/84 08/27/17 09:12 Room Air 08/27/17 09:11 3 Room Air 21 08/27/17 09:10 103 22 Room Air 21 08/27/17 08:00 97.8 79 20 114/84 95 Room Air 97.8 08/27/17 06:58 152/87 08/27/17 05:21 99 162/91 08/27/17 03:54 98.2 99 20 162/91 96 98.2 08/27/17 00:00 97.2 103 19 123/83 91 97.2 08/26/17 21:59 111 113/83 08/26/17 20:00 97.2 103 19 97/57 98 97.2 08/26/17 19:55 107 20 Room Air 21 08/26/17 19:55 Room Air 21 08/26/17 19:55 95 Room Air 21 08/26/17 16:05 97.1 112 20 119/80 97 Room Air 97.1 08/26/17 15:47 99 119/80 Intake and Output 08/26/17 08/27/17 19:00 07:00 Intake Total 945.85 ml Output Total 600 ml Balance 345.85 ml Intake Oral 120 ml IV Total 825.85 ml Output Urine Total 600 ml # Voids 5 5 # Bowel Movements 1 1 Laboratory Tests Test 08/27/17 05:50 White Blood Count 8.5 K/UL (4.8-10.8) Red Blood Count 4.76 M/UL (4.70-6.10) Hemoglobin 14.0 G/DL (14.2-18.0) L Hematocrit 42.8 % (42.0-52.0) Mean Corpuscular Volume 90 FL (80-99) Mean Corpuscular Hemoglobin 29.3 PG (27.0-31.0) Mean Corpuscular Hemoglobin Concent 32.6 G/DL (32.0-36.0) Red Cell Distribution Width 13.8 % (11.6-14.8) Platelet Count 130 K/UL (150-450) L Mean Platelet Volume 7.7 FL (6.5-10.1) Neutrophils (%) (Auto) 65.5 % (45.0-75.0) Lymphocytes (%) (Auto) 22.4 % (20.0-45.0) Monocytes (%) (Auto) 9.8 % (1.0-10.0) Eosinophils (%) (Auto) 1.9 % (0.0-3.0) Basophils (%) (Auto) 0.4 % (0.0-2.0) Sodium Level 147 MMOL/L (136-145) H Potassium Level 3.0 MMOL/L (3.5-5.1) L Chloride Level 110 MMOL/L (98-107) H Carbon Dioxide Level 29 MMOL/L (21-32) Anion Gap 8 mmol/L (5-15) Blood Urea Nitrogen 6 mg/dL (7-18) L Creatinine 0.5 MG/DL (0.55-1.30) L Estimat Glomerular Filtration Rate > 60 mL/min (>60) Glucose Level 98 MG/DL (74-106) Uric Acid 2.0 MG/DL (2.6-7.2) L Calcium Level 8.5 MG/DL (8.5-10.1) Phosphorus Level 2.5 MG/DL (2.5-4.9) Magnesium Level 2.5 MG/DL (1.8-2.4) H Total Bilirubin 0.7 MG/DL (0.2-1.0) Direct Bilirubin 0.4 MG/DL (0.0-0.3) H Aspartate Amino Transf (AST/SGOT) 35 U/L (15-37) Alanine Aminotransferase (ALT/SGPT) 18 U/L (12-78) Alkaline Phosphatase 83 U/L (46-116) Total Protein 6.3 G/DL (6.4-8.2) L Albumin 2.8 G/DL (3.4-5.0) L Current Medications Medications (Trade) Dose Ordered Sig/Andra Route PRN Reason Start Time Stop Time Status Last Admin Dose Admin Acetaminophen (Tylenol) 650 mg Q4H PRN ORAL fever 08/20/17 19:30 09/15/17 23:29 08/23/17 14:51 Albuterol/ Ipratropium (Albuterol/ Ipratropium) 3 ml Q4H PRN HHN sob 08/24/17 11:00 08/29/17 10:59 Aspirin (ASA) 325 mg DAILY ORAL 08/21/17 09:00 09/16/17 08:59 08/27/17 09:53 Atorvastatin Calcium (Lipitor) 20 mg BEDTIME ORAL 08/20/17 21:00 09/16/17 20:59 08/26/17 21:15 Chlorhexidine Gluconate ([place]-Hex 2%) 1 applic DAILY@2000 TOPIC 08/20/17 20:00 09/16/17 19:59 08/26/17 21:15 Clonidine HCl (Catapres Tab) 0.1 mg EVERY 6 HOURS PRN ORAL For High Blood Pressure 08/20/17 19:32 09/19/17 19:31 08/26/17 08:29 Dextrose (Dextrose 50%) STAT PRN IV Hypoglycemia 08/20/17 19:32 09/15/17 19:31 Diltiazem HCl (Cardizem) 30 mg EVERY 8 HOURS ORAL 08/26/17 14:00 09/25/17 13:59 08/27/17 05:21 Divalproex Sodium (Depakote Sprinkles) 500 mg Q12HR ORAL 08/21/17 09:00 09/20/17 08:59 08/27/17 09:52 Docusate Sodium (Colace) 100 mg TWICE A DAY NG 08/21/17 18:00 09/20/17 17:59 08/27/17 09:52 Levetiracetam (Keppra) 1,000 mg DAILY ORAL 08/21/17 09:00 09/16/17 08:59 08/27/17 09:54 Lorazepam (Ativan 2mg/ml 1ml) 1 mg Q4H PRN IV For agitation 08/25/17 07:34 08/30/17 07:33 Metoprolol Succinate (Toprol XL) 50 mg DAILY ORAL 08/27/17 09:00 09/25/17 09:59 08/27/17 09:53 Ondansetron HCl (Zofran) 4 mg Q6H PRN IVP Nausea & Vomiting 08/20/17 19:33 09/15/17 19:32 Phosphorus (Phospha 250 Neutral) 250 mg THREE TIMES A DAY ORAL 08/26/17 18:00 09/25/17 17:59 08/26/17 17:22 Piperacillin Sod/ Tazobactam Sod 3.375 gm/Dextrose 110 ml @ 27.5 mls/hr EVERY 8 HOURS IVPB 08/21/17 14:00 09/03/17 13:59 08/27/17 05:21 Polyethylene Glycol (Miralax) 17 gm HSPRN PRN ORAL Constipation 08/20/17 19:33 09/15/17 19:32 08/21/17 12:18 Potassium Chloride (K-Dur) 40 meq TID ORAL 08/25/17 13:00 09/24/17 17:59 08/27/17 09:52 Spironolactone (Aldactone) 50 mg EVERY 12 HOURS ORAL 08/26/17 21:00 09/24/17 20:59 08/27/17 09:54 Zolpidem Tartrate (Ambien) 5 mg HSPRN PRN ORAL Insomnia 08/26/17 08:00 08/29/17 07:59 Height (Feet): 5 Height (Inches): 10.00 Weight (Pounds): 170 General Appearance: alert Neurologic: alert Psychiatric: anxious Josefina Spencer M.D. Aug 27, 2017 12:47
--- NOTE | 2017-08-27 14:19 | Infectious Diseases Prog Note ---
Assessment/Plan Assessment/Plan Assessment: Fever, SP ESBL UTI- r/o bacteremia, pancreatitis, cholecysitis, DVT, pna; r/o intracranial process -08/19 u/a wbc 5-10, nit +, leuk +2; ucx >100K P. mirabilis, ESBL (S Genta, Zosyn, Bactrim, Ertapenem); repeat u/a 08/21 wbc tntc, nit-, leuk +1; ucx p -Bcx 08/21 NTD -CXr 08/21: Right basilar atelectasis. No acute process otherwise. PICC -CXr 08/16 no acute disease -no leukocytosis -influenza sc neg -V. duplex: RIGHT LEG:No DVT; L leg: No acute DVT. recanalized chronic thrombus in the superficial femoral vein. Seizure disorder with seizure episode upon admission CT: -f/u Head CT w/wo No evidence of acute intracranial hemorrhage, midline shift or mass effect Large R MCA stroke CAD HLD HTN schizoaffective disorder HI resident NKDA DNR Plan: -Continue Zosyn # 7 / ESBL UTI (Ertapenem has drug interaction with valproic acid reducing levels ~66%) -08/20 SP Ceftriaxone x1 f/u cx ( Bl ) -Monitor CBC/BMP, temperatures -aspiration precautions Subjective Allergies: Coded Allergies: No Known Allergies (Unverified , 01/11/16) Subjective afebrile Objective Vital Signs Last 24 Hour Vital Signs Date Time Temp Pulse Resp B/P (MAP) Pulse Ox O2 Delivery O2 Flow Rate FiO2 08/27/17 12:00 97.6 106 19 124/85 94 Room Air 97.6 08/27/17 09:53 103 114/84 08/27/17 09:12 Room Air 08/27/17 09:11 3 Room Air 21 08/27/17 09:10 103 22 Room Air 21 08/27/17 08:00 97.8 79 20 114/84 95 Room Air 97.8 08/27/17 06:58 152/87 08/27/17 05:21 99 162/91 08/27/17 03:54 98.2 99 20 162/91 96 98.2 08/27/17 00:00 97.2 103 19 123/83 91 97.2 08/26/17 21:59 111 113/83 08/26/17 20:00 97.2 103 19 97/57 98 97.2 08/26/17 19:55 107 20 Room Air 21 08/26/17 19:55 Room Air 21 08/26/17 19:55 95 Room Air 21 08/26/17 16:05 97.1 112 20 119/80 97 Room Air 97.1 08/26/17 15:47 99 119/80 Height (Feet): 5 Height (Inches): 10.00 Weight (Pounds): 170 HEENT: anicteric Respiratory/Chest: no respiratory distress Cardiovascular: no gallop/murmur Abdomen: no organomegaly Laboratory Tests Test 08/27/17 05:50 White Blood Count 8.5 K/UL (4.8-10.8) Red Blood Count 4.76 M/UL (4.70-6.10) Hemoglobin 14.0 G/DL (14.2-18.0) L Hematocrit 42.8 % (42.0-52.0) Mean Corpuscular Volume 90 FL (80-99) Mean Corpuscular Hemoglobin 29.3 PG (27.0-31.0) Mean Corpuscular Hemoglobin Concent 32.6 G/DL (32.0-36.0) Red Cell Distribution Width 13.8 % (11.6-14.8) Platelet Count 130 K/UL (150-450) L Mean Platelet Volume 7.7 FL (6.5-10.1) Neutrophils (%) (Auto) 65.5 % (45.0-75.0) Lymphocytes (%) (Auto) 22.4 % (20.0-45.0) Monocytes (%) (Auto) 9.8 % (1.0-10.0) Eosinophils (%) (Auto) 1.9 % (0.0-3.0) Basophils (%) (Auto) 0.4 % (0.0-2.0) Sodium Level 147 MMOL/L (136-145) H Potassium Level 3.0 MMOL/L (3.5-5.1) L Chloride Level 110 MMOL/L (98-107) H Carbon Dioxide Level 29 MMOL/L (21-32) Anion Gap 8 mmol/L (5-15) Blood Urea Nitrogen 6 mg/dL (7-18) L Creatinine 0.5 MG/DL (0.55-1.30) L Estimat Glomerular Filtration Rate > 60 mL/min (>60) Glucose Level 98 MG/DL (74-106) Uric Acid 2.0 MG/DL (2.6-7.2) L Calcium Level 8.5 MG/DL (8.5-10.1) Phosphorus Level 2.5 MG/DL (2.5-4.9) Magnesium Level 2.5 MG/DL (1.8-2.4) H Total Bilirubin 0.7 MG/DL (0.2-1.0) Direct Bilirubin 0.4 MG/DL (0.0-0.3) H Aspartate Amino Transf (AST/SGOT) 35 U/L (15-37) Alanine Aminotransferase (ALT/SGPT) 18 U/L (12-78) Alkaline Phosphatase 83 U/L (46-116) Total Protein 6.3 G/DL (6.4-8.2) L Albumin 2.8 G/DL (3.4-5.0) L Current Medications Medications (Trade) Dose Ordered Sig/Andra Route PRN Reason Start Time Stop Time Status Last Admin Dose Admin Acetaminophen (Tylenol) 650 mg Q4H PRN ORAL fever 08/20/17 19:30 09/15/17 23:29 08/23/17 14:51 Albuterol/ Ipratropium (Albuterol/ Ipratropium) 3 ml Q4H PRN HHN sob 08/24/17 11:00 08/29/17 10:59 Aspirin (ASA) 325 mg DAILY ORAL 08/21/17 09:00 09/16/17 08:59 08/27/17 09:53 Atorvastatin Calcium (Lipitor) 20 mg BEDTIME ORAL 08/20/17 21:00 09/16/17 20:59 08/26/17 21:15 Chlorhexidine Gluconate ([place]-Hex 2%) 1 applic DAILY@1999 TOPIC 08/20/17 20:00 09/16/17 19:59 08/26/17 21:15 Clonidine HCl (Catapres Tab) 0.1 mg EVERY 6 HOURS PRN ORAL For High Blood Pressure 08/20/17 19:32 09/19/17 19:31 08/26/17 08:29 Dextrose (Dextrose 50%) STAT PRN IV Hypoglycemia 08/20/17 19:32 09/15/17 19:31 Diltiazem HCl (Cardizem) 30 mg EVERY 8 HOURS ORAL 08/26/17 14:00 09/25/17 13:59 08/27/17 05:21 Divalproex Sodium (Depakote Sprinkles) 500 mg Q12HR ORAL 08/21/17 09:00 09/20/17 08:59 08/27/17 09:52 Docusate Sodium (Colace) 100 mg TWICE A DAY NG 08/21/17 18:00 09/20/17 17:59 08/27/17 09:52 Levetiracetam (Keppra) 1,000 mg DAILY ORAL 08/21/17 09:00 09/16/17 08:59 08/27/17 09:54 Lorazepam (Ativan 2mg/ml 1ml) 1 mg Q4H PRN IV For agitation 08/25/17 07:34 08/30/17 07:33 Metoprolol Succinate (Toprol XL) 50 mg DAILY ORAL 08/27/17 09:00 09/25/17 09:59 08/27/17 09:53 Ondansetron HCl (Zofran) 4 mg Q6H PRN IVP Nausea & Vomiting 08/20/17 19:33 09/15/17 19:32 Phosphorus (Phospha 250 Neutral) 250 mg THREE TIMES A DAY ORAL 08/26/17 18:00 09/25/17 17:59 08/26/17 17:22 Piperacillin Sod/ Tazobactam Sod 3.375 gm/Dextrose 110 ml @ 27.5 mls/hr EVERY 8 HOURS IVPB 08/21/17 14:00 09/03/17 13:59 08/27/17 05:21 Polyethylene Glycol (Miralax) 17 gm HSPRN PRN ORAL Constipation 08/20/17 19:33 09/15/17 19:32 08/21/17 12:18 Potassium Chloride (K-Dur) 40 meq TID ORAL 08/25/17 13:00 09/24/17 17:59 08/27/17 13:33 Spironolactone (Aldactone) 50 mg EVERY 12 HOURS ORAL 08/26/17 21:00 09/24/17 20:59 08/27/17 09:54 Zolpidem Tartrate (Ambien) 5 mg HSPRN PRN ORAL Insomnia 08/26/17 08:00 08/29/17 07:59 Anthony Marino MD Aug 27, 2017 14:18
--- NOTE | 2017-08-27 15:04 | Nephrology Progress Note ---
Assessment/Plan Problem List: (1) Hypokalemia (2) Uncontrolled seizures Assessment Acute toxic metabolic encephalopathy 2 to seizure Breakthrough seizure with hx of chronic seizure disorder hx of large R MCA CVA hypokalemia likely loss from urine hematuria UTI with Proteus fevers dementia with behavioral disturbances HTN encephalopathy possible bipolar disorder Plan Plan: K , Phos , mag supplement PO Aldactone adjust bp meds per orders Subjective ROS Limited/Unobtainable: No Objective Objective Last 24 Hour Vital Signs Date Time Temp Pulse Resp B/P (MAP) Pulse Ox O2 Delivery O2 Flow Rate FiO2 08/27/17 12:00 97.6 106 19 124/85 94 Room Air 97.6 08/27/17 09:53 103 114/84 08/27/17 09:12 Room Air 08/27/17 09:11 3 Room Air 21 08/27/17 09:10 103 22 Room Air 21 08/27/17 08:00 97.8 79 20 114/84 95 Room Air 97.8 08/27/17 06:58 152/87 08/27/17 05:21 99 162/91 08/27/17 03:54 98.2 99 20 162/91 96 98.2 08/27/17 00:00 97.2 103 19 123/83 91 97.2 08/26/17 21:59 111 113/83 08/26/17 20:00 97.2 103 19 97/57 98 97.2 08/26/17 19:55 107 20 Room Air 21 08/26/17 19:55 Room Air 21 08/26/17 19:55 95 Room Air 21 08/26/17 16:05 97.1 112 20 119/80 97 Room Air 97.1 08/26/17 15:47 99 119/80 Intake and Output 08/26/17 08/27/17 19:00 07:00 Intake Total 945.85 ml Output Total 600 ml Balance 345.85 ml Intake Oral 120 ml IV Total 825.85 ml Output Urine Total 600 ml # Voids 5 5 # Bowel Movements 1 1 Laboratory Tests 08/27/17 05:50: White Blood Count 8.5, Red Blood Count 4.76, Hemoglobin 14.0L, Hematocrit 42.8, Mean Corpuscular Volume 90, Mean Corpuscular Hemoglobin 29.3, Mean Corpuscular Hemoglobin Concent 32.6, Red Cell Distribution Width 13.8, Platelet Count 130L, Mean Platelet Volume 7.7, Neutrophils (%) (Auto) 65.5, Lymphocytes (%) (Auto) 22.4, Monocytes (%) (Auto) 9.8, Eosinophils (%) (Auto) 1.9, Basophils (%) (Auto ) 0.4, Sodium Level 147H, Potassium Level 3.0L, Chloride Level 110H, Carbon Dioxide Level 29, Anion Gap 8, Blood Urea Nitrogen 6L, Creatinine 0.5L, Estimat Glomerular Filtration Rate > 60, Glucose Level 98, Uric Acid 2.0L, Calcium Level 8.5, Phosphorus Level 2.5, Magnesium Level 2.5H, Total Bilirubin 0.7, Direct Bilirubin 0.4H, Aspartate Amino Transf (AST/SGOT) 35, Alanine Aminotransferase (ALT/SGPT) 18, Alkaline Phosphatase 83, Total Protein 6.3L, Albumin 2.8L Height (Feet): 5 Height (Inches): 10.00 Weight (Pounds): 170 General Appearance: no apparent distress Objective no change SHANICE GRIGSBY Aug 27, 2017 15:04
--- NOTE | 2017-08-27 16:11 | Pulmonology Progress Note ---
Assessment/Plan Problems: (1) Acute encephalopathy (2) chronic seizure disorder, exacerbation (3) DNR (do not resuscitate) (4) Status post CVA Assessment/Plan imrpoving no more seizures afebrile, WBC wnl tolerarting feeding dv prophylaxis. Subjective ROS Limited/Unobtainable: No Constitutional: Reports: no symptoms HEENT: Repors: no symptoms Respiratory: Reports: no symptoms Allergies: Coded Allergies: No Known Allergies (Unverified , 01/11/16) Objective Last 24 Hour Vital Signs Date Time Temp Pulse Resp B/P (MAP) Pulse Ox O2 Delivery O2 Flow Rate FiO2 08/27/17 16:00 98.7 110 18 144/103 97 Room Air 98.7 08/27/17 15:45 144/101 08/27/17 15:32 106 124/85 08/27/17 12:00 97.6 106 19 124/85 94 Room Air 97.6 08/27/17 09:53 103 114/84 08/27/17 09:12 Room Air 08/27/17 09:11 3 Room Air 21 08/27/17 09:10 103 22 Room Air 21 08/27/17 08:00 97.8 79 20 114/84 95 Room Air 97.8 08/27/17 06:58 152/87 08/27/17 05:21 99 162/91 08/27/17 03:54 98.2 99 20 162/91 96 98.2 08/27/17 00:00 97.2 103 19 123/83 91 97.2 08/26/17 21:59 111 113/83 08/26/17 20:00 97.2 103 19 97/57 98 97.2 08/26/17 19:55 107 20 Room Air 21 08/26/17 19:55 Room Air 21 08/26/17 19:55 95 Room Air 21 Intake and Output 08/26/17 08/27/17 19:00 07:00 Intake Total 945.85 ml Output Total 600 ml Balance 345.85 ml Intake Oral 120 ml IV Total 825.85 ml Output Urine Total 600 ml # Voids 5 5 # Bowel Movements 1 1 General Appearance: WD/WN HEENT: normocephalic, atraumatic Respiratory/Chest: chest wall non-tender, lungs clear Cardiovascular: normal peripheral pulses, normal rate Abdomen: normal bowel sounds, soft, non tender Genitourinary: normal external genitalia Neurologic/Psychiatric: paper winder II-XII grossly normal, normal mood/affect Lymphatic: no neck adenopathy Laboratory Tests 08/27/17 05:50: White Blood Count 8.5, Red Blood Count 4.76, Hemoglobin 14.0L, Hematocrit 42.8, Mean Corpuscular Volume 90, Mean Corpuscular Hemoglobin 29.3, Mean Corpuscular Hemoglobin Concent 32.6, Red Cell Distribution Width 13.8, Platelet Count 130L, Mean Platelet Volume 7.7, Neutrophils (%) (Auto) 65.5, Lymphocytes (%) (Auto) 22.4, Monocytes (%) (Auto) 9.8, Eosinophils (%) (Auto) 1.9, Basophils (%) (Auto ) 0.4, Sodium Level 147H, Potassium Level 3.0L, Chloride Level 110H, Carbon Dioxide Level 29, Anion Gap 8, Blood Urea Nitrogen 6L, Creatinine 0.5L, Estimat Glomerular Filtration Rate > 60, Glucose Level 98, Uric Acid 2.0L, Calcium Level 8.5, Phosphorus Level 2.5, Magnesium Level 2.5H, Total Bilirubin 0.7, Direct Bilirubin 0.4H, Aspartate Amino Transf (AST/SGOT) 35, Alanine Aminotransferase (ALT/SGPT) 18, Alkaline Phosphatase 83, Total Protein 6.3L, Albumin 2.8L Current Medications Medications (Trade) Dose Ordered Sig/Andra Route PRN Reason Start Time Stop Time Status Last Admin Dose Admin Acetaminophen (Tylenol) 650 mg Q4H PRN ORAL fever 08/20/17 19:30 09/15/17 23:29 08/23/17 14:51 Albuterol/ Ipratropium (Albuterol/ Ipratropium) 3 ml Q4H PRN HHN sob 08/24/17 11:00 08/29/17 10:59 Aspirin (ASA) 325 mg DAILY ORAL 08/21/17 09:00 09/16/17 08:59 08/27/17 09:53 Atorvastatin Calcium (Lipitor) 20 mg BEDTIME ORAL 08/20/17 21:00 09/16/17 20:59 08/26/17 21:15 Chlorhexidine Gluconate ([place]-Hex 2%) 1 applic DAILY@1999 TOPIC 08/20/17 20:00 4/22/18 19:59 08/26/17 21:15 Clonidine HCl (Catapres Tab) 0.1 mg EVERY 6 HOURS PRN ORAL For High Blood Pressure 08/20/17 19:32 09/19/17 19:31 08/27/17 15:45 Dextrose (Dextrose 50%) STAT PRN IV Hypoglycemia 08/20/17 19:32 09/15/17 19:31 Diltiazem HCl (Cardizem) 30 mg EVERY 8 HOURS ORAL 08/26/17 14:00 09/25/17 13:59 08/27/17 15:32 Divalproex Sodium (Depakote Sprinkles) 500 mg Q12HR ORAL 08/21/17 09:00 09/20/17 08:59 08/27/17 09:52 Docusate Sodium (Colace) 100 mg TWICE A DAY NG 08/21/17 18:00 09/20/17 17:59 08/27/17 09:52 Levetiracetam (Keppra) 1,000 mg DAILY ORAL 08/21/17 09:00 09/16/17 08:59 08/27/17 09:54 Lorazepam (Ativan 2mg/ml 1ml) 1 mg Q4H PRN IV For agitation 08/25/17 07:34 08/30/17 07:33 Metoprolol Succinate (Toprol XL) 50 mg DAILY ORAL 08/27/17 09:00 09/25/17 09:59 08/27/17 09:53 Ondansetron HCl (Zofran) 4 mg Q6H PRN IVP Nausea & Vomiting 08/20/17 19:33 09/15/17 19:32 Phosphorus (Phospha 250 Neutral) 250 mg THREE TIMES A DAY ORAL 08/26/17 18:00 09/25/17 17:59 08/26/17 17:22 Piperacillin Sod/ Tazobactam Sod 3.375 gm/Dextrose 110 ml @ 27.5 mls/hr EVERY 8 HOURS IVPB 08/21/17 14:00 09/03/17 13:59 08/27/17 15:32 Polyethylene Glycol (Miralax) 17 gm HSPRN PRN ORAL Constipation 08/20/17 19:33 09/15/17 19:32 08/21/17 12:18 Potassium Chloride 40 meq/ Sodium Chloride 570 ml @ 142.5 mls/ hr ONCE ONCE IVPB 08/27/17 16:30 08/27/17 20:29 Potassium Chloride (K-Dur) 40 meq TID ORAL 08/25/17 13:00 09/24/17 17:59 08/27/17 15:33 Spironolactone (Aldactone) 50 mg EVERY 12 HOURS ORAL 08/26/17 21:00 09/24/17 20:59 08/27/17 09:54 Zolpidem Tartrate (Ambien) 5 mg HSPRN PRN ORAL Insomnia 08/26/17 08:00 08/29/17 07:59 Milly Banuelos MD Aug 27, 2017 16:11
[2017-08-27] MEDS ORDERED: Potassium Chloride 40 MEQ in Sodium Chloride 500ML 550 ML IVPB ONE (16:30)
[2017-08-27] MEDS: Dyna-Hex 2% Top Sol 2oz TOPIC SCH (21:15)
[2017-08-27] MEDS: Atorvastatin 20mg tab ORAL SCH (21:15)
[2017-08-28] VITALS: BP 122/59
[2017-08-28 04:00] VITALS: BP 119/74
[2017-08-28] MEDS: Piperacillin/Tazobactam 3.375 GM in D5W 110 ML IVPB SCH (05:30)
[2017-08-28] MEDS: dilTIAZem HCl 30mg tab ORAL SCH (05:30)
[2017-08-28 05:47] LABS: ALANINE AMINOTRANSFERASE 15 U/L (12-78); ALBUMIN 2.5 G/DL (3.4-5.0); ALBUMIN/GLOBULIN RATIO 0.6 (1.0-2.7); ALKALINE PHOSPHATASE 84 U/L (46-116); ANION GAP 6 mmol/L (5-15); ASPARTATE AMINO TRANSFERASE 28 U/L (15-37); BILIRUBIN,TOTAL 0.6 MG/DL (0.2-1.0); BLOOD UREA NITROGEN 8 mg/dL (7-18); CALCIUM 8.8 MG/DL (8.5-10.1); CARBON DIOXIDE 27 MMOL/L (21-32); CHLORIDE 112 MMOL/L (98-107); CREATININE 0.5 MG/DL (0.55-1.30); PHOSPHORUS 2.2 MG/DL (2.5-4.9); POTASSIUM 3.9 MMOL/L (3.5-5.1); SODIUM 145 MMOL/L (136-145)
[2017-08-28 08:00] VITALS: BP 94/58
--- NOTE | 2017-08-28 08:42 | Infectious Diseases Prog Note ---
Assessment/Plan Assessment/Plan Assessment: Fever, SP MDR P Mirabilis UTI- r/o bacteremia, pancreatitis, cholecysitis, DVT, pna; r/o intracranial process -08/19 u/a wbc 5-10, nit +, leuk +2; ucx >100K P. mirabilis, ESBL (S Genta, Zosyn, Bactrim, Ertapenem); repeat u/a 08/21 wbc tntc, nit-, leuk +1; ucx p -Bcx 08/21 NTD -CXr 08/21: Right basilar atelectasis. No acute process otherwise. PICC -CXr 08/16 no acute disease -no leukocytosis -influenza sc neg -V. duplex: RIGHT LEG:No DVT; L leg: No acute DVT. recanalized chronic thrombus in the superficial femoral vein. Seizure disorder with seizure episode upon admission CT: -f/u Head CT w/wo No evidence of acute intracranial hemorrhage, midline shift or mass effect Large R MCA stroke CAD HLD HTN schizoaffective disorder [place] resident NKDA DNR Plan: -Continue Zosyn # ESBL UTI (Ertapenem has drug interaction with valproic acid reducing levels ~66%) -08/20 SP Ceftriaxone x1 f/u cx ( Bl ) -Monitor CBC/BMP, temperatures -aspiration precautions Subjective Constitutional: Denies: no symptoms, fever, chills, fatigue, anorexia, drenching sweats, other Allergies: Coded Allergies: No Known Allergies (Unverified , 01/11/16) Subjective afebrile Objective Vital Signs Last 24 Hour Vital Signs Date Time Temp Pulse Resp B/P (MAP) Pulse Ox O2 Delivery O2 Flow Rate FiO2 08/28/17 07:58 98 18 Room Air 21 08/28/17 07:58 96 Room Air 21 08/28/17 07:58 Room Air 21 08/28/17 05:30 92 119/74 08/28/17 04:00 97.9 92 21 119/74 94 97.9 08/28/17 00:00 97.2 94 20 122/59 95 97.2 08/27/17 21:09 90 93/55 08/27/17 20:00 97.5 90 20 93/55 91 97.5 08/27/17 19:30 92 Room Air 21 4/2/18 19:30 92 20 Room Air 21 08/27/17 19:30 Room Air 21 08/27/17 16:00 98.7 110 18 144/103 97 Room Air 98.7 08/27/17 15:45 144/101 08/27/17 15:32 106 124/85 08/27/17 12:00 97.6 106 19 124/85 94 Room Air 97.6 08/27/17 09:53 103 114/84 08/27/17 09:12 Room Air 08/27/17 09:11 3 Room Air 21 08/27/17 09:10 103 22 Room Air 21 Height (Feet): 5 Height (Inches): 10.00 Weight (Pounds): 170 HEENT: anicteric Respiratory/Chest: normal breath sounds Cardiovascular: regularly irregular Abdomen: soft, non tender Laboratory Tests Test 08/28/17 05:15 Sodium Level 145 MMOL/L (136-145) Potassium Level 3.9 MMOL/L (3.5-5.1) Chloride Level 112 MMOL/L (98-107) H Carbon Dioxide Level 27 MMOL/L (21-32) Anion Gap 6 mmol/L (5-15) Blood Urea Nitrogen 8 mg/dL (7-18) Creatinine 0.5 MG/DL (0.55-1.30) L Estimat Glomerular Filtration Rate > 60 mL/min (>60) Glucose Level 91 MG/DL (74-106) Uric Acid 2.1 MG/DL (2.6-7.2) L Calcium Level 8.8 MG/DL (8.5-10.1) Phosphorus Level 2.2 MG/DL (2.5-4.9) L Magnesium Level 2.0 MG/DL (1.8-2.4) Total Bilirubin 0.6 MG/DL (0.2-1.0) Aspartate Amino Transf (AST/SGOT) 28 U/L (15-37) Alanine Aminotransferase (ALT/SGPT) 15 U/L (12-78) Alkaline Phosphatase 84 U/L (46-116) Total Protein 6.6 G/DL (6.4-8.2) Albumin 2.5 G/DL (3.4-5.0) L Globulin 4.1 g/dL Albumin/Globulin Ratio 0.6 (1.0-2.7) L Current Medications Medications (Trade) Dose Ordered Sig/Andra Route PRN Reason Start Time Stop Time Status Last Admin Dose Admin Acetaminophen (Tylenol) 650 mg Q4H PRN ORAL fever 08/20/17 19:30 09/15/17 23:29 08/23/17 14:51 Albuterol/ Ipratropium (Albuterol/ Ipratropium) 3 ml Q4H PRN HHN sob 08/24/17 11:00 08/29/17 10:59 Aspirin (ASA) 325 mg DAILY ORAL 08/21/17 09:00 09/16/17 08:59 08/27/17 09:53 Atorvastatin Calcium (Lipitor) 20 mg BEDTIME ORAL 08/20/17 21:00 09/16/17 20:59 08/27/17 21:15 Chlorhexidine Gluconate (Ivaina-Hex 2%) 1 applic DAILY@1999 TOPIC 08/20/17 20:00 09/16/17 19:59 08/27/17 21:15 Clonidine HCl (Catapres Tab) 0.1 mg EVERY 6 HOURS PRN ORAL For High Blood Pressure 08/20/17 19:32 09/19/17 19:31 08/27/17 15:45 Dextrose (Dextrose 50%) STAT PRN IV Hypoglycemia 08/20/17 19:32 09/15/17 19:31 Diltiazem HCl (Cardizem) 30 mg EVERY 8 HOURS ORAL 08/26/17 14:00 09/25/17 13:59 08/28/17 05:30 Divalproex Sodium (Depakote Sprinkles) 500 mg Q12HR ORAL 08/21/17 09:00 09/20/17 08:59 08/27/17 21:15 Docusate Sodium (Colace) 100 mg TWICE A DAY NG 08/21/17 18:00 09/20/17 17:59 08/27/17 18:04 Levetiracetam (Keppra) 1,000 mg DAILY ORAL 08/21/17 09:00 09/16/17 08:59 08/27/17 09:54 Lorazepam (Ativan 2mg/ml 1ml) 1 mg Q4H PRN IV For agitation 08/25/17 07:34 08/30/17 07:33 Metoprolol Succinate (Toprol XL) 50 mg DAILY ORAL 08/27/17 09:00 5/1/18 09:59 08/27/17 09:53 Ondansetron HCl (Zofran) 4 mg Q6H PRN IVP Nausea & Vomiting 08/20/17 19:33 09/15/17 19:32 Phosphorus (Phospha 250 Neutral) 250 mg THREE TIMES A DAY ORAL 08/26/17 18:00 09/25/17 17:59 08/26/17 17:22 Piperacillin Sod/ Tazobactam Sod 3.375 gm/Dextrose 110 ml @ 27.5 mls/hr EVERY 8 HOURS IVPB 08/21/17 14:00 09/03/17 13:59 08/28/17 05:30 Polyethylene Glycol (Miralax) 17 gm HSPRN PRN ORAL Constipation 08/20/17 19:33 09/15/17 19:32 08/21/17 12:18 Potassium Chloride (K-Dur) 40 meq TID ORAL 08/25/17 13:00 09/24/17 17:59 08/27/17 15:33 Spironolactone (Aldactone) 50 mg EVERY 12 HOURS ORAL 08/26/17 21:00 09/24/17 20:59 08/27/17 09:54 Zolpidem Tartrate (Ambien) 5 mg HSPRN PRN ORAL Insomnia 08/26/17 08:00 08/29/17 07:59 Anthony Marino MD Aug 28, 2017 08:42
[2017-08-28] MEDS: Docusate 100mg/10ml Liq NG SCH (09:22)
[2017-08-28] MEDS: levETIRAcetam 500mg/5ml Liquid ORAL SCH (09:22)
[2017-08-28] MEDS: Spironolactone 50mg tab ORAL SCH (09:23)
[2017-08-28] MEDS: Depakote 125mg Sprinkles ORAL SCH (09:23)
[2017-08-28] MEDS: Phospha 250 Neutral tab ORAL SCH (09:24)
[2017-08-28] MEDS: Metoprolol Succinate XL 50mg tab ORAL SCH (09:26)
[2017-08-28 12:00] VITALS: BP 143/78
--- NOTE | 2017-08-28 12:01 | Diagnostic Imaging Report ---
Indications: Reason For Exam: DYSPHAGIA Technique: Patient ingested multiple substances under the supervision of speech pathology. Video fluoroscopic recording performed. Total fluoroscopy time 250 seconds. Total dose area product 0.45500 mGycm2 Comparison: none Findings: Ingestion of thin liquid barium demonstrates early pooling of contrast in the vallecula and piriform sinuses, delayed swallow, incomplete clearing of bolus with swallowing. Some laryngeal penetration is seen with thin liquid barium pooling with nectar thick liquid barium is demonstrated before swallowing. Delayed initiation of deglutition. Penetration of nectar thick liquid barium is demonstrated. There is also delayed pooling of contrast. Honey thick liquid barium demonstrates early pooling, delay in initiation of dictation, penetration and trace aspiration Impression: Positive for penetration of multiple substances, reported aspiration of honey thick liquid barium. Please refer to speech pathology report for more detailed analysis
[2017-08-28] MEDS ORDERED: Tubing IV Secondary IV ONE (12:14)
[2017-08-28] MEDS ORDERED: NS 275ml ONE (12:14)
--- NOTE | 2017-08-28 18:17 | Discharge Summary ---
Discharge Summary Discharge Summary Discharge Summary DATE OF ADMISSION: 08/16/2017 DATE OF DISCHARGE: 08/28/2017 CONSULTANTS: 1. Dr. Gino Abernathy 2. Dr. Josefina Spencer 3. Dr. Rhona Puri 4. Dr. Kendell Black BRIEF HOSPITAL COURSE: Patient is a 66-year-old male with history of CVA, seizures, DO NOT RESUSCITATE , senior care resident presented to ED by paramedics due to witnessed seizure. He was noted to have been taking Depakote. He was given Versed by EMS. He has medical history significant for atherosclerotic heart disease, anemia, hyperlipidemia, paranoid schizophrenia and depression. On arrival to ED patient was somewhat somnolent. Attempt to put a right IJ and right subclavian central venous catheter was done however unsuccessful. A right tibial intraosseous line was then placed. He was then admitted for seizure exacerbation. He was seen by Dr. Kendell Black. On neurologic exam, he only responds to deep pain on right sided stimulation, but not left-sided stimuli. He had significant leukocytoses and oriented dehydration. He was continued on Keppra 1 g every 12 hours and Depakote 500 mg every 12 hours. He was placed on seizure precautions and Ativan prn breakthrough seizures.He was resumed on his home meds including aspirin and statin. Head CT showed no acute intracranial pathology with extensive encephalomalacia. He had persistently low potassium, hypokalemia likely from urinary loss. He was given potassium IV and by mouth. He had transient episode of hematuria, he was taken off heparin. Hematuria resolved, hematuria likely was due to UTI. Renal parameters were stable. She had behavioral issues and was continued on Depakote. He developed fever up to 102. Discharge was held and patient was pancultured. Urine culture with ESBL Proteus. Chest x-ray was negative influenza screen was negative. Blood culture was likewise negative. He was given Zosyn, unable to give ertapenem due to possible drug reaction with valproic acid. He eventually defervesced. Repeat blood culture did not isolate any growth. He was then discharged to [facility]. FINAL DIAGNOSES: 1. Seizure disorder with acute breakthrough exacerbation 2. Acute toxic metabolic encephalopathy secondary to seizure 3. History of large right MCA CVA 4. Hypokalemia secondary to urine loss 5. Hypophosphatemia and hypomagnesemia 6. Hematuria resolved 7. Urinary tract infection with Proteus ESBL 8. Dementia with behavioral disturbance 9. Hypertension 10. Possible bipolar disorder 11. Dysphagia DISPOSITION: Patient was discharged to [facility] DISCHARGE MEDICATIONS: Refer to Discharge Medication List. Continue with ceftriaxone 1 g IV daily for 5 days I have been assigned to dictate discharge summary on this account, and I was not involved in the patient's management. Clarissa Chen NP Aug 28, 2017 18:17
--- NOTE | 2017-08-28 19:21 | Pulmonology Progress Note ---
Assessment/Plan Problems: (1) Acute encephalopathy (2) chronic seizure disorder, exacerbation (3) DNR (do not resuscitate) (4) Status post CVA Assessment/Plan imrpoving no more seizures afebrile, WBC wnl tolerarting feeding dv prophylaxis. dc today Subjective ROS Limited/Unobtainable: No Allergies: Coded Allergies: No Known Allergies (Unverified , 01/11/16) Objective Last 24 Hour Vital Signs Date Time Temp Pulse Resp B/P (MAP) Pulse Ox O2 Delivery O2 Flow Rate FiO2 08/28/17 12:00 97.6 82 20 143/78 96 Room Air 97.6 08/28/17 09:26 100 123/79 08/28/17 08:00 98.2 97 21 94/58 95 Room Air 98.2 08/28/17 07:58 98 18 Room Air 21 08/28/17 07:58 96 Room Air 21 08/28/17 07:58 Room Air 21 08/28/17 05:30 92 119/74 08/28/17 04:00 97.9 92 21 119/74 94 97.9 08/28/17 00:00 97.2 94 20 122/59 95 97.2 08/27/17 21:09 90 93/55 08/27/17 20:00 97.5 90 20 93/55 91 97.5 08/27/17 19:30 92 Room Air 21 08/27/17 19:30 92 20 Room Air 21 08/27/17 19:30 Room Air 21 Intake and Output 08/27/17 08/28/17 19:00 07:00 Intake Total 465.0 ml 592.5 ml Balance 465.0 ml 592.5 ml Intake Oral 240 ml IV Total 225.0 ml 592.5 ml # Voids 3 2 # Bowel Movements 1 2 Objective General Appearance: WD/WN HEENT: normocephalic Respiratory/Chest: chest wall non-tender, lungs clear Cardiovascular: normal rate Abdomen: normal bowel sounds, soft, non tender, no scars Genitourinary: normal external genitalia Extremities: no clubbing Skin: no rash Neurologic/Psychiatric: cleaner and dyer II-XII grossly normal Laboratory Tests 08/28/17 05:15: Sodium Level 145, Potassium Level 3.9, Chloride Level 112H, Carbon Dioxide Level 27, Anion Gap 6, Blood Urea Nitrogen 8, Creatinine 0.5L, Estimat Glomerular Filtration Rate > 60, Glucose Level 91, Uric Acid 2.1L, Calcium Level 8.8, Phosphorus Level 2.2L, Magnesium Level 2.0, Total Bilirubin 0.6, Aspartate Amino Transf (AST/SGOT) 28, Alanine Aminotransferase (ALT/SGPT) 15, Alkaline Phosphatase 84, Total Protein 6.6, Albumin 2.5L, Globulin 4.1, Albumin/ Globulin Ratio 0.6L Milly Banuelos MD Aug 28, 2017 19:21
--- NOTE | 2017-08-28 23:04 | General Progress Note ---
Assessment/Plan Assessment/Plan encephalopathy behavioral issues bipolar d/o? -cont to monitor -Depakote Subjective Allergies: Coded Allergies: No Known Allergies (Unverified , 01/11/16) Subjective the pt is less agitated Objective Last 24 Hour Vital Signs Date Time Temp Pulse Resp B/P (MAP) Pulse Ox O2 Delivery O2 Flow Rate FiO2 08/28/17 12:00 97.6 82 20 143/78 96 Room Air 97.6 08/28/17 09:26 100 123/79 08/28/17 08:00 98.2 97 21 94/58 95 Room Air 98.2 08/28/17 07:58 98 18 Room Air 21 08/28/17 07:58 96 Room Air 21 08/28/17 07:58 Room Air 21 08/28/17 05:30 92 119/74 08/28/17 04:00 97.9 92 21 119/74 94 97.9 08/28/17 00:00 97.2 94 20 122/59 95 97.2 Intake and Output 08/27/17 08/28/17 19:00 07:00 Intake Total 465.0 ml 592.5 ml Balance 465.0 ml 592.5 ml Intake Oral 240 ml IV Total 225.0 ml 592.5 ml # Voids 3 2 # Bowel Movements 1 2 Laboratory Tests 08/28/17 05:15: Sodium Level 145, Potassium Level 3.9, Chloride Level 112H, Carbon Dioxide Level 27, Anion Gap 6, Blood Urea Nitrogen 8, Creatinine 0.5L, Estimat Glomerular Filtration Rate > 60, Glucose Level 91, Uric Acid 2.1L, Calcium Level 8.8, Phosphorus Level 2.2L, Magnesium Level 2.0, Total Bilirubin 0.6, Aspartate Amino Transf (AST/SGOT) 28, Alanine Aminotransferase (ALT/SGPT) 15, Alkaline Phosphatase 84, Total Protein 6.6, Albumin 2.5L, Globulin 4.1, Albumin/ Globulin Ratio 0.6L Height (Feet): 5 Height (Inches): 10.00 Weight (Pounds): 170 Josefina Spencer M.D. Aug 28, 2017 23:04
== END 2017-08-28 12:15 | DRG 100 ==
LOC: EDBD 20:11 → EMR 20:20 → 2W 23:20 → EDBEDREQ 23:25 → 2W 08-17 00:40 → 2E 08-18 13:40 → 4E 08-20 18:43
PROC: B548ZZA Ultrasonography of Superior Vena Cava, Guidance (ICD-10-PCS; principal; 2017-08-20)
PROC: 02HV33Z Insertion of Infusion Device into Superior Vena Cava, Percutaneous Approach (ICD-10-PCS; principal; 2017-08-20)
DX: G40.909 Epilepsy, unspecified, not intractable, without status epilepticus (principal); G92 Toxic encephalopathy; F03.91 Unspecified dementia, unspecified severity, with behavioral disturbance; N39.0 Urinary tract infection, site not specified; F25.9 Schizoaffective disorder, unspecified; I25.10 Atherosclerotic heart disease of native coronary artery without angina pectoris; E78.5 Hyperlipidemia, unspecified; I10 Essential (primary) hypertension; E87.6 Hypokalemia; R31.9 Hematuria, unspecified; F31.9 Bipolar disorder, unspecified; E83.42 Hypomagnesemia; E83.39 Other disorders of phosphorus metabolism; R13.10 Dysphagia, unspecified; B96.4 Proteus (mirabilis) (morganii) as the cause of diseases classified elsewhere; Z16.12 Extended spectrum beta lactamase (ESBL) resistance; Z86.73 Personal history of transient ischemic attack (TIA), and cerebral infarction without residual deficits; Z66 Do not resuscitate; Z79.82 Long term (current) use of aspirin; Z51.81 Encounter for therapeutic drug level monitoring; Z78.1 Physical restraint status
CPT/HCPCS: 36415; 36569; 70470; 71045; 74230; 76937; 80048; 80053; 80061; 80076; 80164; 81001; 81003; 82150; 82550; 82607; 82728; 82746; 82962; 82977; 83540; 83550; 83690; 83735; 83880; 84100; 84132; 84133; 84300; 84443; 84550; 85007; 85025; 86140; 86710; 87040; 87081; 87086; 87181; 93005; 93970; 94664; 94760; 99285; C9399; J8499

== ENCOUNTER 2017-09-28 11:52 | Inpatient (IN) | payer MEDICARE, MEDICAID ==
[~2017-09-28] VITALS: Ht 170.2 cm; Wt 77.1 kg
[~2017-09-28 11:52] MED LIST changes: +LIPITOR20 MG ORAL; +NORVASC5 MG ORAL; +POTASSIUM CHLO20 ME2 ORAL; +ROCEPHIN 11 GM/50 ML IVPB; +VITAMIN B-12100 MC1 PO
[2017-09-28] MEDS ORDERED: LORazepam Inj 2mg/ml 1ml IV ONE (12:00)
[2017-09-28] MEDS ORDERED: levETIRAcetam 1,000mg/NS100ml 100 ML IVPB ONE (12:00)
[2017-09-28 12:46] VITALS: BP 142/71
[2017-09-28 13:14] LABS: BASOPHILS % (AUTO) 0.7 % (0.0-2.0); EOSINOPHILS % (AUTO) 0.6 % (0.0-3.0); HEMATOCRIT 44.4 % (42.0-52.0); HEMOGLOBIN 14.7 G/DL (14.2-18.0); LYMPHOCYTES % (AUTO) 25.4 % (20.0-45.0); MEAN CORPUSCULAR VOLUME 91 FL (80-99); MONOCYTES % (AUTO) 10.5 % (1.0-10.0); NEUTROPHILS % (AUTO) 62.8 % (45.0-75.0); PLATELET COUNT 140 K/UL (150-450); RED BLOOD COUNT 4.89 M/UL (4.70-6.10); RED CELL DISTRIBUTION WIDTH 14.6 % (11.6-14.8); WHITE BLOOD COUNT 6.6 K/UL (4.8-10.8)
--- NOTE | 2017-09-28 13:16 | Diagnostic Imaging Report ---
Indication: Pain Technique: Continuous helical CT scanning of the head was performed utilizing automated exposure control without intravenous contrast material. Axial and coronal reconstructions were obtained. Comparison: 08/24/2017 and 01/11/2016 CT dose: Total DLP 1460.54 mGycm; CTDI vol 70.38 mGy Findings: Extensive encephalomalacia is again noted involving the right temporal, parietal and lateral frontal lobes. Overall findings are unchanged. Again this may represent sequela of prior ischemia or trauma. There is unchanged ex vacuo dilatation of the ventricles. The size and configuration of the ventricular system is stable compared to the prior exam. There is parenchymal volume loss compatible with atrophy and periventricular hypoattenuation consistent with sequela of chronic microvascular ischemia. There is no acute intracranial hemorrhage. No new focal area of low-attenuation is seen. No midline shift or CT evidence of acute infarct. There is unchanged under pneumatization of the left mastoid air cells relative to the right. No new mastoid opacification is seen. There is very mild mucosal thickening in some ethmoid air cells. Remainder the visualized paranasal sinuses are clear. There is no depressed calvarial fracture. Visualized portions of the orbits grossly unremarkable. IMPRESSION: No evidence of acute intracranial hemorrhage, midline shift or mass effect. Extensive encephalomalacia in the right frontal, parietal and lateral temporal lobes unchanged from the prior exam and likely related to sequela of remote ischemia or injury. Atrophy and nonspecific periventricular hypoattenuation suggestive of chronic ischemic microvascular changes. The CT scanner at [facility] is accredited by the [employer] and the scans are performed using protocols designed to limit radiation exposure to as low as reasonably achievable to attain images of sufficient resolution adequate for diagnostic evaluation.
[2017-09-28 13:43] LABS: ALANINE AMINOTRANSFERASE 9 U/L (12-78); ALBUMIN 3.1 G/DL (3.4-5.0); ALBUMIN/GLOBULIN RATIO 0.7 (1.0-2.7); ALKALINE PHOSPHATASE 98 U/L (46-116); ANION GAP 8 mmol/L (5-15); ASPARTATE AMINO TRANSFERASE 18 U/L (15-37); BILIRUBIN,TOTAL 0.6 MG/DL (0.2-1.0); BLOOD UREA NITROGEN 8 mg/dL (7-18); CARBON DIOXIDE 31 MMOL/L (21-32); CHLORIDE 103 MMOL/L (98-107); CREATININE 0.5 MG/DL (0.55-1.30); SODIUM 141 MMOL/L (136-145)
[2017-09-28 13:53] LABS: APPEARANCE,URINE SLIGHTLY CLOUDY; BILIRUBIN, URINE NEGATIVE (NEGATIVE); COLOR,URINE PALE YELLOW; GLUCOSE, URINE (UA) NEGATIVE (NEGATIVE); KETONES,URINE 3+ (NEGATIVE); LEUKOCYTE ESTERASE ,URINE NEGATIVE (NEGATIVE); NITRITE,URINE NEGATIVE (NEGATIVE); PH,URINE 8 (4.5-8.0); PROTEIN,URINE NEGATIVE (NEGATIVE); UROBILINOGEN,URINE 1 MG/DL (0.0-1.0)
[2017-09-28 13:55] LABS: POTASSIUM 2.3 MMOL/L (3.5-5.1)
[2017-09-28 14:30] VITALS: BP 92/49
--- NOTE | 2017-09-28 14:49 | Emergency Room Report ---
History of Present Illness General Chief Complaint: Dyspnea/Respdistress Source: Medical Record, EMS Present Illness HPI Patient presents emergency department today with generalized weakness and recurrent seizures. Patient had a seizure at the facility today and EMS is contacted. Patient was brought here further evaluation. Patient received Versed in route but continued to have seizures while arrival. Patient was unable to provide any history as he was confused and seizing. History was taken from medical records and discussion paramedics. Symptoms noted to be highly severe.No other modifying factors. No other associated signs and symptoms. No other complaints were noted. Allergies: Coded Allergies: No Known Allergies (Unverified , 01/11/16) Patient History Past Medical History: CAD, asthma, COPD, dementia, seizures, psych hx, other - Anemia, hyperlipidemia Past Surgical History: none Pertinent Family History: none Social History Narrative stays at a penitentiary Reviewed Nursing Documentation: PMH: Agreed; PSxH: Agreed Nursing Documentation-PMH Past Medical History: No History, Except For Hx Cardiac Problems: Yes - athscl heart disease, anemia, hyperlipdemia Hx Hypertension: Yes Hx Asthma: Yes Hx COPD: Yes Hx Cancer: No Hx Gastrointestinal Problems: No Hx Dementia: Yes - Vascular dementia with behavioral disturbance Hx Seizures: Yes Review of Systems All Other Systems: limited - Poor mental status Physical Exam Vital Signs Date Time Temp Pulse Resp B/P (MAP) Pulse Ox O2 Delivery O2 Flow Rate FiO2 09/28/17 11:59 98.2 91 15 139/67 100 Non-Rebreather 9.0 98.2 Sp02 EP Interpretation: reviewed, normal General Appearance: severe distress Head: normocephalic Eyes: bilateral eye normal inspection ENT: moist mucus membranes Neck: supple Respiratory: normal inspection, chest non-tender, lungs clear Cardiovascular #1: regular rate, rhythm, no edema Gastrointestinal: normal inspection, normal bowel sounds, non tender, soft, no guarding, no hernia Genitourinary: no CVA tenderness Musculoskeletal: normal inspection, back normal, digits/nails normal Neurologic: alert, other - seziure activity left arm Psychiatric: other - Unable to fully assess Skin: normal inspection, normal color, no rash Procedures Critical Care Time Critical Care Time Patient had a critical medical condition which untreated could potentially result in life or limb threatening injury. Total critical care time excluding procedures was approximately 45 minutes. Medical Decision Making Diagnostic Impression: Primary Impression: Status epilepticus ER Course Patient presents emergency department today with active seizures. Differential considerations include acute electrolyte abnormality, arrhythmia, breakthrough seizures, subtherapeutic medication level, intracranial injury just to name a few.Given the severity of the patient's presentation I felt this is a highly complex patient. This patient required extensive workup. Patient's laboratory workup show low potassium. Patient's EKG did not show any evidence of acute changes. Head CT was negative for any acute changes. Patient was given Ativan as well as Keppra and seizures stopped. Because of patient's presentation altered mental status persistent seizures and for the patient require admission. Case was discussed with Dr. Banuelos for admission. Labs Test 09/28/17 12:55 09/28/17 13:30 White Blood Count 6.6 K/UL (4.8-10.8) Red Blood Count 4.89 M/UL (4.70-6.10) Hemoglobin 14.7 G/DL (14.2-18.0) Hematocrit 44.4 % (42.0-52.0) Mean Corpuscular Volume 91 FL (80-99) Mean Corpuscular Hemoglobin 30.0 PG (27.0-31.0) Mean Corpuscular Hemoglobin Concent 33.1 G/DL (32.0-36.0) Red Cell Distribution Width 14.6 % (11.6-14.8) Platelet Count 140 K/UL (150-450) Mean Platelet Volume 7.3 FL (6.5-10.1) Neutrophils (%) (Auto) 62.8 % (45.0-75.0) Lymphocytes (%) (Auto) 25.4 % (20.0-45.0) Monocytes (%) (Auto) 10.5 % (1.0-10.0) Eosinophils (%) (Auto) 0.6 % (0.0-3.0) Basophils (%) (Auto) 0.7 % (0.0-2.0) Sodium Level 141 MMOL/L (136-145) Potassium Level 2.3 MMOL/L (3.5-5.1) Chloride Level 103 MMOL/L (98-107) Carbon Dioxide Level 31 MMOL/L (21-32) Anion Gap 8 mmol/L (5-15) Blood Urea Nitrogen 8 mg/dL (7-18) Creatinine 0.5 MG/DL (0.55-1.30) Estimat Glomerular Filtration Rate > 60 mL/min (>60) Glucose Level 98 MG/DL (74-106) Calcium Level 9.0 MG/DL (8.5-10.1) Total Bilirubin 0.6 MG/DL (0.2-1.0) Aspartate Amino Transf (AST/SGOT) 18 U/L (15-37) Alanine Aminotransferase (ALT/SGPT) 9 U/L (12-78) Alkaline Phosphatase 98 U/L (46-116) Total Protein 7.5 G/DL (6.4-8.2) Albumin 3.1 G/DL (3.4-5.0) Globulin 4.4 g/dL Albumin/Globulin Ratio 0.7 (1.0-2.7) Valproic Acid (Depakene) Level 75 MCG/ML (50-100) Urine Color Pale yellow Urine Appearance Slightly cloudy Urine pH 8 (4.5-8.0) Urine Specific [place] 1.010 (1.005-1.035) Urine Protein Negative (NEGATIVE) Urine Glucose (UA) Negative (NEGATIVE) Urine Ketones 3+ (NEGATIVE) Urine Occult Blood 5+ (NEGATIVE) Urine Nitrite Negative (NEGATIVE) Urine Bilirubin Negative (NEGATIVE) Urine Urobilinogen 1 MG/DL (0.0-1.0) Urine Leukocyte Esterase Negative (NEGATIVE) Urine RBC 15-20 /HPF (0 - 0) Urine WBC 0-2 /HPF (0 - 0) Urine Squamous Epithelial Cells Occasional /LPF Urine Bacteria Occasional /HPF (NONE) EKG Diagnostic Results Rate: normal Rhythm: NSR ST Segments: no acute changes Rhythm Strip Diag. Results EP Interpretation: yes Rate: 85 Rhythm: NSR, no PVC's, no ectopy Chest X-Ray Diagnostic Results Chest X-Ray Diagnostic Results : Chest X-Ray Ordered: Yes # of Views/Limited/Complete: 1 View Indication: Shortness of Breath EP Interpretation: Yes Interpretation: no consolidation, no effusion, no pneumothorax, no acute cardiopulmonary disease, other - Sternal wires in place Impression: No acute disease Electronically Signed by: Electronically signed by Rena Polk MD CT/MRI/US Diagnostic Results CT/MRI/US Diagnostic Results : Imaging Test Ordered: Head CT: Negative Last Vital Signs Date Time Temp Pulse Resp B/P (MAP) Pulse Ox O2 Delivery O2 Flow Rate FiO2 09/28/17 12:48 138 15 Non-Rebreather 9.0 09/28/17 12:46 98.2 142/71 100 98.2 Status: improved Disposition: ADMITTED INPATIENT Condition: Serious Referrals: NON PHYSICIAN (PCP) RENA POLK M.D. September 28, 2017 14:49
[2017-09-28] MEDS ORDERED: ACETAMINOPHEN325 M1 ORAL (15:41)
--- NOTE | 2017-09-28 15:57 | History and Physical ---
History of Present Illness General Reason for Hospitalization: Dyspnea/Respdistress Present Illness Allergies: Coded Allergies: No Known Allergies (Unverified , 01/11/16) Medication History Scheduled Amlodipine Besylate (Norvasc), 5 MG ORAL DAILY Aspirin* (Aspirin*), 325 MG ORAL DAILY, (Reported) Atorvastatin Calcium* (Atorvastatin Calcium*), 20 MG ORAL BEDTIME, (Reported) Atorvastatin Calcium* (Lipitor*), 20 MG ORAL BEDTIME, (Reported) Ceftriaxone Sod (Ceftriaxone 1 gm-D5w Bag), 1 GM IVPB DAILY Divalproex Sodium (Depakote Sprinkle), 500 MG PO BID, (Reported) Docusate Sodium* (Docusate Sodium*), 200 MG ORAL DAILY, (Reported) Levetiracetam (Keppra), 10 ML ORAL DAILY, (Reported) Levetiracetam (Keppra), 1,000 MG ORAL DAILY Multivitamin (Multi-Vitamin Daily), 1 EACH PO DAILY, (Reported) Polyvinyl Alcohol (Polyvinyl Alcohol), 15 ML OP QID, (Reported) Potassium Chloride (Potassium Chloride), 20 MEQ ORAL DAILY, (Reported) Scheduled PRN Acetaminophen* (Acetaminophen 325MG Tablet*), 650 MG ORAL Q6H PRN for For Pain, (Reported) Lactulose (Lactulose*), 30 ML ORAL DAILY PRN for Constipation, (Reported) Miscellaneous Medications Cyanocobalamin (Vitamin B-12) (Vitamin B-12), 100 MCG PO, (Reported) Patient History Healthcare decision maker Resuscitation status Advanced Directive on File Physical Exam Last 24 Hour Vital Signs Date Time Temp Pulse Resp B/P (MAP) Pulse Ox O2 Delivery O2 Flow Rate FiO2 09/28/17 12:48 138 15 Non-Rebreather 9.0 09/28/17 12:46 98.2 138 15 142/71 100 Non-Rebreather 9.0 98.2 09/28/17 11:59 98.2 91 15 139/67 100 Non-Rebreather 9.0 98.2 Laboratory Tests Test 09/28/17 12:55 09/28/17 13:30 White Blood Count 6.6 K/UL (4.8-10.8) Red Blood Count 4.89 M/UL (4.70-6.10) Hemoglobin 14.7 G/DL (14.2-18.0) Hematocrit 44.4 % (42.0-52.0) Mean Corpuscular Volume 91 FL (80-99) Mean Corpuscular Hemoglobin 30.0 PG (27.0-31.0) Mean Corpuscular Hemoglobin Concent 33.1 G/DL (32.0-36.0) Red Cell Distribution Width 14.6 % (11.6-14.8) Platelet Count 140 K/UL (150-450) L Mean Platelet Volume 7.3 FL (6.5-10.1) Neutrophils (%) (Auto) 62.8 % (45.0-75.0) Lymphocytes (%) (Auto) 25.4 % (20.0-45.0) Monocytes (%) (Auto) 10.5 % (1.0-10.0) H Eosinophils (%) (Auto) 0.6 % (0.0-3.0) Basophils (%) (Auto) 0.7 % (0.0-2.0) Sodium Level 141 MMOL/L (136-145) Potassium Level 2.3 MMOL/L (3.5-5.1) *L Chloride Level 103 MMOL/L (98-107) Carbon Dioxide Level 31 MMOL/L (21-32) Anion Gap 8 mmol/L (5-15) Blood Urea Nitrogen 8 mg/dL (7-18) Creatinine 0.5 MG/DL (0.55-1.30) L Estimat Glomerular Filtration Rate > 60 mL/min (>60) Glucose Level 98 MG/DL (74-106) Calcium Level 9.0 MG/DL (8.5-10.1) Total Bilirubin 0.6 MG/DL (0.2-1.0) Aspartate Amino Transf (AST/SGOT) 18 U/L (15-37) Alanine Aminotransferase (ALT/SGPT) 9 U/L (12-78) L Alkaline Phosphatase 98 U/L (46-116) Total Protein 7.5 G/DL (6.4-8.2) Albumin 3.1 G/DL (3.4-5.0) L Globulin 4.4 g/dL Albumin/Globulin Ratio 0.7 (1.0-2.7) L Valproic Acid (Depakene) Level 75 MCG/ML (50-100) Urine Color Pale yellow Urine Appearance Slightly cloudy Urine pH 8 (4.5-8.0) Urine Specific [place] 1.010 (1.005-1.035) Urine Protein Negative (NEGATIVE) Urine Glucose (UA) Negative (NEGATIVE) Urine Ketones 3+ (NEGATIVE) H Urine Occult Blood 5+ (NEGATIVE) H Urine Nitrite Negative (NEGATIVE) Urine Bilirubin Negative (NEGATIVE) Urine Urobilinogen 1 MG/DL (0.0-1.0) H Urine Leukocyte Esterase Negative (NEGATIVE) Urine RBC 15-20 /HPF (0 - 0) H Urine WBC 0-2 /HPF (0 - 0) Urine Squamous Epithelial Cells Occasional /LPF Urine Bacteria Occasional /HPF (NONE) Height (Feet): 5 Height (Inches): 7.00 Weight (Pounds): 170 Medications Current Medications Medications (Trade) Dose Ordered Sig/Andra Route PRN Reason Start Time Stop Time Status Last Admin Dose Admin Amlodipine Besylate (Norvasc) 5 mg DAILY ORAL 09/29/17 09:00 10/29/17 08:59 UNV Aspirin (ASA) 325 mg DAILY ORAL 09/29/17 09:00 10/29/17 08:59 UNV Atorvastatin Calcium (Lipitor) 20 mg BEDTIME ORAL 09/28/17 21:00 10/28/17 20:59 UNV Divalproex Sodium (Depakote Sprinkles) 500 mg BID ORAL 09/28/17 18:00 10/28/17 17:59 UNV Lactulose (Cephulac) 20 gm DAILY PRN ORAL Constipation 09/28/17 16:00 10/28/17 15:59 UNV Levetiracetam (Keppra) 1,000 mg DAILY ORAL 09/29/17 09:00 10/29/17 08:59 UNV Potassium Chloride 10 meq/ Sodium Chloride 115 ml @ 115 mls/hr Q1H IVPB 09/28/17 16:00 09/28/17 16:59 Milly Banuelos MD September 28, 2017 15:57
[2017-09-28] MEDS ORDERED: Lactulose 20gm/30ml UDC ORAL PRN (16:00)
[2017-09-28] MEDS ORDERED: Mylanta II UD 30ml ORAL PRN (16:00)
[2017-09-28] MEDS ORDERED: LORazepam Inj 2mg/ml 1ml IV PRN (16:00)
[2017-09-28] MEDS ORDERED: Potassium Chloride 10 MEQ in NS 110 ML IVPB SCH (16:00)
[2017-09-28 17:00] VITALS: BP 124/53
--- NOTE | 2017-09-28 17:08 | Diagnostic Imaging Report ---
Indication: Cough Technique: XRAY Chest 1v Comparison: 08/24/2017 Findings: Low lung volumes. Heart size and mediastinal contours are stable. Patient again noted to be status post median sternotomy. There is patchy opacity at the left base which may be related to atelectasis or scarring however developing infiltrate not entirely excluded. There is no significant pleural effusion. No definite pneumothorax. No acute osseous abnormality seen. Impression: Patchy left basilar opacities may be related to atelectasis or scarring. Correlate clinically to exclude the possibility of developing infiltrate. Study obtained via the emergency department however patient admitted to the hospital at time of dictation of the final report.
[2017-09-28 18:40] VITALS: BP 122/47
[2017-09-28 20:00] VITALS: BP 141/103
[2017-09-28] MEDS ORDERED: Miralax 17gm pkt ORAL PRN (21:00)
[2017-09-28] MEDS ORDERED: Zolpidem 5mg tab ORAL PRN (21:00)
[2017-09-28] MEDS: Depakote 125mg Sprinkles ORAL SCH (21:57)
[2017-09-28] MEDS: Heparin 5000 units/ml inj SUBQ SCH (21:58)
[2017-09-29] VITALS: BP 137/94
[2017-09-29 04:00] VITALS: BP 113/59
[2017-09-29 08:00] VITALS: BP 131/62
[2017-09-29] MEDS ORDERED: levETIRAcetam 500mg/5ml Liquid ORAL SCH (09:00)
[2017-09-29] MEDS: Heparin 5000 units/ml inj SUBQ SCH ×2 (09:00→21:55)
[2017-09-29] MEDS: Depakote 125mg Sprinkles ORAL SCH (09:00)
[2017-09-29 11:12] LABS: BASOPHILS % (AUTO) 0.9 % (0.0-2.0); EOSINOPHILS % (AUTO) 0.5 % (0.0-3.0); HEMOGLOBIN 14.9 G/DL (14.2-18.0); LYMPHOCYTES % (AUTO) 24.5 % (20.0-45.0); MEAN CORPUSCULAR VOLUME 92 FL (80-99); MONOCYTES % (AUTO) 13.3 % (1.0-10.0); NEUTROPHILS % (AUTO) 60.8 % (45.0-75.0); PLATELET COUNT 133 K/UL (150-450); RED BLOOD COUNT 5.02 M/UL (4.70-6.10); RED CELL DISTRIBUTION WIDTH 14.3 % (11.6-14.8); WHITE BLOOD COUNT 7.6 K/UL (4.8-10.8)
[2017-09-29 11:32] LABS: ALANINE AMINOTRANSFERASE 13 U/L (12-78); ALBUMIN 3.2 G/DL (3.4-5.0); ALBUMIN/GLOBULIN RATIO 0.7 (1.0-2.7); ALKALINE PHOSPHATASE 94 U/L (46-116); ANION GAP 9 mmol/L (5-15); ASPARTATE AMINO TRANSFERASE 19 U/L (15-37); BILIRUBIN,TOTAL 0.8 MG/DL (0.2-1.0); BLOOD UREA NITROGEN 10 mg/dL (7-18); CALCIUM 9.6 MG/DL (8.5-10.1); CARBON DIOXIDE 31 MMOL/L (21-32); CHLORIDE 107 MMOL/L (98-107); CREATININE 0.6 MG/DL (0.55-1.30); POTASSIUM 3.2 MMOL/L (3.5-5.1); SODIUM 147 MMOL/L (136-145)
--- NOTE | 2017-09-29 11:33 | History and Physical ---
History of Present Illness General Date patient seen: September 29, 2017 Time patient seen: 10:30 Reason for Hospitalization: Dyspnea/Respdistress Present Illness HPI Patient presents emergency department today with generalized weakness and recurrent seizures. Patient had a seizure at the facility today and EMS is contacted. Patient was brought here further evaluation. Patient received Versed in route but continued to have seizures while arrival. Patient was unable to provide any history as he was confused and seizing. History was taken from medical records and discussion paramedics. Symptoms noted to be highly severe.No other modifying factors. No other associated signs and symptoms. No other complaints were noted. Allergies: Coded Allergies: No Known Allergies (Unverified , 01/11/16) Medication History Scheduled Amlodipine Besylate (Norvasc), 5 MG ORAL DAILY Aspirin* (Aspirin*), 325 MG ORAL DAILY, (Reported) Atorvastatin Calcium* (Atorvastatin Calcium*), 20 MG ORAL BEDTIME, (Reported) Atorvastatin Calcium* (Lipitor*), 20 MG ORAL BEDTIME, (Reported) Ceftriaxone Sod (Ceftriaxone 1 gm-D5w Bag), 1 GM IVPB DAILY Divalproex Sodium (Depakote Sprinkle), 500 MG PO BID, (Reported) Docusate Sodium* (Docusate Sodium*), 200 MG ORAL DAILY, (Reported) Levetiracetam (Keppra), 10 ML ORAL DAILY, (Reported) Levetiracetam (Keppra), 1,000 MG ORAL DAILY Multivitamin (Multi-Vitamin Daily), 1 EACH PO DAILY, (Reported) Polyvinyl Alcohol (Polyvinyl Alcohol), 15 ML OP QID, (Reported) Potassium Chloride (Potassium Chloride), 20 MEQ ORAL DAILY, (Reported) Scheduled PRN Acetaminophen* (Acetaminophen 325MG Tablet*), 650 MG ORAL Q6H PRN for For Pain, (Reported) Lactulose (Lactulose*), 30 ML ORAL DAILY PRN for Constipation, (Reported) Miscellaneous Medications Cyanocobalamin (Vitamin B-12) (Vitamin B-12), 100 MCG PO, (Reported) Patient History Healthcare decision maker Resuscitation status Full Code Advanced Directive on File Physical Exam Last 24 Hour Vital Signs Date Time Temp Pulse Resp B/P (MAP) Pulse Ox O2 Delivery O2 Flow Rate FiO2 09/29/17 09:00 83 131/62 09/29/17 08:00 97.2 83 18 131/62 99 Nasal Cannula 2.0 97.2 09/29/17 04:00 53 09/29/17 04:00 97.1 71 20 113/59 99 Nasal Cannula 2.0 97.1 09/29/17 00:00 98.2 57 18 137/94 95 Nasal Cannula 2.0 98.2 09/28/17 20:00 98.1 66 20 141/103 92 Nasal Cannula 2.0 98.1 09/28/17 20:00 74 09/28/17 18:40 97.0 67 18 122/47 99 Nasal Cannula 2.0 97.0 09/28/17 18:20 98.2 76 13 124/53 100 Nasal Cannula 2.0 98.2 09/28/17 17:00 76 13 124/53 100 Nasal Cannula 2.0 09/28/17 14:30 74 13 92/49 99 Non-Rebreather 9.0 09/28/17 12:48 138 15 Non-Rebreather 9.0 09/28/17 12:46 98.2 138 15 142/71 100 Non-Rebreather 9.0 98.2 09/28/17 11:59 98.2 91 15 139/67 100 Non-Rebreather 9.0 98.2 Intake and Output 09/28/17 09/29/17 19:00 07:00 Intake Total 1000 ml Balance 1000 ml Intake Other 1000 ml # Voids 2 # Bowel Movements 2 Laboratory Tests Test 09/28/17 12:55 09/28/17 13:30 09/29/17 11:00 White Blood Count 6.6 K/UL (4.8-10.8) 7.6 K/UL (4.8-10.8) Red Blood Count 4.89 M/UL (4.70-6.10) 5.02 M/UL (4.70-6.10) Hemoglobin 14.7 G/DL (14.2-18.0) 14.9 G/DL (14.2-18.0) Hematocrit 44.4 % (42.0-52.0) 46.0 % (42.0-52.0) Mean Corpuscular Volume 91 FL (80-99) 92 FL (80-99) Mean Corpuscular Hemoglobin 30.0 PG (27.0-31.0) 29.7 PG (27.0-31.0) Mean Corpuscular Hemoglobin Concent 33.1 G/DL (32.0-36.0) 32.4 G/DL (32.0-36.0) Red Cell Distribution Width 14.6 % (11.6-14.8) 14.3 % (11.6-14.8) Platelet Count 140 K/UL (150-450) L 133 K/UL (150-450) L Mean Platelet Volume 7.3 FL (6.5-10.1) 6.6 FL (6.5-10.1) Neutrophils (%) (Auto) 62.8 % (45.0-75.0) 60.8 % (45.0-75.0) Lymphocytes (%) (Auto) 25.4 % (20.0-45.0) 24.5 % (20.0-45.0) Monocytes (%) (Auto) 10.5 % (1.0-10.0) H 13.3 % (1.0-10.0) H Eosinophils (%) (Auto) 0.6 % (0.0-3.0) 0.5 % (0.0-3.0) Basophils (%) (Auto) 0.7 % (0.0-2.0) 0.9 % (0.0-2.0) Sodium Level 141 MMOL/L (136-145) Pending Potassium Level 2.3 MMOL/L (3.5-5.1) *L Pending Chloride Level 103 MMOL/L (98-107) Pending Carbon Dioxide Level 31 MMOL/L (21-32) Pending Anion Gap 8 mmol/L (5-15) Blood Urea Nitrogen 8 mg/dL (7-18) Pending Creatinine 0.5 MG/DL (0.55-1.30) L Pending Estimat Glomerular Filtration Rate > 60 mL/min (>60) Pending Glucose Level 98 MG/DL (74-106) Pending Calcium Level 9.0 MG/DL (8.5-10.1) Pending Total Bilirubin 0.6 MG/DL (0.2-1.0) Pending Aspartate Amino Transf (AST/SGOT) 18 U/L (15-37) Pending Alanine Aminotransferase (ALT/SGPT) 9 U/L (12-78) L Pending Alkaline Phosphatase 98 U/L (46-116) Pending Total Protein 7.5 G/DL (6.4-8.2) Pending Albumin 3.1 G/DL (3.4-5.0) L Pending Globulin 4.4 g/dL Pending Albumin/Globulin Ratio 0.7 (1.0-2.7) L Valproic Acid (Depakene) Level 75 MCG/ML (50-100) Urine Color Pale yellow Urine Appearance Slightly cloudy Urine pH 8 (4.5-8.0) Urine Specific [place] 1.010 (1.005-1.035) Urine Protein Negative (NEGATIVE) Urine Glucose (UA) Negative (NEGATIVE) Urine Ketones 3+ (NEGATIVE) H Urine Occult Blood 5+ (NEGATIVE) H Urine Nitrite Negative (NEGATIVE) Urine Bilirubin Negative (NEGATIVE) Urine Urobilinogen 1 MG/DL (0.0-1.0) H Urine Leukocyte Esterase Negative (NEGATIVE) Urine RBC 15-20 /HPF (0 - 0) H Urine WBC 0-2 /HPF (0 - 0) Urine Squamous Epithelial Cells Occasional /LPF Urine Bacteria Occasional /HPF (NONE) Height (Feet): 5 Height (Inches): 7.00 Weight (Pounds): 170 Medications Current Medications Medications (Trade) Dose Ordered Sig/Andra Route PRN Reason Start Time Stop Time Status Last Admin Dose Admin Acetaminophen (Tylenol) 650 mg Q4H PRN ORAL T>100.5 09/28/17 16:00 10/28/17 15:59 Al Hydroxide/Mg Hydroxide (Mylanta II) 30 ml Q6H PRN ORAL dyspepsia 09/28/17 16:00 10/28/17 15:59 Amlodipine Besylate (Norvasc) 5 mg DAILY ORAL 09/29/17 09:00 10/29/17 08:59 09/29/17 09:00 Aspirin (ASA) 325 mg DAILY ORAL 09/29/17 09:00 10/29/17 08:59 09/29/17 09:00 Atorvastatin Calcium (Lipitor) 20 mg BEDTIME ORAL 09/28/17 21:00 10/28/17 20:59 09/28/17 21:56 Dextrose (Dextrose 50%) 25 ml PRN IV Hypoglycemia 09/28/17 16:15 10/28/17 16:14 Dextrose (Dextrose 50%) 50 ml PRN IV hypoglycemia 09/28/17 16:15 10/28/17 16:14 Divalproex Sodium (Depakote Sprinkles) 500 mg Q12HR ORAL 09/28/17 21:00 10/28/17 20:59 09/29/17 09:00 Heparin Sodium (Porcine) (Heparin 5000 units/ml) 5,000 units EVERY 12 HOURS SUBQ 09/28/17 21:00 10/28/17 20:59 09/29/17 09:00 Lactulose (Cephulac) 20 gm DAILYPRN PRN ORAL Constipation 09/28/17 16:00 10/28/17 15:59 Levetiracetam (Keppra) 1,000 mg DAILY ORAL 09/29/17 09:00 10/29/17 08:59 09/29/17 09:00 Lorazepam (Ativan 2mg/ml 1ml) 2 mg Q1H PRN IV SEIZURES 09/28/17 16:00 10/05/17 15:59 Ondansetron HCl (Zofran) 4 mg Q6H PRN IVP Nausea & Vomiting 09/28/17 16:00 10/28/17 15:59 Polyethylene Glycol (Miralax) 17 gm HSPRN PRN ORAL Constipation 09/28/17 21:00 10/28/17 20:59 Zolpidem Tartrate (Ambien) 5 mg HSPRN PRN ORAL Insomnia 09/28/17 21:00 10/05/17 20:59 Shiva NanceLiliana viveros NP September 29, 2017 11:33
--- NOTE | 2017-09-29 11:44 | Pulmonology Progress Note ---
Assessment/Plan Assessment/Plan ASSESSMENT Acute toxic metabolic encephalopathy secondary to status epilepticus Status epilepticus Seizure disorder Acute hypokalemia Hypertension Hyperlipidemia COPD PLAN OF CARE Telemetry floor seizure precautions CT head - no acute intracranial pathology no further evidence of seizures on Keppra and Depakote, Depakote level therapeutic potassium further replaced 500 cc D5W bolus check K, Na and Mg in am blood pressure management with calcium channel thalia, stable continue statin supplemental oxygen and pulmonary toilet as needed, no evidence of COPD exacerbation DVT prophylaxis bowel regimen fall precautions PT/OT noted hypertrophic toes B foot, possible onychomycosis, podiatry eval transfer to Med Surg floor DNR/DNI status case discussed and evaluated by supervising physician Subjective Allergies: Coded Allergies: No Known Allergies (Unverified , 01/11/16) Subjective no further seizures SR on tele no signs of distress K better, still low-3.2 Objective Last 24 Hour Vital Signs Date Time Temp Pulse Resp B/P (MAP) Pulse Ox O2 Delivery O2 Flow Rate FiO2 09/29/17 09:00 83 131/62 09/29/17 08:00 97.2 83 18 131/62 99 Nasal Cannula 2.0 97.2 09/29/17 04:00 53 09/29/17 04:00 97.1 71 20 113/59 99 Nasal Cannula 2.0 97.1 09/29/17 00:00 98.2 57 18 137/94 95 Nasal Cannula 2.0 98.2 09/28/17 20:00 98.1 66 20 141/103 92 Nasal Cannula 2.0 98.1 09/28/17 20:00 74 09/28/17 18:40 97.0 67 18 122/47 99 Nasal Cannula 2.0 97.0 09/28/17 18:20 98.2 76 13 124/53 100 Nasal Cannula 2.0 98.2 09/28/17 17:00 76 13 124/53 100 Nasal Cannula 2.0 09/28/17 14:30 74 13 92/49 99 Non-Rebreather 9.0 09/28/17 12:48 138 15 Non-Rebreather 9.0 09/28/17 12:46 98.2 138 15 142/71 100 Non-Rebreather 9.0 98.2 09/28/17 11:59 98.2 91 15 139/67 100 Non-Rebreather 9.0 98.2 Intake and Output 09/28/17 09/29/17 19:00 07:00 Intake Total 1000 ml Balance 1000 ml Intake Other 1000 ml # Voids 2 # Bowel Movements 2 General Appearance: no acute distress, other - poorly responsive HEENT: normocephalic, atraumatic, anicteric Respiratory/Chest: lungs clear, no respiratory distress Cardiovascular: normal rate, regular rhythm - SR on tele Abdomen: normal bowel sounds, soft, non tender Extremities: no edema, pedal pulses normal, other - hyperthrophic toe nails B foot, Neurologic/Psychiatric: abnormal gait, other - poorly responsive Musculoskeletal: normal muscle bulk Laboratory Tests 09/28/17 12:55: White Blood Count 6.6, Red Blood Count 4.89, Hemoglobin 14.7, Hematocrit 44.4, Mean Corpuscular Volume 91, Mean Corpuscular Hemoglobin 30.0, Mean Corpuscular Hemoglobin Concent 33.1, Red Cell Distribution Width 14.6, Platelet Count 140L, Mean Platelet Volume 7.3, Neutrophils (%) (Auto) 62.8, Lymphocytes (%) (Auto) 25.4, Monocytes (%) (Auto) 10.5H, Eosinophils (%) (Auto) 0.6, Basophils (%) ( Auto) 0.7, Sodium Level 141, Potassium Level 2.3*L, Chloride Level 103, Carbon Dioxide Level 31, Anion Gap 8, Blood Urea Nitrogen 8, Creatinine 0.5L, Estimat Glomerular Filtration Rate > 60, Glucose Level 98, Calcium Level 9.0, Total Bilirubin 0.6, Aspartate Amino Transf (AST/SGOT) 18, Alanine Aminotransferase ( ALT/SGPT) 9L, Alkaline Phosphatase 98, Total Protein 7.5, Albumin 3.1L, Globulin 4.4, Albumin/Globulin Ratio 0.7L, Valproic Acid (Depakene) Level 75 09/28/17 13:30: Urine Color Pale yellow, Urine Appearance Slightly cloudy, Urine pH 8, Urine Specific [place] 1.010, Urine Protein Negative, Urine Glucose (UA) Negative, Urine Ketones 3+H, Urine Occult Blood 5+H, Urine Nitrite Negative, Urine Bilirubin Negative, Urine Urobilinogen 1H, Urine Leukocyte Esterase Negative, Urine RBC 15-20H, Urine WBC 0-2, Urine Squamous Epithelial Cells Occasional, Urine Bacteria Occasional 09/29/17 11:00: White Blood Count 7.6, Red Blood Count 5.02, Hemoglobin 14.9, Hematocrit 46.0, Mean Corpuscular Volume 92, Mean Corpuscular Hemoglobin 29.7, Mean Corpuscular Hemoglobin Concent 32.4, Red Cell Distribution Width 14.3, Platelet Count 133L, Mean Platelet Volume 6.6, Neutrophils (%) (Auto) 60.8, Lymphocytes (%) (Auto) 24.5, Monocytes (%) (Auto) 13.3H, Eosinophils (%) (Auto) 0.5, Basophils (%) ( Auto) 0.9, Sodium Level [Pending], Potassium Level [Pending], Chloride Level [ Pending], Carbon Dioxide Level [Pending], Blood Urea Nitrogen [Pending], Creatinine [Pending], Estimat Glomerular Filtration Rate [Pending], Glucose Level [Pending], Calcium Level [Pending], Total Bilirubin [Pending], Aspartate Amino Transf (AST/SGOT) [Pending], Alanine Aminotransferase (ALT/SGPT) [Pending] , Alkaline Phosphatase [Pending], Total Protein [Pending], Albumin [Pending], Globulin [Pending] Current Medications Medications (Trade) Dose Ordered Sig/Andra Route PRN Reason Start Time Stop Time Status Last Admin Dose Admin Acetaminophen (Tylenol) 650 mg Q4H PRN ORAL T>100.5 09/28/17 16:00 10/28/17 15:59 Al Hydroxide/Mg Hydroxide (Mylanta II) 30 ml Q6H PRN ORAL dyspepsia 09/28/17 16:00 10/28/17 15:59 Amlodipine Besylate (Norvasc) 5 mg DAILY ORAL 09/29/17 09:00 10/29/17 08:59 09/29/17 09:00 Aspirin (ASA) 325 mg DAILY ORAL 09/29/17 09:00 10/29/17 08:59 09/29/17 09:00 Atorvastatin Calcium (Lipitor) 20 mg BEDTIME ORAL 09/28/17 21:00 10/28/17 20:59 09/28/17 21:56 Dextrose (Dextrose 50%) 25 ml PRN IV Hypoglycemia 09/28/17 16:15 10/28/17 16:14 Dextrose (Dextrose 50%) 50 ml PRN IV hypoglycemia 09/28/17 16:15 10/28/17 16:14 Divalproex Sodium (Depakote Sprinkles) 500 mg Q12HR ORAL 09/28/17 21:00 10/28/17 20:59 09/29/17 09:00 Heparin Sodium (Porcine) (Heparin 5000 units/ml) 5,000 units EVERY 12 HOURS SUBQ 09/28/17 21:00 10/28/17 20:59 09/29/17 09:00 Lactulose (Cephulac) 20 gm DAILYPRN PRN ORAL Constipation 09/28/17 16:00 10/28/17 15:59 Levetiracetam (Keppra) 1,000 mg DAILY ORAL 09/29/17 09:00 10/29/17 08:59 09/29/17 09:00 Lorazepam (Ativan 2mg/ml 1ml) 2 mg Q1H PRN IV SEIZURES 09/28/17 16:00 10/05/17 15:59 Ondansetron HCl (Zofran) 4 mg Q6H PRN IVP Nausea & Vomiting 09/28/17 16:00 10/28/17 15:59 Polyethylene Glycol (Miralax) 17 gm HSPRN PRN ORAL Constipation 09/28/17 21:00 10/28/17 20:59 Zolpidem Tartrate (Ambien) 5 mg HSPRN PRN ORAL Insomnia 09/28/17 21:00 10/05/17 20:59 Shiva (Liliana Mcgill NP September 29, 2017 11:44
[2017-09-29 12:00] VITALS: BP 141/81
[2017-09-29] MEDS ORDERED: Albuterol/Ipratropium 3ml neb HHN PRN (12:30)
[2017-09-29] MEDS ORDERED: Mylanta II UD 30ml ORAL PRN (14:07)
[2017-09-29] MEDS ORDERED: LORazepam Inj 2mg/ml 1ml IV PRN (14:09)
[2017-09-29] MEDS ORDERED: Lactulose 20gm/30ml UDC ORAL PRN (14:09)
[2017-09-29 15:59] VITALS: BP 141/89
[2017-09-29 19:13] VITALS: BP 124/54
[2017-09-29] MEDS ORDERED: Miralax 17gm pkt ORAL PRN (21:00)
[2017-09-29] MEDS ORDERED: Zolpidem 5mg tab ORAL PRN (21:00)
--- NOTE | 2017-09-29 23:30 | Electroencephalogram ---
DATE OF PROCEDURE: 09/28/2017 REQUESTING PHYSICIAN: Milly Banuelos M.D. DATE OF TRACIN09/28/2017 HISTORY: This EEG was performed on a 66-year-old gentleman with a history of dementia and a seizure disorder. The patient presented with multiple seizures and thus this EEG was performed to evaluate the patient for the degree and type of cerebral dysfunction and to exclude ongoing ictal or interictal phenomena. The patient is on Depakote and Keppra in unknown doses for seizure prophylaxis. TECHNICAL NOTE: This EEG was performed on a [employer] with electrodes placed on the scalp according to the International 10-20 system. [id number] and [id number] montages were used. The EEG was technically satisfactory and was performed while the patient was in an unresponsive state. OBSERVATIONS: In the unresponsive state, the background activity consisted of 4-5 Hz theta with intermixed delta frequencies. Throughout the tracing, semi-periodic lateralized epileptiform discharges, phase reversing over C3-F7-T3 were seen. At times, these discharges were associated with right upper extremity jerking and at other times with no clinical manifestations. IMPRESSION: This is an abnormal EEG characterized by: 1. Slowing of the background in the 4-5 Hz theta and delta range. 2. The presence of semi-periodic lateralized epileptiform discharges phase reversing over C3-F7-T3 sometimes associated with right upper extremity jerking and at other times not. COMMENT: This study is consistent with: 1. An encephalopathy of severe degree. 2. Epileptiform discharges emanating from the left centrotemporal region associated with focal motor seizures at times. Clinical correlation is recommended. Kendell Black M.D., M.S.P.H. DR: STACEY JOB#: [id number] JOYCE
[2017-09-30 00:06] VITALS: BP 105/61
[2017-09-30] MEDS: Depakote 125mg Sprinkles ORAL SCH ×3 (02:05→20:55)
[2017-09-30 04:00] VITALS: BP 167/81
[2017-09-30 08:00] VITALS: BP 148/74
[2017-09-30] MEDS: Heparin 5000 units/ml inj SUBQ SCH ×2 (09:00→21:02)
[2017-09-30] MEDS: levETIRAcetam 500mg/5ml Liquid ORAL SCH (09:17)
--- NOTE | 2017-09-30 09:27 | Pulmonology Progress Note ---
Assessment/Plan Assessment/Plan ASSESSMENT Acute toxic metabolic encephalopathy secondary to status epilepticus on chronic severe encephalopathy hepatic encephalopathy Status epilepticus Seizure disorder Acute hypokalemia Hypertension Hyperlipidemia COPD PLAN OF CARE MS floor seizure precautions CT head - no acute intracranial pathology no further evidence of seizures on Keppra and Depakote, Depakote level therapeutic neuro follows EEG c/w severe degree of encephalopathy potassium further replaced 09/29 500 cc D5W bolus09/29 labs pending for this am check ammonia blood pressure management with calcium channel thalia, stable, Clonidine prn continue statin supplemental oxygen and pulmonary toilet as needed, no evidence of COPD exacerbation DVT prophylaxis bowel regimen fall precautions PT/OT noted hypertrophic toes B foot, possible onychomycosis, podiatry eval ( called) no IV access, per charge nurse unable to place currently not in need for IV meds, may need PICC if need for IV meds strict aspiration precautions, NG tube feeding DNR/DNI status Addendum: labs available, K still low, replace, Mg OK high ammonia, started lactulose case discussed and evaluated by supervising physician Subjective Allergies: Coded Allergies: No Known Allergies (Unverified , 01/11/16) Subjective no further seizures transferred to [place] remains altered labs pending for this am Objective Last 24 Hour Vital Signs Date Time Temp Pulse Resp B/P (MAP) Pulse Ox O2 Delivery O2 Flow Rate FiO2 09/30/17 08:00 98.6 101 18 148/74 96 Nasal Cannula 2.0 98.6 101 09/30/17 07:37 94 Nasal Cannula 3.0 32 09/30/17 07:37 Nasal Cannula 3.0 32 09/30/17 07:37 107 20 Nasal Cannula 3.0 32 09/30/17 04:00 98.8 116 20 167/81 97 Nasal Cannula 98.8 118 09/30/17 00:06 100.0 111 20 105/61 97 Nasal Cannula 100.0 110 09/29/17 20:00 100.1 100.1 09/29/17 19:13 100.8 120 20 124/54 92 Nasal Cannula 100.8 119 09/29/17 15:59 98.6 127 20 141/89 96 98.6 09/29/17 12:00 97.9 94 18 141/81 99 Nasal Cannula 2.0 97.9 Intake and Output 09/29/17 09/30/17 19:00 07:00 Intake Total 250 ml Balance 250 ml Intake Free Water 100 ml Tube Feeding 150 ml # Voids 3 5 Objective General Appearance: no acute distress, poorly responsive HEENT: normocephalic, atraumatic, anicteric, NGT with TF Respiratory/Chest: lungs clear, no respiratory distress Cardiovascular: normal rate, Abdomen: normal bowel sounds, soft, non tender Extremities: no edema, pedal pulses normal, hypertrophic toe nails B foot, Neurologic/Psychiatric: drowsy, poorly responsive Musculoskeletal: normal muscle bulk Laboratory Tests 09/29/17 11:00: White Blood Count 7.6, Red Blood Count 5.02, Hemoglobin 14.9, Hematocrit 46.0, Mean Corpuscular Volume 92, Mean Corpuscular Hemoglobin 29.7, Mean Corpuscular Hemoglobin Concent 32.4, Red Cell Distribution Width 14.3, Platelet Count 133L, Mean Platelet Volume 6.6, Neutrophils (%) (Auto) 60.8, Lymphocytes (%) (Auto) 24.5, Monocytes (%) (Auto) 13.3H, Eosinophils (%) (Auto) 0.5, Basophils (%) ( Auto) 0.9, Sodium Level 147H, Potassium Level 3.2L, Chloride Level 107, Carbon Dioxide Level 31, Anion Gap 9, Blood Urea Nitrogen 10, Creatinine 0.6, Estimat Glomerular Filtration Rate > 60, Glucose Level 88, Calcium Level 9.6, Total Bilirubin 0.8, Aspartate Amino Transf (AST/SGOT) 19, Alanine Aminotransferase ( ALT/SGPT) 13, Alkaline Phosphatase 94, Total Protein 7.8, Albumin 3.2L, Globulin 4.6, Albumin/Globulin Ratio 0.7L Current Medications Medications (Trade) Dose Ordered Sig/Andra Route PRN Reason Start Time Stop Time Status Last Admin Dose Admin Acetaminophen (Tylenol) 650 mg Q4H PRN ORAL T>100.5 09/29/17 14:07 10/28/17 14:06 Al Hydroxide/Mg Hydroxide (Mylanta II) 30 ml Q6H PRN ORAL dyspepsia 09/29/17 14:07 10/28/17 14:06 Albuterol/ Ipratropium (Albuterol/ Ipratropium) 3 ml Q4H PRN HHN Shortness of Breath 09/29/17 14:08 10/04/17 14:07 Amlodipine Besylate (Norvasc) 5 mg DAILY NG 09/30/17 09:00 10/30/17 08:59 Aspirin (ASA) 325 mg DAILY ORAL 09/30/17 09:00 10/29/17 08:59 Atorvastatin Calcium (Lipitor) 20 mg BEDTIME ORAL 09/29/17 21:00 10/28/17 20:59 09/30/17 02:04 Dextrose (Dextrose 50%) 25 ml STAT PRN IV HYPOGLYCEMIA BS 61-69 09/29/17 14:08 10/29/17 14:07 Dextrose (Dextrose 50%) 50 ml STAT PRN IV HYPOGLYCEMIA BS less than 60 09/29/17 14:08 10/29/17 14:07 Divalproex Sodium (Depakote Sprinkles) 500 mg Q12HR ORAL 09/29/17 21:00 10/28/17 20:59 09/30/17 02:05 Heparin Sodium (Porcine) (Heparin 5000 units/ml) 5,000 units EVERY 12 HOURS SUBQ 09/29/17 21:00 10/28/17 20:59 09/29/17 21:55 Lactulose (Cephulac) 20 gm DAILYPRN PRN ORAL Constipation (AFTER MIRALAX) 09/29/17 14:09 10/28/17 14:08 Levetiracetam (Keppra) 1,000 mg DAILY ORAL 09/30/17 09:00 10/29/17 08:59 Lorazepam (Ativan 2mg/ml 1ml) 2 mg Q1H PRN IV SEIZURES 09/29/17 14:09 10/05/17 14:08 Ondansetron HCl (Zofran) 4 mg Q6H PRN IVP Nausea & Vomiting 09/29/17 14:09 10/28/17 14:08 Polyethylene Glycol (Miralax) 17 gm HSPRN PRN ORAL Constipation (GIVE FIRST) 09/29/17 21:00 10/28/17 20:59 Zolpidem Tartrate (Ambien) 5 mg HSPRN PRN ORAL Insomnia 09/29/17 21:00 10/05/17 20:59 Liliana Shannon NP ([facility]) September 30, 2017 09:27
[2017-09-30 09:35] LABS: BASOPHILS % (AUTO) 0.6 % (0.0-2.0); HEMATOCRIT 41.4 % (42.0-52.0); LYMPHOCYTES % (AUTO) 14.1 % (20.0-45.0); MEAN CORPUSCULAR VOLUME 92 FL (80-99); MONOCYTES % (AUTO) 14.9 % (1.0-10.0); NEUTROPHILS % (AUTO) 70.4 % (45.0-75.0); PLATELET COUNT 125 K/UL (150-450); RED BLOOD COUNT 4.51 M/UL (4.70-6.10); RED CELL DISTRIBUTION WIDTH 14.4 % (11.6-14.8); WHITE BLOOD COUNT 11.4 K/UL (4.8-10.8)
[2017-09-30 10:11] LABS: ANION GAP 10 mmol/L (5-15); BLOOD UREA NITROGEN 13 mg/dL (7-18); CARBON DIOXIDE 28 MMOL/L (21-32); CHLORIDE 108 MMOL/L (98-107); CREATININE 0.6 MG/DL (0.55-1.30); SODIUM 147 MMOL/L (136-145)
[2017-09-30 10:24] LABS: POTASSIUM 2.3 MMOL/L (3.5-5.1)
--- NOTE | 2017-09-30 11:57 | Cardiology Report ---
APPROVED REPORT EKG Measurement Heart [id number] Normal sinus rhythm Voltage criteria for left ventricular hypertrophy Marked ST abnormality, possible lateral subendocardial injury Abnormal ECG
[2017-09-30 12:00] VITALS: BP 117/58
[2017-09-30] MEDS: Lactulose 20gm/30ml UDC NG SCH ×2 (12:28→18:22)
[2017-09-30] MEDS: Albuterol/Ipratropium 3ml neb HHN PRN (14:49)
[2017-09-30 16:00] VITALS: BP 100/57
[2017-09-30 20:00] VITALS: BP 154/66
[2017-10-01] VITALS: BP 103/57
[2017-10-01 04:00] VITALS: BP 114/64
[2017-10-01 08:00] VITALS: BP 134/68
[2017-10-01] MEDS: Lactulose 20gm/30ml UDC NG SCH ×3 (08:32→17:23)
[2017-10-01] MEDS: Depakote 125mg Sprinkles ORAL SCH ×2 (08:32→21:04)
[2017-10-01] MEDS: levETIRAcetam 500mg/5ml Liquid ORAL SCH (08:32)
[2017-10-01] MEDS: Heparin 5000 units/ml inj SUBQ SCH ×2 (08:36→21:00)
[2017-10-01 12:00] VITALS: BP 132/71
[2017-10-01 16:06] VITALS: BP 132/79
--- NOTE | 2017-10-01 19:08 | Pulmonology Progress Note ---
Assessment/Plan Problems: (1) Sepsis (2) DNR (do not resuscitate) (3) Status post CVA (4) chronic seizure disorder, exacerbation Assessment/Plan castillo culture iv abx Neuro evaluation medical social consultant to obtain family information. "pt is comfort care only". Needs to be on hospice. Subjective ROS Limited/Unobtainable: Yes Interval Events: deep coma Constitutional: Reports: no symptoms HEENT: Repors: no symptoms Allergies: Coded Allergies: No Known Allergies (Unverified , 01/11/16) Objective Last 24 Hour Vital Signs Date Time Temp Pulse Resp B/P (MAP) Pulse Ox O2 Delivery O2 Flow Rate FiO2 10/01/17 16:06 97.5 112 20 132/79 94 Nasal Cannula 2.0 97.5 10/01/17 12:00 97.7 103 20 132/71 97 Nasal Cannula 2.0 97.7 10/01/17 09:20 94 Nasal Cannula 3.0 32 10/01/17 09:20 100 20 Nasal Cannula 3.0 32 10/01/17 09:20 Nasal Cannula 3.0 32 10/01/17 08:33 91 134/68 10/01/17 08:00 96.3 91 20 134/68 94 Nasal Cannula 2.0 96.3 10/01/17 04:00 99.1 85 16 114/64 95 Nasal Cannula 2.0 99.1 10/01/17 00:00 99.1 91 18 103/57 95 Nasal Cannula 2.0 99.1 09/30/17 20:00 99.9 104 20 154/66 93 Nasal Cannula 2.0 99.9 09/30/17 19:30 102 20 Nasal Cannula 3.0 32 09/30/17 19:30 Nasal Cannula 3.0 32 09/30/17 19:30 95 Nasal Cannula 3.0 32 Intake and Output 09/30/17 10/01/17 19:00 07:00 Intake Total 80 ml 520 ml Balance 80 ml 520 ml Intake Free Water 50 ml 160 ml Tube Feeding 30 ml 360 ml # Voids 2 5 # Bowel Movements 1 5 General Appearance: WD/WN, cachetic HEENT: normocephalic Respiratory/Chest: chest wall non-tender, lungs clear Cardiovascular: normal peripheral pulses, normal rate Abdomen: normal bowel sounds, soft, non tender Genitourinary: normal external genitalia Skin: no rash Neurologic/Psychiatric: abnormal CN, unresponsiveness Microbiology Date/Time Source Procedure Growth Status 09/28/17 22:00 Nose MRSA Culture - Final NO METHICILLIN RESISTANT STAPH AUREUS... Complete 09/28/17 22:00 Rectal Mucosa VRE Culture - Final Enterococcus Faecium - Vre Complete Current Medications Medications (Trade) Dose Ordered Sig/Andra Route PRN Reason Start Time Stop Time Status Last Admin Dose Admin Acetaminophen (Tylenol) 650 mg Q4H PRN ORAL T>100.5 09/29/17 14:07 10/28/17 14:06 Al Hydroxide/Mg Hydroxide (Mylanta II) 30 ml Q6H PRN ORAL dyspepsia 09/29/17 14:07 10/28/17 14:06 Albuterol/ Ipratropium (Albuterol/ Ipratropium) 3 ml Q4H PRN HHN Shortness of Breath 09/29/17 14:08 10/04/17 14:07 09/30/17 14:49 Amlodipine Besylate (Norvasc) 5 mg DAILY NG 09/30/17 09:00 10/30/17 08:59 10/01/17 08:33 Aspirin (ASA) 325 mg DAILY ORAL 09/30/17 09:00 10/29/17 08:59 10/01/17 08:32 Atorvastatin Calcium (Lipitor) 20 mg BEDTIME ORAL 09/29/17 21:00 10/28/17 20:59 09/30/17 20:54 Clonidine HCl (Catapres Tab) 0.1 mg Q6H PRN ORAL sbp above 160 09/30/17 09:30 10/30/17 09:29 Dextrose (Dextrose 50%) 25 ml STAT PRN IV HYPOGLYCEMIA BS 61-69 09/29/17 14:08 10/29/17 14:07 Dextrose (Dextrose 50%) 50 ml STAT PRN IV HYPOGLYCEMIA BS less than 60 09/29/17 14:08 10/29/17 14:07 Divalproex Sodium (Depakote Sprinkles) 500 mg Q12HR ORAL 09/29/17 21:00 10/28/17 20:59 10/01/17 08:32 Heparin Sodium (Porcine) (Heparin 5000 units/ml) 5,000 units EVERY 12 HOURS SUBQ 09/29/17 21:00 10/28/17 20:59 10/01/17 08:36 Lactulose (Cephulac) 20 gm DAILYPRN PRN ORAL Constipation (AFTER MIRALAX) 09/29/17 14:09 10/28/17 14:08 Lactulose (Cephulac) 30 gm THREE TIMES A DAY NG 09/30/17 13:00 10/30/17 12:59 10/01/17 17:23 Levetiracetam (Keppra) 1,000 mg DAILY ORAL 09/30/17 09:00 10/29/17 08:59 10/01/17 08:32 Lorazepam (Ativan 2mg/ml 1ml) 2 mg Q1H PRN IV SEIZURES 09/29/17 14:09 10/05/17 14:08 Ondansetron HCl (Zofran) 4 mg Q6H PRN IVP Nausea & Vomiting 09/29/17 14:09 10/28/17 14:08 Polyethylene Glycol (Miralax) 17 gm HSPRN PRN ORAL Constipation (GIVE FIRST) 09/29/17 21:00 10/28/17 20:59 Zolpidem Tartrate (Ambien) 5 mg HSPRN PRN ORAL Insomnia 09/29/17 21:00 10/05/17 20:59 Milly Banuelos MD October 01, 2017 19:08
[2017-10-01 20:00] VITALS: BP 142/74
--- NOTE | 2017-10-01 21:30 | Consultation ---
DATE OF CONSULTATION: 10/01/2017 NOTE: CANCELED DICTATION HEMATOLOGY/ONCOLOGY CONSULTATION CONSULTING PHYSICIAN: Cricket Prieto M.D. REQUESTING PHYSICIAN: Milly Banuelos M.D. Cricket Prieto M.D. DR: MAXINE JOB#: [id number] CC:
[2017-10-01] MEDS: Piperacillin/Tazobactam 3.375 GM in NS 110 ML IVPB SCH (22:00)
--- NOTE | 2017-10-01 23:23 | Consultation ---
History of Present Illness General Date patient seen: September 30, 2017 Chief Complaint: Dyspnea/Respdistress Present Illness HPI The patient with mmp presents emergency department today with generalized weakness and recurrent seizures. Patient has severe dementia and is unable to participate in evaluation. the pt eyes are closed and at time shakes. the pt in addition had a stroke. The pt is agitated at times. Allergies: Coded Allergies: No Known Allergies (Unverified , 01/11/16) Medication History Scheduled Amlodipine Besylate (Norvasc), 5 MG ORAL DAILY Aspirin* (Aspirin*), 325 MG ORAL DAILY, (Reported) Atorvastatin Calcium* (Atorvastatin Calcium*), 20 MG ORAL BEDTIME, (Reported) Atorvastatin Calcium* (Lipitor*), 20 MG ORAL BEDTIME, (Reported) Ceftriaxone Sod (Ceftriaxone 1 gm-D5w Bag), 1 GM IVPB DAILY Divalproex Sodium (Depakote Sprinkle), 500 MG PO BID, (Reported) Docusate Sodium* (Docusate Sodium*), 200 MG ORAL DAILY, (Reported) Levetiracetam (Keppra), 10 ML ORAL DAILY, (Reported) Levetiracetam (Keppra), 1,000 MG ORAL DAILY Multivitamin (Multi-Vitamin Daily), 1 EACH PO DAILY, (Reported) Polyvinyl Alcohol (Polyvinyl Alcohol), 15 ML OP QID, (Reported) Potassium Chloride (Potassium Chloride), 20 MEQ ORAL DAILY, (Reported) Scheduled PRN Acetaminophen* (Acetaminophen 325MG Tablet*), 650 MG ORAL Q6H PRN for For Pain, (Reported) Lactulose (Lactulose*), 30 ML ORAL DAILY PRN for Constipation, (Reported) Miscellaneous Medications Cyanocobalamin (Vitamin B-12) (Vitamin B-12), 100 MCG PO, (Reported) Patient History Limited by: medical condition History Provided By: Medical Record, PMD Healthcare decision maker Resuscitation status Full Code Advanced Directive on File Past Medical/Surgical History Past Medical/Surgical History: (1) UTI (urinary tract infection) (2) Acute encephalopathy (3) Comfort measures only status (4) Limited mobility (5) old [employer] stroke (6) Fever (7) Hypokalemia (8) Uncontrolled seizures (9) Status epilepticus (10) Sepsis (11) DNR (do not resuscitate) (12) Status post CVA (13) chronic seizure disorder, exacerbation Review of Systems Psychiatric: Reports: prior hx, anxiety, depressed feelings, emotional problems Physical Exam General Appearance: WD/WN, no apparent distress, confused, agitated Last 24 Hour Vital Signs Date Time Temp Pulse Resp B/P (MAP) Pulse Ox O2 Delivery O2 Flow Rate FiO2 10/01/17 20:14 Nasal Cannula 3.0 32 10/01/17 20:14 95 Nasal Cannula 3.0 32 10/01/17 20:14 98 20 Nasal Cannula 3.0 32 10/01/17 20:00 98.2 117 24 142/74 94 98.2 10/01/17 16:06 97.5 112 20 132/79 94 Nasal Cannula 2.0 97.5 10/01/17 12:00 97.7 103 20 132/71 97 Nasal Cannula 2.0 97.7 10/01/17 09:20 94 Nasal Cannula 3.0 32 10/01/17 09:20 100 20 Nasal Cannula 3.0 32 10/01/17 09:20 Nasal Cannula 3.0 32 10/01/17 08:33 91 134/68 10/01/17 08:00 96.3 91 20 134/68 94 Nasal Cannula 2.0 96.3 10/01/17 04:00 99.1 85 16 114/64 95 Nasal Cannula 2.0 99.1 10/01/17 00:00 99.1 91 18 103/57 95 Nasal Cannula 2.0 99.1 Intake and Output 09/30/17 10/01/17 19:00 07:00 Intake Total 80 ml 520 ml Balance 80 ml 520 ml Intake Free Water 50 ml 160 ml Tube Feeding 30 ml 360 ml # Voids 2 5 # Bowel Movements 1 5 Height (Feet): 5 Height (Inches): 7.00 Weight (Pounds): 170 Medications Current Medications Medications (Trade) Dose Ordered Sig/Andra Route PRN Reason Start Time Stop Time Status Last Admin Dose Admin Acetaminophen (Tylenol) 650 mg Q4H PRN ORAL T>100.5 09/29/17 14:07 10/28/17 14:06 Al Hydroxide/Mg Hydroxide (Mylanta II) 30 ml Q6H PRN ORAL dyspepsia 09/29/17 14:07 10/28/17 14:06 Albuterol/ Ipratropium (Albuterol/ Ipratropium) 3 ml Q4H PRN HHN Shortness of Breath 09/29/17 14:08 10/04/17 14:07 09/30/17 14:49 Amlodipine Besylate (Norvasc) 5 mg DAILY NG 09/30/17 09:00 10/30/17 08:59 10/01/17 08:33 Aspirin (ASA) 325 mg DAILY ORAL 09/30/17 09:00 10/29/17 08:59 10/01/17 08:32 Atorvastatin Calcium (Lipitor) 20 mg BEDTIME ORAL 09/29/17 21:00 10/28/17 20:59 10/01/17 21:05 Clonidine HCl (Catapres Tab) 0.1 mg Q6H PRN ORAL sbp above 160 09/30/17 09:30 10/30/17 09:29 Dextrose (Dextrose 50%) 25 ml STAT PRN IV HYPOGLYCEMIA BS 61-69 09/29/17 14:08 10/29/17 14:07 Dextrose (Dextrose 50%) 50 ml STAT PRN IV HYPOGLYCEMIA BS less than 60 09/29/17 14:08 10/29/17 14:07 Divalproex Sodium (Depakote Sprinkles) 500 mg Q12HR ORAL 09/29/17 21:00 10/28/17 20:59 10/01/17 21:04 Heparin Sodium (Porcine) (Heparin 5000 units/ml) 5,000 units EVERY 12 HOURS SUBQ 09/29/17 21:00 10/28/17 20:59 10/01/17 08:36 Lactulose (Cephulac) 20 gm DAILYPRN PRN ORAL Constipation (AFTER MIRALAX) 09/29/17 14:09 10/28/17 14:08 Lactulose (Cephulac) 30 gm THREE TIMES A DAY NG 09/30/17 13:00 10/30/17 12:59 10/01/17 17:23 Levetiracetam (Keppra) 1,000 mg DAILY ORAL 09/30/17 09:00 10/29/17 08:59 10/01/17 08:32 Lorazepam (Ativan 2mg/ml 1ml) 2 mg Q1H PRN IV SEIZURES 09/29/17 14:09 10/05/17 14:08 Ondansetron HCl (Zofran) 4 mg Q6H PRN IVP Nausea & Vomiting 09/29/17 14:09 10/28/17 14:08 Piperacillin Sod/ Tazobactam Sod 3.375 gm/Sodium Chloride 110 ml @ 220 mls/hr EVERY 8 HOURS IVPB 10/01/17 22:00 10/08/17 21:59 Polyethylene Glycol (Miralax) 17 gm HSPRN PRN ORAL Constipation (GIVE FIRST) 09/29/17 21:00 10/28/17 20:59 Zolpidem Tartrate (Ambien) 5 mg HSPRN PRN ORAL Insomnia 09/29/17 21:00 10/05/17 20:59 Assessment/Plan Assessment/Plan Severe dementia encephalopathy Lacks capacity to make decisions -no additional meds -rec comfort care Josefina Spencer M.D. October 01, 2017 23:23
[2017-10-02] VITALS (7 sets, daily range): BP systolic 99–145; BP diastolic 56–84
[2017-10-02] MEDS: Piperacillin/Tazobactam 3.375 GM in NS 110 ML IVPB SCH ×4 (05:16→20:22)
[2017-10-02] MEDS: Lactulose 20gm/30ml UDC NG SCH ×3 (08:23→17:13)
[2017-10-02] MEDS: Depakote 125mg Sprinkles ORAL SCH ×2 (08:24→20:19)
[2017-10-02] MEDS: levETIRAcetam 500mg/5ml Liquid ORAL SCH (08:25)
[2017-10-02] MEDS: Heparin 5000 units/ml inj SUBQ SCH ×2 (08:26→20:20)
--- NOTE | 2017-10-02 12:25 | Pulmonology Progress Note ---
Assessment/Plan Problems: (1) Sepsis (2) DNR (do not resuscitate) (3) Status post CVA (4) chronic seizure disorder, exacerbation Assessment/Plan castillo culture iv abx Neuro evaluation social worker [facility] "pt is comfort care only". Needs to be on hospice. Subjective ROS Limited/Unobtainable: Yes Constitutional: Reports: no symptoms HEENT: Repors: no symptoms Respiratory: Reports: no symptoms Allergies: Coded Allergies: No Known Allergies (Unverified , 01/11/16) Objective Last 24 Hour Vital Signs Date Time Temp Pulse Resp B/P (MAP) Pulse Ox O2 Delivery O2 Flow Rate FiO2 10/02/17 08:24 114 138/77 10/02/17 08:09 98.4 114 18 138/77 93 98.4 10/02/17 07:38 96 Nasal Cannula 2.0 28 10/02/17 07:38 Nasal Cannula 2.0 28 10/02/17 07:38 106 21 Nasal Cannula 2.0 28 10/02/17 04:22 94 Nasal Cannula 2.0 10/02/17 04:00 98.1 111 24 145/72 98.1 10/02/17 00:00 Nasal Cannula 2.0 10/02/17 00:00 98.5 108 24 116/59 95 98.5 10/01/17 20:14 Nasal Cannula 3.0 32 10/01/17 20:14 95 Nasal Cannula 3.0 32 10/01/17 20:14 98 20 Nasal Cannula 3.0 32 10/01/17 20:00 Nasal Cannula 2.0 10/01/17 20:00 98.2 117 24 142/74 94 98.2 10/01/17 16:06 97.5 112 20 132/79 94 Nasal Cannula 2.0 97.5 Intake and Output 10/01/17 10/02/17 19:00 07:00 Intake Total 470 ml 430 ml Output Total 250 ml Balance 470 ml 180 ml Intake Free Water 110 ml 100 ml Tube Feeding 360 ml 330 ml Output Urine Total 250 ml # Voids 3 2 # Bowel Movements 1 2 General Appearance: WD/WN HEENT: normocephalic, anicteric Respiratory/Chest: chest wall non-tender Cardiovascular: normal peripheral pulses, regular rhythm Abdomen: normal bowel sounds, no organomegaly Genitourinary: normal external genitalia Extremities: no cyanosis Skin: no rash Neurologic/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: 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 grossly normal Lymphatic: no groin adenopathy Current Medications Medications (Trade) Dose Ordered Sig/Andra Route PRN Reason Start Time Stop Time Status Last Admin Dose Admin Acetaminophen (Tylenol) 650 mg Q4H PRN ORAL T>100.5 09/29/17 14:07 10/28/17 14:06 Al Hydroxide/Mg Hydroxide (Mylanta II) 30 ml Q6H PRN ORAL dyspepsia 09/29/17 14:07 10/28/17 14:06 Albuterol/ Ipratropium (Albuterol/ Ipratropium) 3 ml Q4H PRN HHN Shortness of Breath 09/29/17 14:08 10/04/17 14:07 09/30/17 14:49 Amlodipine Besylate (Norvasc) 5 mg DAILY NG 09/30/17 09:00 10/30/17 08:59 10/02/17 08:24 Aspirin (ASA) 325 mg DAILY ORAL 09/30/17 09:00 10/29/17 08:59 10/02/17 08:23 Atorvastatin Calcium (Lipitor) 20 mg BEDTIME ORAL 09/29/17 21:00 10/28/17 20:59 10/01/17 21:05 Clonidine HCl (Catapres Tab) 0.1 mg Q6H PRN ORAL sbp above 160 09/30/17 09:30 10/30/17 09:29 Dextrose (Dextrose 50%) 25 ml STAT PRN IV HYPOGLYCEMIA BS 61-69 09/29/17 14:08 10/29/17 14:07 Dextrose (Dextrose 50%) 50 ml STAT PRN IV HYPOGLYCEMIA BS less than 60 09/29/17 14:08 10/29/17 14:07 Divalproex Sodium (Depakote Sprinkles) 500 mg Q12HR ORAL 09/29/17 21:00 10/28/17 20:59 10/02/17 08:24 Heparin Sodium (Porcine) (Heparin 5000 units/ml) 5,000 units EVERY 12 HOURS SUBQ 09/29/17 21:00 10/28/17 20:59 10/02/17 08:26 Lactulose (Cephulac) 20 gm DAILYPRN PRN ORAL Constipation (AFTER MIRALAX) 09/29/17 14:09 10/28/17 14:08 Lactulose (Cephulac) 30 gm THREE TIMES A DAY NG 09/30/17 13:00 10/30/17 12:59 10/02/17 08:23 Levetiracetam (Keppra) 1,000 mg DAILY ORAL 09/30/17 09:00 10/29/17 08:59 10/02/17 08:25 Lorazepam (Ativan 2mg/ml 1ml) 2 mg Q1H PRN IV SEIZURES 09/29/17 14:09 10/05/17 14:08 Ondansetron HCl (Zofran) 4 mg Q6H PRN IVP Nausea & Vomiting 09/29/17 14:09 10/28/17 14:08 Piperacillin Sod/ Tazobactam Sod 3.375 gm/Sodium Chloride 110 ml @ 220 mls/hr EVERY 8 HOURS IVPB 10/01/17 22:00 10/08/17 21:59 Polyethylene Glycol (Miralax) 17 gm HSPRN PRN ORAL Constipation (GIVE FIRST) 09/29/17 21:00 10/28/17 20:59 Zolpidem Tartrate (Ambien) 5 mg HSPRN PRN ORAL Insomnia 09/29/17 21:00 10/05/17 20:59 Milly Banuelos MD October 02, 2017 12:25
--- NOTE | 2017-10-02 14:15 | Consultation ---
DATE OF CONSULTATION: 10/01/2017 HEMATOLOGY AND ONCOLOGY CONSULTATION CONSULTING PHYSICIAN: Cricket Prieto M.D. REFERRING PHYSICIAN: Milly Banuelos M.D. REASON FOR CONSULTATION: Evaluation of thrombocytopenia. IDENTIFYING DATA: Dear Dr. Banuelos, The patient is a pleasant 66-year-old male with past medical history significant for hypertension, hyperkalemia, constipation, seizure disorder, and hyperlipidemia, at this time, presents to the [facility] with weakness as well as recurrent seizures, EMS was contacted. The patient brought into the hospital, received Versed en route continue to have seizures. Unable to provide any further history. Currently is sleeping. Also history obtained from medical record. No other symptoms noted. The patient is noted to have a thrombocytopenia. Therefore, Hematology Service consulted for further evaluation and treatment. PAST MEDICAL HISTORY: Seizure recurrence, history of thrombocytopenia. MEDICATIONS: Amlodipine, aspirin, , valproic acid, Keppra, multivitamin, and potassium chloride. ALLERGIES: No known drug allergies. FAMILY HISTORY: Noncontributory. REVIEW OF SYSTEMS: CONSTITUTIONAL: No fever, chills, or night sweats. SKIN: No rashes, bumps, or itching. HEENT: No headache, hearing or vision changes. BREASTS: No lumps, pain, or discharge. PULMONARY: No cough, sputum, or shortness of breath. GASTROINTESTINAL: No nausea, vomiting, or diarrhea. GENITOURINARY: No dysuria, frequency, or urgency. MUSCULOSKELETAL: No joint swelling, muscle pain, or trauma. PHYSICAL EXAMINATION: VITAL SIGNS: Reviewed. GENERAL: No acute distress. PULMONARY: Decreased breath sounds. CARDIOVASCULAR: Regular rate. No S3 or S4. ABDOMEN: Soft, nontender, and nondistended. EXTREMITIES: No cyanosis, swelling, or edema noted. LABORATORY DATA: Labs, potassium 2.3, glucose 125. WBC 11.4, hemoglobin 14, hematocrit 41, and platelet count 125,000. Valproic acid level is 75. The imaging has been reviewed. Chest x-ray, study obtained patchy left basilar opacities without atelectasis versus scarring possibility of infiltrate. ASSESSMENT AND RECOMMENDATIONS: 1. Thrombocytopenia, potentially secondary to underlying medication, unknown medication. The patient is currently comfort care only per review of the record. At this time, obtain hepatitis panel, human immunodeficiency virus, ultrasound of the abdomen. No further laboratories and/or imaging from Hematology perspective. 2. Anemia due to underlying chronic disease. 3. Seizure disorder, currently better controlled. The patient remained sleepy at this time. He has been seen by Psychiatry service as well as Neurology. 4. Hypokalemia. potassium as needed. 5. Encephalopathy status post cerebrovascular accident to be seen by Neurology as well as Psychiatry services. Cricket Prieto M.D. DR: GAMA JOB#: [id number] CC:
--- NOTE | 2017-10-02 14:19 | General Progress Note ---
Assessment/Plan Status: not improved, unchanged Assessment/Plan Severe dementia encephalopathy Lacks capacity to make decisions -no additional meds -rec comfort care Subjective Date patient seen: October 01, 2017 Allergies: Coded Allergies: No Known Allergies (Unverified , 01/11/16) Subjective the pt is not engaged due to severe cognitive impairment Objective Last 24 Hour Vital Signs Date Time Temp Pulse Resp B/P (MAP) Pulse Ox O2 Delivery O2 Flow Rate FiO2 10/02/17 12:49 98.0 93 18 129/76 93 98.0 10/02/17 08:24 114 138/77 10/02/17 08:09 98.4 114 18 138/77 93 98.4 10/02/17 07:38 96 Nasal Cannula 2.0 28 10/02/17 07:38 Nasal Cannula 2.0 28 10/02/17 07:38 106 21 Nasal Cannula 2.0 28 10/02/17 04:22 94 Nasal Cannula 2.0 10/02/17 04:00 98.1 111 24 145/72 98.1 10/02/17 00:00 Nasal Cannula 2.0 10/02/17 00:00 98.5 108 24 116/59 95 98.5 10/01/17 20:14 Nasal Cannula 3.0 32 10/01/17 20:14 95 Nasal Cannula 3.0 32 10/01/17 20:14 98 20 Nasal Cannula 3.0 32 10/01/17 20:00 Nasal Cannula 2.0 10/01/17 20:00 98.2 117 24 142/74 94 98.2 10/01/17 16:06 97.5 112 20 132/79 94 Nasal Cannula 2.0 97.5 Intake and Output 10/01/17 10/02/17 19:00 07:00 Intake Total 470 ml 430 ml Output Total 250 ml Balance 470 ml 180 ml Intake Free Water 110 ml 100 ml Tube Feeding 360 ml 330 ml Output Urine Total 250 ml # Voids 3 2 # Bowel Movements 1 2 Height (Feet): 5 Height (Inches): 7.00 Weight (Pounds): 170 General Appearance: WD/WN, no apparent distress, confused, agitated Josefina Spencer M.D. October 02, 2017 14:19
--- NOTE | 2017-10-02 16:28 | Consultation ---
Consult Note Assessment/Plan A/ 1) Onychomycosis 2) Periungual inflammation 3) Abnormal gait and mobility P/ 1) Toenails were debrided x5 right foot. Left foot nails WNL 2) Cont heel protectors Thank you Liliana/Vinh Baezshcorrie CAIN October 02, 2017 16:28
--- NOTE | 2017-10-03 00:14 | General Progress Note ---
Assessment/Plan Assessment/Plan ASSESSMENT AND RECOMMENDATIONS: 1. Thrombocytopenia, potentially secondary to underlying medication, unknown medication. --> The patient is currently comfort care only per review of the record. --> At this time, obtain hepatitis panel, human immunodeficiency virus, ultrasound of the abdomen. --> No further laboratories and/or imaging from Hematology perspective. 2. Anemia due to underlying chronic disease. --> Mild at this time. --> Blood transfusion not needed. 3. Seizure disorder, currently better controlled. The patient remained sleepy at this time. --> He has been seen by Psychiatry service as well as Neurology. 4. Hypokalemia. Monitor potassium as needed. 5. Encephalopathy status post cerebrovascular accident to be seen by Neurology as well as Psychiatry services. 6. Sepsis. Subjective Date patient seen: October 02, 2017 Constitutional: Denies: no symptoms, chills, diaphoresis, fever, malaise, weakness, other HEENT: Denies: no symptoms, eye pain, blurred vision, tearing, double vision, ear pain, ear discharge, nose pain, nose congestion, throat pain, throat swelling, mouth pain, mouth swelling, other Cardiovascular: Denies: no symptoms, chest pain, edema, irregular heart rate, lightheadedness, palpitations, syncope, other Respiratory: Denies: no symptoms, cough, orthopnea, shortness of breath, SOB with excertion, SOB at rest, sputum, stridor, wheezing, other Gastrointestinal/Abdominal: Denies: no symptoms, abdomen distended, abdominal pain, black stools, tarry stools, blood in stool, constipated, diarrhea, difficulty swallowing, nausea, poor appetite, poor fluid intake, rectal bleeding , vomiting, other Genitourinary: Denies: no symptoms, burning, discharge, frequency, flank pain, hematuria, incontinence, pain, urgency, other Neurologic/Psychiatric: Denies: no symptoms, anxiety, depressed, emotional problems, headache, numbness, paresthesia, pre-existing deficit, seizure, tingling, tremors, weakness, other Hematologic/Lymphatic: Reports: anemia Allergies: Coded Allergies: No Known Allergies (Unverified , 01/11/16) Subjective On antibiotics. Comfort care. No fever. Leukocytosis. Objective Last 24 Hour Vital Signs Date Time Temp Pulse Resp B/P (MAP) Pulse Ox O2 Delivery O2 Flow Rate FiO2 10/02/17 20:42 99.1 101 18 106/84 93 99.1 10/02/17 16:00 Nasal Cannula 2.0 10/02/17 15:56 98.4 99 22 141/77 95 98.4 10/02/17 12:49 98.0 93 18 129/76 93 98.0 10/02/17 08:24 114 138/77 10/02/17 08:09 98.4 114 18 138/77 93 98.4 10/02/17 07:38 96 Nasal Cannula 2.0 28 10/02/17 07:38 Nasal Cannula 2.0 28 10/02/17 07:38 106 21 Nasal Cannula 2.0 28 10/02/17 04:22 94 Nasal Cannula 2.0 10/02/17 04:00 98.1 111 24 145/72 98.1 Intake and Output 10/02/17 10/03/17 19:00 07:00 Intake Total 170 ml Balance 170 ml Intake Free Water 50 ml Tube Feeding 120 ml # Voids 3 # Bowel Movements 1 1 Labs Test 09/30/17 08:30 09/30/17 11:25 White Blood Count 11.4 K/UL (4.8-10.8) Red Blood Count 4.51 M/UL (4.70-6.10) Hemoglobin 14.0 G/DL (14.2-18.0) Hematocrit 41.4 % (42.0-52.0) Mean Corpuscular Volume 92 FL (80-99) Mean Corpuscular Hemoglobin 31.1 PG (27.0-31.0) Mean Corpuscular Hemoglobin Concent 33.9 G/DL (32.0-36.0) Red Cell Distribution Width 14.4 % (11.6-14.8) Platelet Count 125 K/UL (150-450) Mean Platelet Volume 6.5 FL (6.5-10.1) Neutrophils (%) (Auto) 70.4 % (45.0-75.0) Lymphocytes (%) (Auto) 14.1 % (20.0-45.0) Monocytes (%) (Auto) 14.9 % (1.0-10.0) Eosinophils (%) (Auto) 0.0 % (0.0-3.0) Basophils (%) (Auto) 0.6 % (0.0-2.0) Sodium Level 147 MMOL/L (136-145) Potassium Level 2.3 MMOL/L (3.5-5.1) Chloride Level 108 MMOL/L (98-107) Carbon Dioxide Level 28 MMOL/L (21-32) Anion Gap 10 mmol/L (5-15) Blood Urea Nitrogen 13 mg/dL (7-18) Creatinine 0.6 MG/DL (0.55-1.30) Estimat Glomerular Filtration Rate > 60 mL/min (>60) Glucose Level 125 MG/DL (74-106) Calcium Level 9.0 MG/DL (8.5-10.1) Magnesium Level 1.9 MG/DL (1.8-2.4) Ammonia 66 umol/L (11-32) Height (Feet): 5 Height (Inches): 7.00 Weight (Pounds): 170 General Appearance: WD/WN EENT: normal ENT inspection Neck: normal alignment, supple Cardiovascular: tachycardia Respiratory/Chest: chest wall non-tender, lungs clear Abdomen: non tender, no organomegaly Cricket Prieto MD October 03, 2017 00:14
[2017-10-03 00:35] VITALS: BP 115/72
[2017-10-03] MEDS: Albuterol/Ipratropium 3ml neb HHN PRN (03:34)
[2017-10-03 04:23] VITALS: BP 105/66
[2017-10-03] MEDS: Depakote 125mg Sprinkles ORAL SCH (08:33)
[2017-10-03] MEDS: Lactulose 20gm/30ml UDC NG SCH ×2 (08:33→12:45)
[2017-10-03] MEDS: levETIRAcetam 500mg/5ml Liquid ORAL SCH (08:34)
[2017-10-03] MEDS: Heparin 5000 units/ml inj SUBQ SCH (08:34)
[2017-10-03 08:41] VITALS: BP 119/63
[2017-10-03 12:51] VITALS: BP 118/65
[2017-10-03] MEDS ORDERED: MORPHINE S10 MG/5 ML ORAL (13:24)
[2017-10-03] MEDS: Piperacillin/Tazobactam 3.375 GM in NS 110 ML IVPB SCH (14:00)
--- NOTE | 2017-10-03 16:02 | General Progress Note ---
Assessment/Plan Assessment/Plan Severe dementia encephalopathy Lacks capacity to make decisions -no additional meds -rec comfort care Subjective Date patient seen: October 03, 2017 Neurologic/Psychiatric: Reports: anxiety, depressed, emotional problems Allergies: Coded Allergies: No Known Allergies (Unverified , 01/11/16) Subjective the pt is not engaged due to severe cognitive impairment no agitation Objective Last 24 Hour Vital Signs Date Time Temp Pulse Resp B/P (MAP) Pulse Ox O2 Delivery O2 Flow Rate FiO2 10/03/17 12:51 97.0 111 20 118/65 95 Venturi Mask 97.0 10/03/17 08:41 99.0 118 28 119/63 96 Venturi Mask 99.0 10/03/17 08:35 96 Venturi Mask 10.0 45 10/03/17 08:35 Venturi Mask 10.0 45 10/03/17 08:35 118 21 Venturi Mask 10.0 45 10/03/17 04:30 Venturi Mask 10.0 10/03/17 04:23 98.7 145 23 105/66 94 98.7 10/03/17 03:35 122 24 90 Nasal Cannula 3.0 32 10/03/17 00:45 Nasal Cannula 3.0 10/03/17 00:35 98.9 105 22 115/72 89 98.9 10/02/17 20:45 Nasal Cannula 2.0 10/02/17 20:42 99.1 101 18 106/84 93 99.1 10/02/17 20:28 99 21 Nasal Cannula 2.0 28 10/02/17 20:28 95 Nasal Cannula 2.0 28 10/02/17 20:28 Nasal Cannula 2.0 28 Intake and Output 10/02/17 10/03/17 19:00 07:00 Intake Total 170 ml Output Total 550 ml Balance 170 ml -550 ml Intake Free Water 50 ml Tube Feeding 120 ml Output Urine Total 550 ml # Voids 3 1 # Bowel Movements 1 1 Height (Feet): 5 Height (Inches): 7.00 Weight (Pounds): 170 General Appearance: no apparent distress, alert, confused Josefina Spencer M.D. October 03, 2017 16:02
--- NOTE | 2017-10-03 16:16 | General Progress Note ---
Progress Note Progress Note Bioethics Note The chart was reviewed at the request of staff. He is appropriate for SNF placement and hospice care given that further aggressive care would be futile.He should remain no code and do not intubate. Moshe Hodges MD Bioethics Committee Stockkeeper Moshe Hodges MD October 03, 2017 16:16
--- NOTE | 2017-10-03 23:56 | General Progress Note ---
Assessment/Plan Assessment/Plan ASSESSMENT AND RECOMMENDATIONS: 1. Thrombocytopenia, potentially secondary to underlying medication, unknown medication. --> The patient is currently comfort care only per review of the record. --> At this time, obtain hepatitis panel, human immunodeficiency virus, ultrasound of the abdomen. --> No further laboratories and/or imaging from Hematology perspective. 2. Anemia due to underlying chronic disease. --> Mild at this time. H/H stable. --> Blood transfusion not needed. 3. Seizure disorder, currently better controlled. The patient remained sleepy at this time. --> He has been seen by Psychiatry service as well as Neurology. 4. Hypokalemia. Monitor potassium as needed. 5. Encephalopathy status post cerebrovascular accident to be seen by Neurology as well as Psychiatry services. 6. Sepsis. DC planning. Subjective Date patient seen: October 03, 2017 Constitutional: Denies: no symptoms, chills, diaphoresis, fever, malaise, weakness, other HEENT: Denies: no symptoms, eye pain, blurred vision, tearing, double vision, ear pain, ear discharge, nose pain, nose congestion, throat pain, throat swelling, mouth pain, mouth swelling, other Cardiovascular: Denies: no symptoms, chest pain, edema, irregular heart rate, lightheadedness, palpitations, syncope, other Respiratory: Denies: no symptoms, cough, orthopnea, shortness of breath, SOB with excertion, SOB at rest, sputum, stridor, wheezing, other Gastrointestinal/Abdominal: Denies: no symptoms, abdomen distended, abdominal pain, black stools, tarry stools, blood in stool, constipated, diarrhea, difficulty swallowing, nausea, poor appetite, poor fluid intake, rectal bleeding , vomiting, other Genitourinary: Denies: no symptoms, burning, discharge, frequency, flank pain, hematuria, incontinence, pain, urgency, other Neurologic/Psychiatric: Denies: no symptoms, anxiety, depressed, emotional problems, headache, numbness, paresthesia, pre-existing deficit, seizure, tingling, tremors, weakness, other Hematologic/Lymphatic: Reports: anemia Allergies: Coded Allergies: No Known Allergies (Unverified , 01/11/16) Subjective No new events overnight. H/H stable. Pending discharge for hospice. Objective Last 24 Hour Vital Signs Date Time Temp Pulse Resp B/P (MAP) Pulse Ox O2 Delivery O2 Flow Rate FiO2 10/03/17 12:51 97.0 111 20 118/65 95 Venturi Mask 97.0 10/03/17 08:41 99.0 118 28 119/63 96 Venturi Mask 99.0 10/03/17 08:35 96 Venturi Mask 10.0 45 10/03/17 08:35 Venturi Mask 10.0 45 10/03/17 08:35 118 21 Venturi Mask 10.0 45 10/03/17 04:30 Venturi Mask 10.0 10/03/17 04:23 98.7 145 23 105/66 94 98.7 10/03/17 03:35 122 24 90 Nasal Cannula 3.0 32 10/03/17 00:45 Nasal Cannula 3.0 10/03/17 00:35 98.9 105 22 115/72 89 98.9 Intake and Output 10/02/17 10/03/17 19:00 07:00 Intake Total 170 ml Output Total 550 ml Balance 170 ml -550 ml Intake Free Water 50 ml Tube Feeding 120 ml Output Urine Total 550 ml # Voids 3 1 # Bowel Movements 1 1 Height (Feet): 5 Height (Inches): 7.00 Weight (Pounds): 170 General Appearance: confused Cardiovascular: tachycardia Cricket Prieto MD October 03, 2017 23:56
--- NOTE | 2017-10-04 11:57 | Diagnostic Imaging Report ---
EXAM: XR Abdomen, 2 Views CLINICAL HISTORY: NGT TECHNIQUE: Frontal view of the abdomen/pelvis with upright view of the abdomen. COMPARISON: No relevant prior studies available. FINDINGS: Intraperitoneal space: No free air. Gastrointestinal tract: Nonobstructive bowel gas pattern. Bones/joints: Degenerative changes and scoliosis of the spine. Remote healed right-sided rib fractures. Evidence of prior median sternotomy. Tubes, lines and devices: Enteric tube with tip in sidehole within the gastric body. IMPRESSION: Enteric tube with tip in sidehole within the gastric body.
--- NOTE | 2017-10-04 16:55 | Discharge Summary ---
Discharge Summary Discharge Summary Discharge Summary DATE OF ADMISSION: 09/28/2017 DATE OF DISCHARGE: 10/03/2017 CONSULTANTS: Dr. Cricket Black BRIEF HOSPITAL COURSE: Patient is an 84-year-old male, who presented to ED via EMS for evaluation of generalized weakness and recurrent seizures. Patient had seizure activity at the facility. He received Versed en route and continued to have seizures on arrival. He was unable to provide history, history was obtained through medical records and with discussion with paramedics. He has medical history significant for CAD, asthma, COPD, dementia, seizures, anemia, hyperlipidemia. He came in with a POLST DO NOT RESUSCITATE/DO NOT INTUBATE, comfort measure only and no artificial nutrition. On evaluation at ED, he was given Ativan as well as Keppra. Head CT was negative for acute changes. Blood work showed hypokalemia, urinalysis with 15- 20 RBC and 0-4 wbc. EKG was in normal sinus rhythm with no acute changes. Chest x-ray with no acute disease, sternal wires in place. He was then admitted for evaluation of seizure disorder and encephalopathy. He was placed on seizure precautions. Potassium was replenished. He was continued on Keppra and Depakote. Depakote level was therapeutic. He underwent EEG findings were consistent with severe degree of encephalopathy. Patient was agitated at times. He was seen by psychiatrist and was assessed to lack the capacity to make decisions. Patient has severe dementia and encephalopathy. He has thrombocytopenia possibly secondary to medications. Bioethics was consulted. Patient is Comfort Care only. He is appropriate for hospice care given that further aggressive care would be futile. Recommended to remain no code with DO NOT INTUBATE. He was eventually discharged to SNF. FINAL DIAGNOSES: Acute toxic metabolic encephalopathy secondary to status epilepticus Status epilepticus Seizure disorder in exacerbation Acute hypokalemia Hypertension Hyperlipidemia COPD Thrombocytopenia Dementia Anemia due to chronic disease DNR/DNI status, comfort measures per POLST DISPOSITION: Patient was discharged to [facility] under hospice. DISCHARGE MEDICATIONS: Refer to Discharge Medication List. I have been assigned to dictate discharge summary on this account, and I was not involved in the patient's management. Clarissa Chen NP October 04, 2017 16:55
== END 2017-10-03 16:00 | DRG 871 ==
LOC: EDBD 11:52 → EMR 12:33 → 2E 12:46 → EDBEDREQ 12:55 → 4W 09-29 12:53
DX: A41.9 Sepsis, unspecified organism (principal); G92 Toxic encephalopathy; F01.51 Vascular dementia, unspecified severity, with behavioral disturbance; G40.901 Epilepsy, unspecified, not intractable, with status epilepticus; Z51.5 Encounter for palliative care; D63.8 Anemia in other chronic diseases classified elsewhere; E87.6 Hypokalemia; E78.5 Hyperlipidemia, unspecified; J44.9 Chronic obstructive pulmonary disease, unspecified; D69.6 Thrombocytopenia, unspecified; Z66 Do not resuscitate; I25.10 Atherosclerotic heart disease of native coronary artery without angina pectoris; Z86.73 Personal history of transient ischemic attack (TIA), and cerebral infarction without residual deficits
CPT/HCPCS: 36415; 70450; 71045; 74018; 80048; 80053; 80164; 81003; 82140; 82962; 83735; 85025; 87081; 93005; 94640; 94664; 94760; 95819; 99285; 99291; J7620; J8499